=== PATIENT | male | born 1935 | race Caucasian/White ===

== ENCOUNTER 2021-10-27 19:31 | Outpatient (CLI) | payer OTHER, SELFPAY | END 2021-10-27 19:32 | disposition home or self-care (01) | PROVIDERS: Visit Provider Family Medicine | DX: S09.90XA Unspecified injury of head, initial encounter (principal); W18.30XA Fall on same level, unspecified, initial encounter; Y92.000 Kitchen of unspecified non-institutional (private) residence as the place of occurrence of the external cause | CPT/HCPCS: A0425; A0427 ==

== ENCOUNTER 2021-10-27 19:53 | Emergency (ER) | payer OTHER, SELFPAY ==
[2021-10-27] VITALS (26 sets, daily range): BP systolic 132–144; BP diastolic 78–85; PULSE 69–76; RESP 16–72; TEMP 36.9; O2SAT 93–98; BMI 20.9
--- NOTE | 2021-10-27 19:59 | CRLHL7_ITS ---
For Patients: As a result of the Century Cures Act, medical imaging exams and procedure reports are released immediately into your electronic medical record. You may view this report before your referring provider. If you have questions, please contact your health care provider. INDICATION: Fall with loss of consciousness. TECHNIQUE: CT head without contrast. COMPARISON: None. FINDINGS: CSF spaces: Within normal limits for age. Brain parenchyma and extra-axial spaces: Generalized atrophy. No sign of mass, hemorrhage, or midline shift. No extra-axial fluid collection. Skull base and calvarium: The visualized paranasal sinuses and mastoid air cells demonstrate no acute or significant findings. The visualized orbits are grossly unremarkable. No skull fractures. IMPRESSION: Unremarkable noncontrast head CT for age. No sign of acute injury. Please note that all CT scans at this facility use dose modulation, iterative reconstruction, and/or weight-based dosing when appropriate to reduce radiation dose to as low as reasonably achievable. Dictated by Chaitanya Mckeon MD @ 10/27/2021 8:17:58 PM (Electronically Signed)
--- NOTE | 2021-10-27 19:59 | CRLHL7_ITS ---
For Patients: As a result of the Cures Act, medical imaging exams and procedure reports are released immediately into your electronic medical record. You may view this report before your referring provider. If you have questions, please contact your health care provider. INDICATION: Fall. TECHNIQUE: CT cervical spine without contrast. COMPARISON: None. FINDINGS: Vertebrae: Alignment is normal. There are no fractures or suspicious bony lesions. Discs and facet joints: There are degenerative disc changes most severe at C6-7. There are multilevel degenerative changes in the facets. Extraspinal findings: Paraspinous soft tissues are unremarkable. IMPRESSION: 1. No sign of acute injury. 2. Multilevel degenerative spondylosis. Please note that all CT scans at this facility use dose modulation, iterative reconstruction, and/or weight-based dosing when appropriate to reduce radiation dose to as low as reasonably achievable. Dictated by Chaitanya Mckeon MD @ 10/27/2021 8:20:30 PM (Electronically Signed)
--- NOTE | 2021-10-27 20:14 | ED.GENADULT ---
HPI - General Adult General Date Seen: 10/27/21 Chief complaint: Fall/Minor Trauma Stated complaint: Head Injury Time Seen by Provider: 10/27/21 20:00 Source: patient, EMS and RN notes reviewed Mode of arrival: EMS History of Present Illness HPI narrative: Patient is an 86-year-old male that was brought in by EMS on a trauma team activation. Patient was reportedly clean out the Fridge when he fell backward hitting his head. He reportedly has a history of dizziness and loss of balance. His was reported to be a poor historian per EMS but did state that he lost consciousness. Was unknown how long. Patient was met in the hallway on arrival to the ER. He was taken directly to the CT scan. He had reported to have had abrasion on the back of his head from the fall, not an open cut. It has stopped bleeding by the time he had gotten here. He is unaware if he is on any blood thinners, unaware of medicines. He was alert on arrival there, normal blood sugar per EMS. He is denying any headache, no visual changes, no neck pain, no difficulty breathing. He has had a pacemaker and has had some left upper extremity issues since having the pacemaker. No abdominal pain no numbness tingling weakness reported anywhere. He is following commands moving arms and legs upon request. When asked him if he knew what was happening before the fall he starts talking about the hospital and then states they are trying to take her blood pressure. I do wonder if he actually has a period where he does not remember what happened in his room membrane when the ambulance arrived. EMS did report that he had loss of memory for the events around the fall. He lives in [facility]. Son his present later and states that his dad was helping his mom clean out the freezer which was not working. When he got to the bottom of it, he stood up and became dizzy and fell backwards hitting his head on the floor. His son notes that he has had some problems with dizziness. He is pacemaker defibrillator in, has known left bundle branch block per his son. He does have a cardiomyopathy per his son. He was having issues with ventricular dysrhythmia as an [facility] started amiodarone per his son. Related Data Home Medications Medication Instructions Recorded Confirmed amiodarone 200 mg tablet 200 mg PO Q24H 10/27/21 10/27/21 carvedilol 3.125 mg tablet 3.125 mg PO Q12H 10/27/21 10/27/21 eplerenone 25 mg tablet 12.5 mg PO DAILY 10/27/21 10/27/21 mometasone 50 mcg/actuation nasal 2 spray intranasal DAILY 10/27/21 10/27/21 spray multivitamin (Daily Multi-Vitamin 1 tab PO DAILY 10/27/21 10/27/21 tablet) pravastatin 80 mg tablet 80 mg PO DAILY 10/27/21 10/27/21 rivastigmine tartrate 1.5 mg 6 mg PO BID 10/27/21 10/27/21 capsule sertraline 50 mg tablet 50 mg PO Q24H 10/27/21 10/27/21 tamsulosin 0.4 mg capsule 0.4 mg PO Q24H 10/27/21 10/27/21 vitamin A-vitamin C-vit E-min 1 tab PO DAILY 10/27/21 10/27/21 tablet (Ocutabs tablet) Allergies Allergy/AdvReac Type Severity Reaction Status Date / Time bupropion [From Wellbutrin] Allergy Verified 10/27/21 20:23 Review of Systems Status of ROS: Reports: 10 or more systems reviewed and unremarkable except as noted in History and below [facility] Medical History (Updated 10/27/21 @ 21:34 by Milady Matthews MD) Cardiac abnormality Dementia Pacemaker Social History Smoking Status: Former smoker Do you use any of these nicotine containing products: None Second hand tobacco smoke exposure: No How often do you have a drink containing alcohol: never AUDIT-C Alcohol total score: 0 Non-prescribed substance use: denies use service: No Exam Const: Vital Signs, click to edit/add: Vital Signs - 24 hr 10/27/21 19:53 Temperature 98.4 F Pulse Rate [Left P ulse Oximeter] 72 Respiratory Rate 20 Blood Pressure [Ri ght Upper Arm] 140/82 H Pulse Oximetry 96 Oxygen Delivery Me thod Room Air Documenting provider has reviewed patient's vital signs: yes Common normals: no apparent distress, no limitations, healthy appearing and alert General appearance: cooperative and comfortable Nutritional appearance: thin Orientation/consciousness: Yes awake and Yes confused HENMT: Common normals: normocephalic, hearing grossly normal bilaterally, external ears normal, external nose normal, nasal mucous membranes and turbinates normal, moist oral mucous membranes and oropharynx normal Head and scalp: normocephalic Nose: external nose normal and nasal mucous membranes and turbinates normal External ear: external ears normal Other: Has dried blood on the back of his head. Will have to examine his scalp closer once cleaned up. Was reported to be an abrasion by EMS. No midline tenderness of his neck but he is in a C-collar per EMS. Eye: Common normals: PERRL, EOMs intact bilaterally, conjunctivae normal and no scleral icterus Conjunctiva: conjunctiva(e) normal Pupil: PERRL Neck & C-Spine: Cervical spine: collar present (No midline tenderness noted) Chest: Common normals: inspection of chest normal Resp: Common normals: normal respiratory effort, no retractions, no use of accessory muscles and clear to auscultation bilaterally Auscultation: clear to auscultation bilaterally Cardio: Common normals: regular rate, regular rhythm, S1 normal heart sound, S2 normal heart sound, no gallops, no clicks and no murmurs Rate: regular rate Rhythm: regular rhythm Heart sounds: S1 normal and S2 normal GI: Common normals: Normal to inspection, nondistended, normoactive bowel sounds present, soft to palpation, non-tender, no hepatosplenomegaly and no masses Palpation: soft and no hepatosplenomegaly Extremity: Common normals: normal to inspection, full ROM, no joint enlargement, no calf tenderness and no pedal edema Neuro: Allyn Coma Scale: document GCS findings Ingrid coma scale eye opening: Spontaneous (4) Allyn coma scale verbal response: Orientated (5) (Believe he likely has dementia but is wide awake) Allyn coma scale motor response: Obey commands (6) Ingrid coma scale total score: 15 Common normals: CN's II-XII intact bilaterally, moves all extremities, no focal motor deficits and no sensory deficits noted Sensorium/orientation: awake and alert Course Course Hospital Course: Patient will be going directly to CT scan for noncontrast head CT and cervical spine CT. When he returns to the ER we will do further evaluation workup. I will attempt to look up some prior history on him in the interim. Reevaluation(s) Reevaluation #1: Did remove patient's C-spine collar and he had good range of motion no complaints of pain nontender. On his left occipital area there is about a 2 cm vertically situated laceration, mildly oozing. This will need repair. He has no midline tenderness over his back, back inspected at this point and no visible traumatic changes either. Did look in our old [facility] and there is only a sleep study. Time: 20:45 Vital Signs Vital signs: Initial Vital Signs Temperature 98.4 F 10/27/21 19:53 Temperature Source Temporal Artery Scan 10/27/21 19:53 Pulse Rate 72 10/27/21 19:53 Respiratory Rate 20 10/27/21 19:53 Blood Pressure 140/82 H 10/27/21 19:53 Blood Pressure Mean 101 10/27/21 19:53 Blood Pressure Position Sitting 10/27/21 19:53 Pulse Oximetry 96 10/27/21 19:53 Oxygen Delivery Method 10/27/21 19:53 Vital Signs Temperature 98.4 F 10/27/21 19:53 Pulse Rate 72 10/27/21 19:53 Respiratory Rate 20 10/27/21 19:53 Blood Pressure 140/82 H 10/27/21 19:53 Pulse Oximetry 96 10/27/21 19:53 Oxygen Delivery Method 10/27/21 19:53 Temperature 98.4 F 10/27/21 19:53 Pulse Rate 72 10/27/21 19:53 Respiratory Rate 20 10/27/21 19:53 Blood Pressure 140/82 H 10/27/21 19:53 Pulse Oximetry 96 10/27/21 19:53 Oxygen Delivery Method 10/27/21 19:53 Medical Decision Making Lab Data Lab results reviewed: Yes I reviewed the patient's lab results Labs: Lab Results 10/27/21 10/27/21 Range/Units 08:52 20:53 WBC 6.03 (4.50-11.00) K/uL RBC 3.71 L (4.30-5.90) m/uL Hgb 11.6 L (13.5-17.5) gm/dL Hct 35.8 L (37.0-53.0) % MCV 97 (80-100) fL MCH 31 (26-34) pg MCHC 32 (32-36) gm/dL RDW Coeff of Claudia 14.0 (11.5-15.5) % Plt Count 144 (140-440) K/uL Neut % (Auto) 63.8 (42.0-72.0) % Lymph % (Auto) 19.7 L (20-44) % Green % (Auto) 13.4 H (0.0-11.0) % Eos % (Auto) 2.5 (0.0-7.0) % Baso % (Auto) 0.3 (0.0-3.0) % Neut # (Auto) 3.84 (1.7-7.0) K/uL Lymph # (Auto) 1.20 (0.90-2.90) K/uL Green # (Auto) 0.80 (0.00-0.90) K/UL Eos # (Auto) 0.15 (0.00-0.50) K/uL Baso # (Auto) 0.02 (0.00-0.30) K/uL Abs Immat Gran (auto) 0.02 (0.00-0.30) K/uL Sodium 139 (135-149) mmol/L Potassium 4.0 (3.6-5.1) mmol/L Chloride 105 (96-114) mmol/L Carbon Dioxide 27 (20-32) mmol/L BUN 23 (7-30) mg/dL Creatinine 1.2 (0.5-1.5) mg/dL Estimated Creat Clear 44.47 Estimated GFR 59 ml/min Glucose 92 (60-115) mg/dL Calcium 9.1 (8.4-10.6) mg/dL Total Bilirubin 0.4 (0.1-1.5) mg/dL AST 30 (12-35) U/L ALT 25 (4-50) U/L Alkaline Phosphatase 46 (40-150) U/L Troponin I < 0.01 L (0.01-0.04) ng/mL Total Protein 7.3 (6.0-8.3) g/dL Albumin 4.1 (3.3-5.0) g/dL Imaging Data CT scan - head: Attestation: I have reviewed the pertinent imaging results. Radiologist's impression: Patient: HAO NUÑEZ Facility:?[facility] Patient ID:?[id number] Site Patient ID:?[id number]. Site :?[id number] Study:?CT Head WITHOUT-10/27/2021 8:07:28 PM Ordering Physician:?Cassie Henning Final Report: INDICATION: Fall with loss of consciousness. TECHNIQUE: CT head without contrast. COMPARISON: None. FINDINGS: CSF spaces: Within normal limits for age. Brain parenchyma and extra-axial spaces: Generalized atrophy. No sign of mass, hemorrhage, or midline shift. No extra-axial fluid collection. Skull base and calvarium: The visualized paranasal sinuses and mastoid air cells demonstrate no acute or significant findings. The visualized orbits are grossly unremarkable. No skull fractures. IMPRESSION: Unremarkable noncontrast head CT for age. No sign of acute injury. Please note that all CT scans at this facility use dose modulation, iterative reconstruction, and/or weight-based dosing when appropriate to reduce radiation dose to as low as reasonably achievable. Dictated by Chaitanya Mckeon MD @ 10/27/2021 8:17:58 PM (Electronic Signature) CT- Other: Attestation: I have reviewed the pertinent imaging results. Radiologist's impression: Patient: HAO NUÑEZ Facility:?[facility] Patient ID:?[id number] Site Patient ID:?[id number]. Site :?[id number] Study:?CT Spine Cervical WITHOUT-10/27/2021 8:07:55 PM Ordering Physician:?Cassie Henning Final Report: INDICATION: Fall. TECHNIQUE: CT cervical spine without contrast. COMPARISON: None. FINDINGS: Vertebrae: Alignment is normal. There are no fractures or suspicious bony lesions. Discs and facet joints: There are degenerative disc changes most severe at C6-7. There are multilevel degenerative changes in the facets. Extraspinal findings: Paraspinous soft tissues are unremarkable. IMPRESSION: 1. No sign of acute injury. 2. Multilevel degenerative spondylosis. Please note that all CT scans at this facility use dose modulation, iterative reconstruction, and/or weight-based dosing when appropriate to reduce radiation dose to as low as reasonably achievable. Dictated by Chaitanya Mckeon MD @ 10/27/2021 8:20:30 PM (Electronic Signature) ECG Data Attestation: I personally reviewed and interpreted this ECG as follows: (AV dual paced rhythm, 72 beats per minute.) Prior ECG tracings: not available for review Critical Care Time Critical Care Time Critical Care Time: No Discharge Plan Discharge Clinical Impression: Fall, Laceration of scalp Condition: Stable Instructions: Fall Prevention for Older Adults (ED), Staple Care (ED) Additional Instructions: Need to schedule clinic followup in about 7-10 days to assess the wound for staple removal. Be careful combing hair or washing hair to not disrupt or pull the nicolas. If he has never done so, recommend physical therapy evaluation for gait safety and possibly strengthening to help with your gait stability. Your primary care provider can write for this. Prescriptions: No Action pravastatin 80 mg tablet 80 mg PO DAILY multivitamin [Daily Multi-Vitamin] Tablet 1 tab PO DAILY mometasone 50 mcg/actuation spray,non-aerosol 2 spray intranasal DAILY Rx Instructions: administer into each nostril rivastigmine tartrate 1.5 mg capsule 6 mg PO BID Ocutabs Tablet 1 tab PO DAILY tamsulosin 0.4 mg capsule 0.4 mg PO Q24H sertraline 50 mg tablet 50 mg PO Q24H eplerenone 25 mg tablet 12.5 mg PO DAILY amiodarone 200 mg tablet 200 mg PO Q24H carvedilol 3.125 mg tablet 3.125 mg PO Q12H Stand Alone Forms: [employer] Info Instructions Procedures Laceration Laceration 1: Pre procedure diagnosis: Left occipital scalp laceration Post procedure diagnosis: Same Site marking: not applicable Verification/time out: correct patient, correct site, correct procedure and time out performed Name of person performing procedure: Milady Matthews Site: scalp Size (cm): 2.0 Description: linear Depth: simple, single layer Local Anesthetic: lidocaine 1% and with epi Amount of anesthesia used (mL): 7 (10 mL were drawn up, 7 mL used) Pre-repair: wound explored, irrigated extensively (By plasma processing technician) and deep structures intact Skin layer closed with: other (Wound stapled)
[2021-10-27 20:52] LABS: Basophils Absolute Auto 0.02 K/uL (0.00-0.30); Basophils Percent Auto 0.3 % (0.0-3.0); Eosinophils Absolute Auto 0.15 K/uL (0.00-0.50); Eosinophils Percent Auto 2.5 % (0.0-7.0); Hematocrit 35.8 % (37.0-53.0); Hemoglobin* 11.6 gm/dL (13.5-17.5); Immature Granulocytes Abs Auto 0.02 K/uL (0.00-0.30); Lymphocytes Percent Auto 19.7 % (20-44); Mean Corpuscular HGB Conc 32 gm/dL (32-36); Mean Corpuscular Hemoglobin 31 pg (26-34); Mean Corpuscular Volume 97 fL (80-100); Monocytes Percent Auto 13.4 % (0.0-11.0); Neutrophils Absolute Auto 3.84 K/uL (1.7-7.0); Neutrophils Percent Auto 63.8 % (42.0-72.0); Platelet Count* 144 K/uL (140-440); Red Blood Count 3.71 m/uL (4.30-5.90); White Blood Count* 6.03 K/uL (4.50-11.00)
[2021-10-27 20:54] LABS: Slide Review Reflex No
[2021-10-27 21:06] LABS: Albumin* 4.1 g/dL (3.3-5.0); Chloride* 105 mmol/L (96-114)
[2021-10-27 21:07] LABS: Sodium* 139 mmol/L (135-149)
[2021-10-27 21:09] LABS: Alkaline Phosphatase* 46 U/L (40-150); Aspartate Amino Transferase* 30 U/L (12-35); Bilirubin Total* 0.4 mg/dL (0.1-1.5); Blood Urea Nitrogen* 23 mg/dL (7-30); Carbon Dioxide* 27 mmol/L (20-32); Creatinine* 1.2 mg/dL (0.5-1.5); Est. Creatinine Clearance* 44.47; Estimated Glomerular Filt Rate 59 ml/min; Total Protein* 7.3 g/dL (6.0-8.3)
--- NOTE | 2021-10-27 21:09 | ED.NURSE ---
wound irrigated by JEFFY hickey MD informed.
[2021-10-27 21:10] LABS: Alanine Aminotransferase* 25 U/L (4-50); Calcium* 9.1 mg/dL (8.4-10.6); Glucose* 92 mg/dL (60-115)
[2021-10-27 21:22] LABS: Troponin I* < 0.01 ng/mL (0.01-0.04)
== END 2021-10-27 22:30 | disposition home or self-care (01) ==
PROVIDERS: Emergency Provider Family Medicine
DX: S01.01XA Laceration without foreign body of scalp, initial encounter (principal); R42 Dizziness and giddiness; W19.XXXA Unspecified fall, initial encounter
CPT/HCPCS: 12001; 36415; 70450; 72125; 80053; 84484; 85025; 93005; 99284; 99291; G0390

== ENCOUNTER 2022-09-25 12:41 | Inpatient (IN) | payer OTHER, SELFPAY ==
[2022-09-25 12:59] VITALS: BP 108/72; PULSE 69; RESP 16; TEMP 36.7; O2SAT 99; BMI 22.5
--- NOTE | 2022-09-25 13:18 | CRLHL7_ITS ---
For Patients: As a result of the Cures Act, medical imaging exams and procedure reports are released immediately into your electronic medical record. You may view this report before your referring provider. If you have questions, please contact your health care provider. Indication: Trauma. Technique: Right elbow, 3 views. Comparison: None. Findings: Bones: Alignment is normal. No fractures or bone lesions. Joint spaces: Unremarkable. Soft tissues: Soft tissue swelling surrounding the elbow.. Impression: No acute fractures or dislocations identified. Soft tissue swelling surrounding the elbow. Dictated by Emma Encinas MD @ 09/25/2022 2:49:28 PM (Electronically Signed)
--- NOTE | 2022-09-25 13:18 | CRLHL7_ITS ---
For Patients: As a result of the Cures Act, medical imaging exams and procedure reports are released immediately into your electronic medical record. You may view this report before your referring provider. If you have questions, please contact your health care provider. Indication: Trauma. Technique: Right knee, 3 views. Comparison: None. Findings: Bones: Alignment is normal. No fractures or bone lesions. Joint spaces: Mild tricompartmental degenerative changes.. Soft tissues: Mild prepatellar soft tissue swelling.. Impression: No acute fracture or dislocation identified. Mild soft tissue swelling. Dictated by Emma Encinas MD @ 09/25/2022 2:55:47 PM (Electronically Signed)
--- NOTE | 2022-09-25 13:18 | CRLHL7_ITS ---
For Patients: As a result of the Cures Act, medical imaging exams and procedure reports are released immediately into your electronic medical record. You may view this report before your referring provider. If you have questions, please contact your health care provider. Indication: Hip pain Technique: Right hip 2 views Comparison: None Findings: Bones: Alignment is normal. No fractures or bone lesions. Diffuse mild demineralization of the visualized bones. Joint spaces: Mild bilateral hip degenerative changes. Soft tissues: Vascular calcifications are noted. Impression: No acute fracture or dislocation identified. Dictated by Emma Encinas MD @ 09/25/2022 2:52:35 PM (Electronically Signed)
--- NOTE | 2022-09-25 13:18 | CRLHL7_ITS ---
For Patients: As a result of the Cures Act, medical imaging exams and procedure reports are released immediately into your electronic medical record. You may view this report before your referring provider. If you have questions, please contact your health care provider. Indication: Trauma. Technique: Right hand, 3 views. Comparison: None. Findings: Bones: Alignment is normal. No fractures or bone lesions. Joint spaces: Severe degenerative changes of the 1st and 2nd CMC.. Mild to moderate degenerative changes elsewhere Soft tissues: Soft tissue swelling surrounding the wrist.. Impression: No acute fractures or dislocations identified. Soft tissue swelling surrounding the wrist. Dictated by Emma Encinas MD @ 09/25/2022 2:54:14 PM (Electronically Signed)
--- NOTE | 2022-09-25 13:27 | ED.GENADULT ---
HPI - General Adult General Time Seen by Provider: 13:28 Date Seen: 09/25/22 Chief complaint: Fall/Minor Trauma Stated complaint: fall, right hip pain Time Seen by Provider: 09/25/22 12:44 Source: patient Mode of arrival: ambulatory Limitations: no limitations History of Present Illness HPI narrative: Patient is an 87-year-old male presented emergency department for right the in hip pain. Patient states he was cranial vehicle walking with his walker with a smaller profile. When it fell it caused him to turn around to try and reach for it at this point he states a losses balance and fell. States that his right hip and cons of his right arm. States he never hit his head. Denies any loss of consciousness. Denies any lightheadedness or dizziness before or after the event occurred. States he tried to walk after the fall but states that was a lipoma pain. Does note the pain in his hip resolves if he flexes his hip and knee to relieve the pressure. States his last tetanus has been within the past 10 years. He has abrasion to his right hand and elbow. No tenderness noted to the elbow, wrist, hip, knee. No other injuries noted. Related Data Home Medications Medication Instructions Recorded Confirmed amiodarone 200 mg tablet 200 mg PO HS 10/27/21 09/25/22 carvedilol 3.125 mg tablet 3.125 mg PO Q12H 10/27/21 09/25/22 eplerenone 25 mg tablet 12.5 mg PO DAILY 10/27/21 09/25/22 mometasone 50 mcg/actuation nasal 2 spray intranasal DAILY 10/27/21 09/25/22 spray multivitamin (Daily Multi-Vitamin 1 tab PO DAILY 10/27/21 09/25/22 tablet) pravastatin 80 mg tablet 80 mg PO HS 10/27/21 09/25/22 rivastigmine tartrate 1.5 mg 6 mg PO BID 10/27/21 09/25/22 capsule sertraline 50 mg tablet 50 mg PO Q24H 10/27/21 09/25/22 tamsulosin 0.4 mg capsule 0.4 mg PO Q24H 10/27/21 09/25/22 vitamin A-vitamin C-vit E-min 1 tab PO DAILY 10/27/21 09/25/22 tablet (Ocutabs tablet) Lactobacillus acidophilus 10 10,000 mmu cells PO DAILY 09/25/22 09/25/22 billion cell capsule (Probacap) calcium carbonate 600 mg calcium 600 mg PO DAILY 09/25/22 09/25/22 (1,500 mg) tablet (Calcium) cholecalciferol (vitamin D3) 125 5,000 unit PO DAILY 09/25/22 09/25/22 mcg (5,000 unit) tablet (Vitamin D3) cholecalciferol (vitamin D3) 25 25 mcg PO DAILY 09/25/22 09/25/22 mcg (1,000 unit) capsule cyanocobalamin (vitamin B-12) 1,000 mcg PO DAILY 09/25/22 09/25/22 1,000 mcg capsule metoprolol succinate 25 mg 25 mg PO HS 09/25/22 09/25/22 tablet,extended release 24 hr polyethylene glycol 3350 17 17 g PO DAILY PRN 09/25/22 09/25/22 gram/dose oral powder (Miralax) psyllium husk 3.4 gram/5.4 gram 1 tbsp PO BID PRN 09/25/22 09/25/22 oral powder (Metamucil) rivastigmine tartrate 3 mg capsule 6 mg PO BID 09/25/22 09/25/22 sacubitril 24 mg-valsartan 26 mg 1 tab PO BID 09/25/22 09/25/22 tablet (Entresto) vit C 250 mg-vit E 90 mg-zinc 40 1 tab PO DAILY 09/25/22 09/25/22 mg-copper 1 [id number] capsule (PreserVision AREDS-2) Allergies Allergy/AdvReac Type Severity Reaction Status Date / Time bupropion [From Wellbutrin] Allergy Verified 09/25/22 12:55 Review of Systems Narrative: Review of systems otherwise negative unless stated in the [facility] [place] Medical History (Updated 09/25/22 @ 18:46 by Luisito Suarez MD) Recurrent falls ?R29.6 - Repeated falls (ICD-10) Major depressive disorder in partial remission ?F32.4 - Major depressive disorder, single episode, in partial remission (ICD-10) Heart failure with reduced ejection fraction ?I50.20 - Unspecified systolic (congestive) heart failure (ICD-10) Obstructive sleep apnea on CPAP ?G47.33 - Obstructive sleep apnea (adult) (pediatric) (ICD-10) ICD (implantable cardioverter-defibrillator) in place ?Z95.810 - Presence of automatic (implantable) cardiac defibrillator (ICD-10) Paroxysmal atrial fibrillation ?I48.0 - Paroxysmal atrial fibrillation (ICD-10) Prolonged QT interval ?R94.31 - Abnormal electrocardiogram [ECG] [EKG] (ICD-10) Thrombocytopenia ?D69.6 - Thrombocytopenia, unspecified (ICD-10) Thoracic aortic aneurysm, without rupture, unspecified ?I71.20 - Thoracic aortic aneurysm, without rupture, unspecified (ICD-10) Nonischemic dilated cardiomyopathy ?I42.0 - Dilated cardiomyopathy (ICD-10) Left bundle branch block (LBBB) ?I44.7 - Left bundle-branch block, unspecified (ICD-10) Orthostasis ?I95.1 - Orthostatic hypotension (ICD-10) Benign prostatic hyperplasia with lower urinary tract symptoms ?N40.1 - Benign prostatic hyperplasia with lower urinary tract symptoms (ICD-10) Mixed hyperlipidemia ?E78.2 - Mixed hyperlipidemia (ICD-10) Sensorineural hearing loss (SNHL), bilateral ?H90.3 - Sensorineural hearing loss, bilateral (ICD-10) Adjustment disorder with mixed anxiety and depressed mood ?F43.23 - Adjustment disorder with mixed anxiety and depressed mood (ICD-10) 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.0 - Latent syphilis, unspecified as early or late (ICD-10) Idiopathic peripheral neuropathy ?G60.9 - Hereditary and idiopathic neuropathy, unspecified (ICD-10) Essential hypertension ?I10 - Essential (primary) hypertension (ICD-10) Functional gait abnormality ?R26.89 - Other abnormalities of gait and mobility (ICD-10) Pacemaker ?Z95.0 - Presence of cardiac pacemaker (ICD-10) Cardiac abnormality ?Q24.9 - Congenital malformation of heart, unspecified (ICD-10) Dementia ?F03.90 - Unspecified dementia without behavioral disturbance (ICD-10) Surgical History (Updated 09/25/22 @ 17:25 by Luisito Suarez MD) Status post cataract surgery ?Z98.49 - Cataract extraction status, unspecified eye (ICD-10) Status post hemorrhoidectomy ?Z98.890 - Other specified postprocedural states (ICD-10) ?Z87.19 - Personal history of other diseases of the digestive system (ICD-10) History of esophagogastroduodenoscopy (EGD) ?Z98.890 - Other specified postprocedural states (ICD-10) S/P colonoscopy ?Z98.890 - Other specified postprocedural states (ICD-10) Status post appendectomy ?Z90.49 - Acquired absence of other specified parts of digestive tract (ICD-10) Status post biventricular cardiac pacemaker insertion ?Z95.0 - Presence of cardiac pacemaker (ICD-10) Social History (Updated 09/25/22 @ 17:27 by Luisito Suarez MD) Narrative: . Lives with in assisted living facility. Retired. Designates son, Roldan, as POA for health if needed, cell phone [phone]. Dr. Cárdenas is his PCP. Await decision about resuscitation status. What is your current living situation?: I presently have a place to live Problems where you live: no known problems Problems where you live details: n/a In the past 12 months, utilities in danger of being shut off: no In the past 12 mos, have been you worried that your food would run out before you had money to buy more?: never true In the past 12 mos, the food you bought just didn't last and you didn't have money to buy more?: never true Highest level of school completed/degree received: Master's degree Smoking Status: Former smoker Do you use any of these nicotine containing products: None Second hand tobacco smoke exposure: No How often do you have a drink containing alcohol: never AUDIT-C Alcohol total score: 0 Non-prescribed substance use: denies use Caffeine: Yes (4 cups of coffee/day) How often does anyone, including family, friends and others, physically hurt you: never How often does anyone, including family, friends and others, insult or talk down to you: never How often does anyone, including family, friends and others, threaten you with harm: never How often does anyone, including family, friends and others, scream or curse at you: never service: No Exam Const: Vital Signs, click to edit/add: Vital Signs - 24 hr 09/25/22 12:59 09/25/22 16:13 09/25/22 17:32 Temperature 98.1 F 98.1 F Pulse Rate [Pulse Oximeter] 69 73 Respiratory Rate 16 17 18 Blood Pressure [Ri ght Upper Arm] 108/72 121/82 Pulse Oximetry 99 90 91 Oxygen Delivery Me thod Room Air Room Air Room Air Course Vital Signs Vital signs: Initial Vital Signs Temperature 98.1 F 09/25/22 12:59 Temperature Source Temporal Artery Scan 09/25/22 12:59 Pulse Rate 69 09/25/22 12:59 Pulse Rhythm Regular 09/25/22 12:59 Pulse Strength 3+ Normal 09/25/22 12:59 Respiratory Rate 16 09/25/22 12:59 Blood Pressure 108/72 09/25/22 12:59 Blood Pressure Mean 84 09/25/22 12:59 Blood Pressure Position Sitting 09/25/22 12:59 Pulse Oximetry 99 09/25/22 12:59 Oxygen Delivery Method Room Air 09/25/22 12:59 Vital Signs Temperature 98.1 F 09/25/22 12:59 Pulse Rate 69 09/25/22 12:59 Respiratory Rate 16 09/25/22 12:59 Blood Pressure 108/72 09/25/22 12:59 Pulse Oximetry 99 09/25/22 12:59 Oxygen Delivery Method Room Air 09/25/22 12:59 Temperature 98.1 F 09/25/22 17:32 Pulse Rate 73 09/25/22 16:13 Respiratory Rate 18 09/25/22 17:32 Blood Pressure 121/82 09/25/22 16:13 Pulse Oximetry 91 09/25/22 17:32 Oxygen Delivery Method Room Air 09/25/22 17:32 Medical Decision Making [facility] Narrative Medical decision making narrative: Patient has an 87-year-old male presented emergency department after mechanical fall. States last right hip, knee, elbow, wrist. Did not hit his head according to the patient. No lightheadedness dizziness associated with the fall. He has no tenderness right now because of pain in his hip when he keeps his leg straight he states it is painful to walk on it. Do this we will x-ray his right hip and right knee. He also fell on the right arm so we will x-ray the elbow and wrist also. He is managed did not hit his head and I see no injuries to the head so I not believe he needs head CT at this time. X-rays of the right elbow, wrist, knee showed no concerning abnormalities. Or right upper pelvis and hip CT was read as showing no concerning abnormalities but that is. We some of disruption seen on the x-ray. Do this to get a better view do a CT scan of the right hip. The CT scan returned showing a subcapital right femoral fracture. This is consistent with the patient's symptoms and I spoke to the on-call ortho PAPablo, he states the patient likely go for surgery tomorrow. Patient be admitted to the hospitalist service. He was started have some pain in 1 dose of Toradol was given. Patient and his family agree with this plan. Lab Data Labs: Lab Results 09/25/22 Range/Units 17:07 WBC 8.90 (4.50-11.00) K/uL RBC 3.61 L (4.30-5.90) m/uL Hgb 11.4 L (13.5-17.5) gm/dL Hct 35.5 L (37.0-53.0) % MCV 98 (80-100) fL MCH 32 (26-34) pg MCHC 32 (32-36) gm/dL RDW Coeff of Claudia 13.7 (11.5-15.5) % Plt Count 120 L (140-440) K/uL Neut % (Auto) 81.1 H (42.0-72.0) % Lymph % (Auto) 9.4 L (20-44) % [place] % (Auto) 8.5 (0.0-11.0) % Eos % (Auto) 0.7 (0.0-7.0) % Baso % (Auto) 0.1 (0.0-3.0) % Neut # (Auto) 7.20 H (1.7-7.0) K/uL Lymph # (Auto) 0.80 L (0.90-2.90) K/uL [place] # (Auto) 0.80 (0.00-0.90) K/UL Eos # (Auto) 0.06 (0.00-0.50) K/uL Baso # (Auto) 0.01 (0.00-0.30) K/uL Abs Immat Gran (auto) 0.02 (0.00-0.30) K/uL Imm/Tot Granulo (auto) 0.2 % Sodium 136 (135-149) mmol/L Potassium 3.9 (3.6-5.1) mmol/L Chloride 103 (96-114) mmol/L Carbon Dioxide 28 (20-32) mmol/L BUN 22 (7-30) mg/dL Creatinine 1.0 (0.5-1.5) mg/dL Estimated Creat Clear 57.15 Estimated GFR 73 ml/min Glucose 93 (60-115) mg/dL Calcium 8.7 (8.4-10.6) mg/dL Discharge Plan Discharge Clinical Impression: Closed hip fracture Patient Disposition: Admitted As Observation Condition: Stable
--- NOTE | 2022-09-25 15:00 | CRLHL7_ITS ---
For Patients: As a result of the Century Cures Act, medical imaging exams and procedure reports are released immediately into your electronic medical record. You may view this report before your referring provider. If you have questions, please contact your health care provider. INDICATION: Fall. Right hip pain. COMPARISON: 09/25/2022 radiographs. TECHNIQUE: CT pelvis without contrast. FINDINGS: Acute mildly impacted subcapital right proximal femur fracture. [id number] bilateral hip degenerative arthrosis. Bones are demineralized. Diffuse mild bladder wall thickening can be seen with chronic outlet obstruction or cystitis. Fat containing left inguinal hernia. IMPRESSION: Acute subcapital right proximal femur fracture. Please note that all CT scans at this facility use dose modulation, iterative reconstruction, and/or weight-based dosing when appropriate to reduce radiation dose to as low as reasonably achievable. Dictated by Prosper Yang MD @ 09/25/2022 3:41:36 PM (Electronically Signed)
[2022-09-25 16:13] VITALS: BP 121/82; PULSE 73; RESP 17; O2SAT 90
[2022-09-25] MEDS: KETOROLAC 15 MG/ML inj IVP (16:29)
[2022-09-25 17:17] LABS: Basophils Absolute Auto 0.01 K/uL (0.00-0.30); Basophils Percent Auto 0.1 % (0.0-3.0); Eosinophils Absolute Auto 0.06 K/uL (0.00-0.50); Eosinophils Percent Auto 0.7 % (0.0-7.0); Hematocrit 35.5 % (37.0-53.0); Hemoglobin* 11.4 gm/dL (13.5-17.5); Immature Granulocytes Abs Auto 0.02 K/uL (0.00-0.30); Immature Granulocytes Pct Auto 0.2 %; Lymphocytes Percent Auto 9.4 % (20-44); Mean Corpuscular HGB Conc 32 gm/dL (32-36); Mean Corpuscular Hemoglobin 32 pg (26-34); Mean Corpuscular Volume 98 fL (80-100); Monocytes Percent Auto 8.5 % (0.0-11.0); Neutrophils Percent Auto 81.1 % (42.0-72.0); Platelet Count* 120 K/uL (140-440); RDW Coefficient of Variation % 13.7 % (11.5-15.5); Red Blood Count 3.61 m/uL (4.30-5.90)
[2022-09-25 17:23] LABS: Slide Review Reflex No
[2022-09-25 17:27] LABS: Chloride* 103 mmol/L (96-114); Potassium* 3.9 mmol/L (3.6-5.1); Sodium* 136 mmol/L (135-149)
[2022-09-25 17:30] LABS: Blood Urea Nitrogen* 22 mg/dL (7-30); Carbon Dioxide* 28 mmol/L (20-32); Est. Creatinine Clearance* 57.15; Estimated Glomerular Filt Rate 73 ml/min; Glucose* 93 mg/dL (60-115)
[2022-09-25 17:31] LABS: Calcium* 8.7 mg/dL (8.4-10.6)
[2022-09-25 17:32] VITALS: RESP 18; TEMP 36.7; O2SAT 91; BMI 21.9
--- NOTE | 2022-09-25 21:11 | P.IMHP_ITS ---
Hospitalist- H&P: HPI History of Present Illness Time Seen by Provider: 15:30 Date Seen: 09/25/22 Chief complaint: fall, right hip pain Narrative: Param Tomas is a 87 year old man was in his usual state of health until he sustained a fall this morning around 1100. He stepped out of a passenger door in a car in his driveway, had a water bottle resting on the seat of his 4 wheel walker and this water bottle fell to the ground of the driveway and started to roll. He tells me he ignored his usual cautions and attempted to move quickly to grab the rolling water bottle and then lost his balance and fell. There were others nearby. He did not strike his head. Did not have any loss of consciousness. Others quickly helped him to the seat of his 4 wheeled walker. They brought him in the house. Did sustain a superficial skin abrasion on his right hand and right elbow. Initially had no complaint of pain however. It was not until around 1400 in the afternoon that he started to have a fair amount of pain, 1st in his left leg and then in his right leg. For while it seemed like the pain in the hip decreased when he flexed his hip and knees. After while the pain did not seem to respond to this maneuver. Friends who were attending him contacted his son, Roldan, who came in assessed his father promptly. Fill determined that his father needed additional assessment and intervention. He helped his father back to his 4 wheeled walker seat and then brought him to the car and drove him to the emergency department for further assessment. Review of Systems Status of ROS: Reports: 10 or more systems reviewed and unremarkable except as noted in History and below Narrative: Denies chest heaviness, pressure, tightness, or pain. Denies syncope or near- syncope. Denies loss of consciousness. Denies cough, dyspnea at rest, paroxysmal nocturnal dyspnea, orthopnea. Denies fevers, rigors, diaphoresis. Denies dysuria, urgency, frequency, hematuria. His alpha stephy, tamsulosin, was stopped about 3 weeks ago by his primary care physician due to orthostasis and falls. Claims not to be having difficulty with voiding since d iscontinuation of the tamsulosin. Denies diarrhea. Has had a fair amount of constipation recently. Had a single, transient episode of bright red blood per rectum in association with a bowel evacuation about 4-5 days ago. Is now taking measures to address the constipation including trying to be more hydrated, adding Metamucil, using MiraLax as needed. No other recent trauma or injury. Longstanding history of unstable gait with repeated falls. Three weeks ago his primary care physician recommended that he stop taking his tamsulosin due to orthostasis. For while his systolic blood pressures were typically in the 90s. Since discontinuation of the tamsulosin systolic blood pressures have been in the 110-130 range. Patient immediately stopped having daily falls and has had no falls since then until today. Today's fall was not related to a sense of orthostasis at all. Today's fall was more directly related to his loss of balance when trying to move quickly to stop and grabbed a water bottle that fell. Lives in [facility] with his . Does need and receive support in his home. Additionally, his medications are in pre packs from [facility] [employer]. He tells me he has helped taking his medications. [facility] Medical History (Updated 09/25/22 @ 21:40 by Luisito Suarez MD) Recurrent falls ?R29.6 - Repeated falls (ICD-10) Major depressive disorder in partial remission ?F32.4 - Major depressive disorder, single episode, in partial remission (ICD-10) Heart failure with reduced ejection fraction ?I50.20 - Unspecified systolic (congestive) heart failure (ICD-10) Obstructive sleep apnea on CPAP ?G47.33 - Obstructive sleep apnea (adult) (pediatric) (ICD-10) ICD (implantable cardioverter-defibrillator) in place ?Z95.810 - Presence of automatic (implantable) cardiac defibrillator (ICD-10) Paroxysmal atrial fibrillation ?I48.0 - Paroxysmal atrial fibrillation (ICD-10) Prolonged QT interval ?R94.31 - Abnormal electrocardiogram [ECG] [EKG] (ICD-10) Thrombocytopenia ?D69.6 - Thrombocytopenia, unspecified (ICD-10) Thoracic aortic aneurysm, without rupture, unspecified ?I71.20 - Thoracic aortic aneurysm, without rupture, unspecified (ICD-10) Nonischemic dilated cardiomyopathy ?I42.0 - Dilated cardiomyopathy (ICD-10) Left bundle branch block (LBBB) ?I44.7 - Left bundle-branch block, unspecified (ICD-10) Orthostasis ?I95.1 - Orthostatic hypotension (ICD-10) Benign prostatic hyperplasia with lower urinary tract symptoms ?N40.1 - Benign prostatic hyperplasia with lower urinary tract symptoms (ICD- 10) Mixed hyperlipidemia ?E78.2 - Mixed hyperlipidemia (ICD-10) Sensorineural hearing loss (SNHL), bilateral ?H90.3 - Sensorineural hearing loss, bilateral (ICD-10) Adjustment disorder with mixed anxiety and depressed mood ?F43.23 - Adjustment disorder with mixed anxiety and depressed mood (ICD-10) 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.0 - Latent syphilis, unspecified as early or late (ICD-10) Idiopathic peripheral neuropathy ?G60.9 - Hereditary and idiopathic neuropathy, unspecified (ICD-10) Essential hypertension ?I10 - Essential (primary) hypertension (ICD-10) Functional gait abnormality ?R26.89 - Other abnormalities of gait and mobility (ICD-10) Pacemaker ?Z95.0 - Presence of cardiac pacemaker (ICD-10) Cardiac abnormality ?Q24.9 - Congenital malformation of heart, unspecified (ICD-10) Dementia ?F03.90 - Unspecified dementia without behavioral disturbance (ICD-10) Surgical History (Updated 09/25/22 @ 17:25 by Luisito Suarez MD) Status post cataract surgery ?Z98.49 - Cataract extraction status, unspecified eye (ICD-10) Status post hemorrhoidectomy ?Z98.890 - Other specified postprocedural states (ICD-10) ?Z87.19 - Personal history of other diseases of the digestive system (ICD-10) History of esophagogastroduodenoscopy (EGD) ?Z98.890 - Other specified postprocedural states (ICD-10) S/P colonoscopy ?Z98.890 - Other specified postprocedural states (ICD-10) Status post appendectomy ?Z90.49 - Acquired absence of other specified parts of digestive tract (ICD- 10) Status post biventricular cardiac pacemaker insertion ?Z95.0 - Presence of cardiac pacemaker (ICD-10) Social History (Updated 09/25/22 @ 17:27 by Luisito Suarez MD) Narrative: . Lives with in assisted living facility. Retired. Designates sonRoldan, as POA for health if needed, cell phone [phone]. Dr. Cárdenas is his PCP. Await decision about resuscitation status. What is your current living situation?: I presently have a place to live Problems where you live: no known problems Problems where you live details: n/a In the past 12 months, utilities in danger of being shut off: no In the past 12 mos, have been you worried that your food would run out before you had money to buy more?: never true In the past 12 mos, the food you bought just didn't last and you didn't have money to buy more?: never true Highest level of school completed/degree received: Master's degree Smoking Status: Former smoker Do you use any of these nicotine containing products: None Second hand tobacco smoke exposure: No How often do you have a drink containing alcohol: never AUDIT-C Alcohol total score: 0 Non-prescribed substance use: denies use Caffeine: Yes (4 cups of coffee/day) How often does anyone, including family, friends and others, physically hurt you : never How often does anyone, including family, friends and others, insult or talk down to you: never How often does anyone, including family, friends and others, threaten you with harm: never How often does anyone, including family, friends and others, scream or curse at you: never service: No Meds Home Medications and Allergies Home Medications Medication Instructions Recorded Confirmed Type amiodarone 200 mg tablet 200 mg PO HS 10/27/21 09/25/22 History carvedilol 3.125 mg tablet 3.125 mg PO Q12H 10/27/21 09/25/22 History eplerenone 25 mg tablet 12.5 mg PO DAILY 10/27/21 09/25/22 History mometasone 50 mcg/actuation nasal 2 spray intranasal DAILY 10/27/21 09/25/22 History spray multivitamin (Daily Multi-Vitamin 1 tab PO DAILY 10/27/21 09/25/22 History tablet) pravastatin 80 mg tablet 80 mg PO HS 10/27/21 09/25/22 History rivastigmine tartrate 1.5 mg 6 mg PO BID 10/27/21 09/25/22 History capsule sertraline 50 mg tablet 50 mg PO Q24H 10/27/21 09/25/22 History tamsulosin 0.4 mg capsule 0.4 mg PO Q24H 10/27/21 09/25/22 History vitamin A-vitamin C-vit E-min 1 tab PO DAILY 10/27/21 09/25/22 History tablet (Ocutabs tablet) Lactobacillus acidophilus 10 10,000 mmu cells PO DAILY 09/25/22 09/25/22 History billion cell capsule (Probacap) calcium carbonate 600 mg calcium 600 mg PO DAILY 09/25/22 09/25/22 History (1,500 mg) tablet (Calcium) cholecalciferol (vitamin D3) 125 5,000 unit PO DAILY 09/25/22 09/25/22 History mcg (5,000 unit) tablet (Vitamin D3) cholecalciferol (vitamin D3) 25 25 mcg PO DAILY 09/25/22 09/25/22 History mcg (1,000 unit) capsule cyanocobalamin (vitamin B-12) 1,000 mcg PO DAILY 09/25/22 09/25/22 History 1,000 mcg capsule metoprolol succinate 25 mg 25 mg PO HS 09/25/22 09/25/22 History tablet,extended release 24 hr polyethylene glycol 3350 17 17 g PO DAILY PRN 09/25/22 09/25/22 History gram/dose oral powder (Miralax) psyllium husk 3.4 gram/5.4 gram 1 tbsp PO BID PRN 09/25/22 09/25/22 History oral powder (Metamucil) rivastigmine tartrate 3 mg capsule 6 mg PO BID 09/25/22 09/25/22 History sacubitril 24 mg-valsartan 26 mg 1 tab PO BID 09/25/22 09/25/22 History tablet (Entresto) vit C 250 mg-vit E 90 mg-zinc 40 1 tab PO DAILY 09/25/22 09/25/22 History mg-copper 1 [id number] capsule (PreserVision AREDS-2) Allergies Allergy/AdvReac Type Severity Reaction Status Date / Time bupropion [From Wellbutrin] Allergy Verified 09/25/22 12:55 Exam Narrative: Exam Narrative: First meet him and examine him in the emergency department. He is laying in a semi recumbent position in the emergency department exam table. Wearing a face mask when I 1st meet him. In the process of the exam he does remove the mask. When still he appears comfortable and in no acute distress. With movement of the right lower extremity he continues to wince. Vision and hearing are grossly adequate. Does have hearing aids bilaterally. Alert and oriented to self, place, situation, and in part to time. Slow to respond to questions. Provides long winded, verbose answers. For the most part he is able to answer the question directly, and small measure he brings up other unrelated matters. Friendly, articulate, cooperative. Mood and affect are congruent. He is able to remove his hearing aids and replace them independently. Tympanic membranes are sclerotic bilaterally. Midline nasal septum. Mallampati class 1 airway. Neck is supple. Midline trachea. No JVD or hepatojugular reflux. No carotid bruits. No head and neck lymphadenopathy. Lungs are clear to auscultation without wheezing, rhonchi, or rales. Chest wall excursions are full. Heart tones with regular rhythm, normal S1-S2. Abdomen with active bowel sounds, soft, nontender. No rebound or guarding. Fairly significant discomfort with attempted movement of right hip. Able to move the left hip and knees and ankle without difficulties. Superficial abrasion on right elbow and hand, covered by dressing. Appears thin and gaunt. Diffuse muscle atrophy of upper and lower extremities. Const: Vital Signs, click to edit/add: Vital Signs - 24 hr 09/25/22 12:59 09/25/22 16:13 09/25/22 17:32 Temperature 98.1 F 98.1 F Pulse Rate [Pulse Oximeter] 69 73 Respiratory Rate 16 17 18 Blood Pressure [Ri ght Upper Arm] 108/72 121/82 Pulse Oximetry 99 90 91 Oxygen Delivery Me thod Room Air Room Air Room Air Hospitalist - H&P: Result Labs Labs: Short CBC 09/25/22 Range/Units 17:07 WBC 8.90 (4.50-11.00) K/uL Hgb 11.4 L (13.5-17.5) gm/dL Hct 35.5 L (37.0-53.0) % Plt Count 120 L (140-440) K/uL BMP 09/25/22 17:07 Sodium 136 Potassium 3.9 Chloride 103 Carbon Dioxide 28 BUN 22 Creatinine 1.0 Glucose 93 Calcium 8.7 ECG Attestation: I personally reviewed and interpreted this ECG as follows: ECG interpretation date: 09/25/22 ECG interpretation time: 15:30 Prior ECG tracings: not available for review Interpretation: AV dual paced rhythm. Imaging X-ray right wrist, elbow, knee: Attestation: I have reviewed the pertinent imaging results. Radiologist's impression: No acute fractures. CT head and cervical spine: Attestation: I have reviewed the pertinent imaging results. Radiologist's impression: No acute abnormalities noted. X-ray right hip: Attestation: I have reviewed the pertinent imaging results. Radiologist's impression: No obvious fractures. CT scan - pelvis: Attestation: I have reviewed the pertinent imaging results. Radiologist's impression: FINDINGS: Acute mildly impacted subcapital right proximal femur fracture. [id number] bilateral hip degenerative arthrosis. Bones are demineralized. Diffuse mild bladder wall thickening can be seen with chronic outlet obstruction or cystitis. Fat containing left inguinal hernia. IMPRESSION: Acute subcapital right proximal femur fracture. Assessment and Plan Assessment and plan (1) Closed subcapital fracture of right femur: Status: Acute (2) Fall: Status: Acute (3) Functional gait abnormality: Problem comment: Uses 4 WW with seat. History of multiple falls. Status: Acute (4) Dementia: Problem comment: Presumably Lewy Body type, with behavioral disturbance. Follows with [facility], [place], [place]. Status: Acute (5) Benign prostatic hyperplasia with lower urinary tract symptoms: Problem comment: Previously on tamsulosin, which was discontinued about in mid-August 2022 due to symptomatic orthostatic hypotension with resolution of orthostasis and falls associated with the same. CT scan of pelvis on 09/25/2022: FINDINGS: Acute mildly impacted subcapital right proximal femur fracture. [id number] bilateral hip degenerative arthrosis. Bones are demineralized. Diffuse mild bladder wall thickening can be seen with chronic outlet obstruction or cystitis. Fat containing left inguinal hernia. Status: Acute (6) Sensorineural hearing loss (SNHL), bilateral: Problem comment: Utilizes bilateral hearing aids. Status: Acute Plan 1. Reviewed impression with patient and his son, Roldan, who is with him. 2. The emergency department physician spoke with the orthopedic surgery staff, Flavia, who indicates the patient will be seen by the orthopedic surgeon tomorrow morning and possibly proceed with OR repair of the fracture if warranted and agreeable by patient and family. Patient and son are agreeable to this. 3. NPO after midnight. IV fluids after midnight. Will initiate Zaragoza catheter at this time as well. 4. Continue with other supportive efforts. 5. Patient's son, Roldan, will find a copy of the patient's POLST so that we can no with the patient's desire is full resuscitation status. At this time were not certain, including the patient. 6. Physical therapy, occupational therapy, and manager social services consultation. 7. Patient and his son would like, if possible and safe, to return home after it is deemed that he can be discharged from the hospital. They are willing to go to a halfway facility transitional care unit if needed. 8. Analgesics, antiemetics as needed. 9. Patient and son, Roldan, are agreeable to above stated plans and recommendations.
[2022-09-25] MEDS: PRAVASTATIN SODIUM 20 MG TABLET 80 MG PO (21:35)
[2022-09-25] MEDS: METOPROLOL SUCCINATE (XL) 25 MG TAB PO (21:35)
[2022-09-25] MEDS: ACETAMINOPHEN 325 MG TABLET 650 MG PO (21:35)
[2022-09-25] MEDS: AMIODARONE 200 MG TABLET PO (21:35)
[2022-09-25] MEDS: MELATONIN 3 MG TABLET PO (21:35)
[2022-09-25] MEDS: SENNOSIDES/DOCUSATE TABLET 1 TAB PO (21:35)
[2022-09-25] MEDS: SODIUM CHLORIDE 0.9 % (FLUSH) 10 ML SYRINGE 5 ML IVF ×2 (21:36→23:37)
[2022-09-25 23:20] VITALS: BP 89/60; PULSE 70; RESP 18; TEMP 36.7; O2SAT 91
[2022-09-25] MEDS: 0.9 % SODIUM CHLORIDE 1000 ml 1,000 ML 75 ML IV (23:36)
[2022-09-26] VITALS (24 sets, daily range): BP systolic 87–115; BP diastolic 59–102; PULSE 69–76; RESP 12–18; TEMP 35.7–36.9; O2SAT 90–97
--- NOTE | 2022-09-26 06:06 | PC.NURSE ---
Shift note: Pt denies pain throughout the night, BP low 91/61, no urine output during this shift, bladder scan showed 25ml. William was contacted and notified of findings, no new orders, for RN to monitor if pt is symptomatic with low BP.
[2022-09-26 06:47] LABS: HCO3 VBG 25 mmol/L (21-28); PCO2 VBG 39 mmHG (40-50); pH VBG 7.421 (7.32-7.43)
[2022-09-26 06:59] LABS: Hematocrit 32.9 % (37.0-53.0); Hemoglobin* 10.8 gm/dL (13.5-17.5); Mean Corpuscular HGB Conc 33 gm/dL (32-36); Mean Corpuscular Hemoglobin 32 pg (26-34); Mean Corpuscular Volume 97 fL (80-100); Platelet Count* 119 K/uL (140-440); Red Blood Count 3.38 m/uL (4.30-5.90); White Blood Count* 8.12 K/uL (4.50-11.00)
[2022-09-26 07:18] LABS: Slide Review Reflex No
[2022-09-26 07:24] LABS: Chloride* 105 mmol/L (96-114); Potassium* 4.1 mmol/L (3.6-5.1); Sodium* 133 mmol/L (135-149)
[2022-09-26 07:27] LABS: Blood Urea Nitrogen* 26 mg/dL (7-30); Carbon Dioxide* 25 mmol/L (20-32); Creatinine* 1.2 mg/dL (0.5-1.5); Est. Creatinine Clearance* 45.73; Estimated Glomerular Filt Rate 59 ml/min
[2022-09-26 07:28] LABS: Calcium* 8.1 mg/dL (8.4-10.6); Glucose* 96 mg/dL (60-115); Magnesium* 2.1 mg/dL (1.5-2.6); Phosphorus* 3.6 mg/dL (2.5-4.5)
[2022-09-26 07:30] LABS: C Reactive Protein* 2.9 mg/dL (0.5-1.0)
[2022-09-26] MEDS: LACTATED RINGERS 1000 ML 1,000 ML 125 ML IV (08:54)
[2022-09-26] MEDS: LACTOBACILLUS ACIDOPHILUS 1 TABLET 1 TAB PO (09:27)
[2022-09-26] MEDS: ACETAMINOPHEN 325 MG TABLET 650 MG PO ×3 (09:27→20:44)
[2022-09-26] MEDS: SENNOSIDES/DOCUSATE TABLET 1 TAB PO ×2 (09:27→20:40)
[2022-09-26] MEDS: RIVASTIGMINE TARTRATE 1.5 MG CAPSULE 6 MG PO ×2 (09:28→20:43)
--- NOTE | 2022-09-26 09:30 | CRLHL7_ITS ---
For Patients: As a result of the Cures Act, medical imaging exams and procedure reports are released immediately into your electronic medical record. You may view this report before your referring provider. If you have questions, please contact your health care provider. Indication: RIGHT FEMORAL NECK FX Technique: Two fluoroscopic images of the right hip. Fluoroscopic time 30.3 seconds. IMPRESSION: Fluoroscopic guidance for open reduction internal fixation right femoral neck fracture. Dictated by Prosper Martinez MD @ 09/26/2022 1:06:11 PM (Electronically Signed)
--- NOTE | 2022-09-26 09:52 | P.ORCN_ITS ---
History of Present Illness HPI Date Seen: 09/26/22 Consult date: 09/26/22 Requesting physician: Luisito Suarez Chief complaint: fall, right hip pain Narrative: Param is an 87-year-old male with past medical history significant for cardiomy opathy and dementia. He presented to the emergency room yesterday afternoon after losing his balance, falling in his driveway and landing on his right side yesterday morning. Following the injury he was able to bear weight but continued to have hip pain for which she went to the emergency room for further evaluation. He was subsequent diagnosed with a nondisplaced, subcapital right femoral neck fracture. This morning, patient continues to experience pain if he tries to move his hip has no pain at rest. He denies any other injuries. Prior to the injury, patient lived at home with his . He used a walker for assistance with ambulation outside his home. [facility] Medical History (Updated 09/26/22 @ 09:59 by Darryl Rico MD) Recurrent falls ?R29.6 - Repeated falls (ICD-10) Major depressive disorder in partial remission ?F32.4 - Major depressive disorder, single episode, in partial remission (ICD-10) Heart failure with reduced ejection fraction ?I50.20 - Unspecified systolic (congestive) heart failure (ICD-10) Obstructive sleep apnea on CPAP ?G47.33 - Obstructive sleep apnea (adult) (pediatric) (ICD-10) ICD (implantable cardioverter-defibrillator) in place ?Z95.810 - Presence of automatic (implantable) cardiac defibrillator (ICD-10) Paroxysmal atrial fibrillation ?I48.0 - Paroxysmal atrial fibrillation (ICD-10) Prolonged QT interval ?R94.31 - Abnormal electrocardiogram [ECG] [EKG] (ICD-10) Thrombocytopenia ?D69.6 - Thrombocytopenia, unspecified (ICD-10) Thoracic aortic aneurysm, without rupture, unspecified ?I71.20 - Thoracic aortic aneurysm, without rupture, unspecified (ICD-10) Nonischemic dilated cardiomyopathy ?I42.0 - Dilated cardiomyopathy (ICD-10) Left bundle branch block (LBBB) ?I44.7 - Left bundle-branch block, unspecified (ICD-10) Orthostasis ?I95.1 - Orthostatic hypotension (ICD-10) Benign prostatic hyperplasia with lower urinary tract symptoms ?N40.1 - Benign prostatic hyperplasia with lower urinary tract symptoms (ICD- 10) Mixed hyperlipidemia ?E78.2 - Mixed hyperlipidemia (ICD-10) Sensorineural hearing loss (SNHL), bilateral ?H90.3 - Sensorineural hearing loss, bilateral (ICD-10) Adjustment disorder with mixed anxiety and depressed mood ?F43.23 - Adjustment disorder with mixed anxiety and depressed mood (ICD-10) 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.0 - Latent syphilis, unspecified as early or late (ICD-10) Idiopathic peripheral neuropathy ?G60.9 - Hereditary and idiopathic neuropathy, unspecified (ICD-10) Essential hypertension ?I10 - Essential (primary) hypertension (ICD-10) Functional gait abnormality ?R26.89 - Other abnormalities of gait and mobility (ICD-10) Pacemaker ?Z95.0 - Presence of cardiac pacemaker (ICD-10) Cardiac abnormality ?Q24.9 - Congenital malformation of heart, unspecified (ICD-10) Dementia ?F03.90 - Unspecified dementia without behavioral disturbance (ICD-10) Surgical History (Updated 09/25/22 @ 17:25 by Luisito Suarez MD) Status post cataract surgery ?Z98.49 - Cataract extraction status, unspecified eye (ICD-10) Status post hemorrhoidectomy ?Z98.890 - Other specified postprocedural states (ICD-10) ?Z87.19 - Personal history of other diseases of the digestive system (ICD-10) History of esophagogastroduodenoscopy (EGD) ?Z98.890 - Other specified postprocedural states (ICD-10) S/P colonoscopy ?Z98.890 - Other specified postprocedural states (ICD-10) Status post appendectomy ?Z90.49 - Acquired absence of other specified parts of digestive tract (ICD- 10) Status post biventricular cardiac pacemaker insertion ?Z95.0 - Presence of cardiac pacemaker (ICD-10) Social History (Updated 09/25/22 @ 17:27 by Luisito Suarez MD) Narrative: . Lives with in assisted living facility. Retired. Designates sonRoldan, as POA for health if needed, cell phone [phone]. Dr. Cárdenas is his PCP. Await decision about resuscitation status. What is your current living situation?: I presently have a place to live Problems where you live: no known problems Problems where you live details: n/a In the past 12 months, utilities in danger of being shut off: no In the past 12 mos, have been you worried that your food would run out before you had money to buy more?: never true In the past 12 mos, the food you bought just didn't last and you didn't have money to buy more?: never true Highest level of school completed/degree received: Master's degree Smoking Status: Former smoker Do you use any of these nicotine containing products: None Second hand tobacco smoke exposure: No How often do you have a drink containing alcohol: never AUDIT-C Alcohol total score: 0 Non-prescribed substance use: denies use Caffeine: Yes (4 cups of coffee/day) How often does anyone, including family, friends and others, physically hurt you : never How often does anyone, including family, friends and others, insult or talk down to you: never How often does anyone, including family, friends and others, threaten you with harm: never How often does anyone, including family, friends and others, scream or curse at you: never service: No Meds Home Medications and Allergies Home Medications Medication Instructions Recorded Confirmed Type amiodarone 200 mg tablet 200 mg PO HS 10/27/21 09/25/22 History carvedilol 3.125 mg tablet 3.125 mg PO Q12H 10/27/21 09/25/22 History eplerenone 25 mg tablet 12.5 mg PO DAILY 10/27/21 09/25/22 History mometasone 50 mcg/actuation nasal 2 spray intranasal DAILY 10/27/21 09/25/22 History spray multivitamin (Daily Multi-Vitamin 1 tab PO DAILY 10/27/21 09/25/22 History tablet) pravastatin 80 mg tablet 80 mg PO HS 10/27/21 09/25/22 History rivastigmine tartrate 1.5 mg 6 mg PO BID 10/27/21 09/25/22 History capsule sertraline 50 mg tablet 50 mg PO Q24H 10/27/21 09/25/22 History tamsulosin 0.4 mg capsule 0.4 mg PO Q24H 10/27/21 09/25/22 History vitamin A-vitamin C-vit E-min 1 tab PO DAILY 10/27/21 09/25/22 History tablet (Ocutabs tablet) Lactobacillus acidophilus 10 10,000 mmu cells PO DAILY 09/25/22 09/25/22 History billion cell capsule (Probacap) calcium carbonate 600 mg calcium 600 mg PO DAILY 09/25/22 09/25/22 History (1,500 mg) tablet (Calcium) cholecalciferol (vitamin D3) 125 5,000 unit PO DAILY 09/25/22 09/25/22 History mcg (5,000 unit) tablet (Vitamin D3) cholecalciferol (vitamin D3) 25 25 mcg PO DAILY 09/25/22 09/25/22 History mcg (1,000 unit) capsule cyanocobalamin (vitamin B-12) 1,000 mcg PO DAILY 09/25/22 09/25/22 History 1,000 mcg capsule metoprolol succinate 25 mg 25 mg PO HS 09/25/22 09/25/22 History tablet,extended release 24 hr polyethylene glycol 3350 17 17 g PO DAILY PRN 09/25/22 09/25/22 History gram/dose oral powder (Miralax) psyllium husk 3.4 gram/5.4 gram 1 tbsp PO BID PRN 09/25/22 09/25/22 History oral powder (Metamucil) rivastigmine tartrate 3 mg capsule 6 mg PO BID 09/25/22 09/25/22 History sacubitril 24 mg-valsartan 26 mg 1 tab PO BID 09/25/22 09/25/22 History tablet (Entresto) vit C 250 mg-vit E 90 mg-zinc 40 1 tab PO DAILY 09/25/22 09/25/22 History mg-copper 1 [id number]-vjndty capsule (PreserVision AREDS-2) Allergies Allergy/AdvReac Type Severity Reaction Status Date / Time bupropion [From Wellbutrin] Allergy Verified 09/25/22 12:55 Ortho Exam Narrative Exam Narrative: Right hip and lower extremity were examined. Sensation was intact to light touch all dermatomes distally. EHL, tibialis anterior, gastrocnemius soleus are intact. Foot was warm and well perfused with intact DP and PT pulses. Right hip and groin pain is reproduced with attempted passive hip flexion. Const Vital Signs, click to edit/add: Vital Signs - 24 hr 09/25/22 12:59 09/25/22 16:13 09/25/22 17:32 Temperature 98.1 F 98.1 F Pulse Rate [Pulse Oximeter] 69 73 Respiratory Rate 16 17 18 Blood Pressure [Left Radial Artery] Blood Pressure [Right Upper Arm] 108/72 121/82 Pulse Oximetry 99 90 91 Oxygen Delivery Method Room Air Room Air Room Air 09/25/22 17:32 09/25/22 23:20 09/25/22 23:20 Temperature Pulse Rate [Pulse Oximeter] Respiratory Rate 18 18 18 Blood Pressure [Left Radial Artery] Blood Pressure [Right Upper Arm] Pulse Oximetry 91 91 Oxygen Delivery Method Room Air Room Air 09/25/22 23:20 09/26/22 03:00 09/26/22 07:30 Temperature 98.1 F 98.5 F 98.3 F Pulse Rate [Pulse Oximeter] 70 72 70 Respiratory Rate 18 18 16 Blood Pressure [Left Radial Artery] 89/60 L 91/61 108/68 Blood Pressure [Right Upper Arm] Pulse Oximetry 91 92 93 Oxygen Delivery Method Room Air Room Air Room Air 09/26/22 07:30 09/26/22 07:30 Temperature Pulse Rate [Pulse Oximeter] 70 Respiratory Rate 16 16 Blood Pressure [Left Radial Artery] Blood Pressure [Right Upper Arm] Pulse Oximetry 93 Oxygen Delivery Method Room Air Common normals: no apparent distress and alert; negative for oriented x3 (Oriented to name but not to date or place.) Neuro Common normals: not oriented x3 (Oriented to name but not to date or place.) Sensorium/orientation: alert Results Labs Labs: Laboratory Results - last 48 hr 09/25/22 09/26/22 17:07 06:18 WBC 8.90 8.12 RBC 3.61 L 3.38 L Hgb 11.4 L 10.8 L Hct 35.5 L 32.9 L MCV 98 97 MCH 32 32 MCHC 32 33 RDW Coeff of Claudia 13.7 Plt Count 120 L 119 L Neut % (Auto) 81.1 H Lymph % (Auto) 9.4 L [place] % (Auto) 8.5 Eos % (Auto) 0.7 Baso % (Auto) 0.1 Neut # (Auto) 7.20 H Lymph # (Auto) 0.80 L [place] # (Auto) 0.80 Eos # (Auto) 0.06 Baso # (Auto) 0.01 Abs Immat Gran (auto) 0.02 Imm/Tot Granulo (auto) 0.2 VBG pH 7.421 VBG pCO2 39 L VBG pO2 133.0 H VBG HCO3 25 Sodium 136 133 L Potassium 3.9 4.1 Chloride 103 105 Carbon Dioxide 28 25 BUN 22 26 Creatinine 1.0 1.2 Estimated Creat Clear 57.15 45.73 Estimated GFR 73 59 Glucose 93 96 Lactate 1.0 Calcium 8.7 8.1 L Phosphorus 3.6 Magnesium 2.1 C-Reactive Protein 2.9 H TSH 18.300 H Diagnostic results Additional Comments: X-rays of the pelvis and right hip and CT scan of the pelvis were reviewed. These demonstrated a nondisplaced subcapital femoral neck fracture with slight valgus impaction. X-rays of right elbow, wrist, knee revealed no fractures or dislocations. Assessment and Plan Assessment and plan (1) Closed subcapital fracture of right femur: Problem comment: Closed, nondisplaced, mildly impacted subcapital femoral neck fracture Status: Acute Assessment and Plan: Patient has a displaced femoral neck fracture. Operative and non operative treatment options were discussed with the patient, his daughter, and his son. Recommendation was made for surgical intervention consisting of right hip surgical stabilization to allow for anatomic fracture healing and early weight- bearing. Risks of surgery to include infection, neurovascular injury, malunion, nonunion, failure of hardware, need for further surgery, heart attack, stroke, and even were discussed and all questions were answered. After discussion informed consent was obtained to proceed with surgery, which will take place later today. Patient has been seen by hospital staff and has been medically optimized for surgery. He is to remain NPO until after surgery. Ortho VTE Risk Stratification Major Personal history of VTE: no Active malignancy: no Known hypercoagulable state (Factor V leiden, protein C): no Minor Family history (immediate family member) of VTE: no Obesity (BMI>30): no Age >60: Yes Lung disease ? Active Smoker: No Cardiovascular disease: NO ? Atrial fibrillation ? Hx of myocardial infarction ? Hx of CABG or stent ? Severe peripheral vascular disease (s/p previous vascular surgery) ? History of stroke Diabetes Mellitus (poorly controlled, A1C > 8): no control/hormone replacement therapy: no Prolonged immobilization: no One or more major risk factor ? high risk 3 or more minor risk factors ? high risk 0-2 minor risk factors ? low risk Low risk procedure (hand/upper extremity/lower extremity without weightbearing restriction) TKA/JORDAN/Hip Fracture or other high-risk procedure (Lower extremity with weight bearing restriction/polytrauma/etc) Low risk patient ? 0 MAJOR risk factors ? 0-2 MINOR risk factors ? low risk patient ? No pharmacological prophylaxis required ? ASA 81 mg/325mg PO BID x 35 days (with gastric protection) ? Or ?High risk patient? options High risk patient ? One or more MAJOR risk factors ? 3 or more MINOR risk factors ? ASA 81 mg/325mg PO BID x 35 days (with gastric protection) ? Or below choices: ? Lovenox 40 mg SQ/day x 35 d ? Consider UFH for renal failure ? Consider alternative dosing for morbid obesity ? Coumadin, goal 1.8-2.2 x 35 d ? Eliquis (apixaban) 2.5 mg PO BID x 35 d ? Xarelto (rivaroxaban) 10 mg PO qday x 35 d ? Lovenox 40 mg SQ/day x 35 d ? Consider UFH for renal failure ? Consider alternative dosing for morbid obesity ? Coumadin, goal 1.8-2.2 x 35 d ? Eliquis (apixaban) 2.5 mg PO BID x 35 d ? Xarelto (rivaroxaban) 10 mg PO qday x 35 d The patient has 0 major and 1 minor risk factor, therefore will plan for aspirin 81 mg b.i.d. for 35 days postoperatively for DVT prophylaxis. Total time spent: Total time spent is greater than 50% in coordination of care (as documented) at patient's floor/unit and/or counseling patient: (2) Fall: Status: Acute Total time spent: Total time spent is greater than 50% in coordination of care (as documented) at patient's floor/unit and/or counseling patient: (3) Functional gait abnormality: Problem comment: Uses 4 WW with seat. History of multiple falls. Status: Acute Total time spent: Total time spent is greater than 50% in coordination of care (as documented) at patient's floor/unit and/or counseling patient: (4) Dementia: Problem comment: Presumably Lewy Body type, with behavioral disturbance. Follows with [facility] [place], [place]. Status: Acute Total time spent: Total time spent is greater than 50% in coordination of care (as documented) at patient's floor/unit and/or counseling patient: (5) Benign prostatic hyperplasia with lower urinary tract symptoms: Problem comment: Previously on tamsulosin, which was discontinued about in mid-August 2022 due to symptomatic orthostatic hypotension with resolution of orthostasis and falls associated with the same. CT scan of pelvis on 09/25/2022: FINDINGS: Acute mildly impacted subcapital right proximal femur fracture. [id number]-[id number] bilateral hip degenerative arthrosis. Bones are demineralized. Diffuse mild bladder wall thickening can be seen with chronic outlet obstruction or cystitis. Fat containing left inguinal hernia. Status: Acute Total time spent: Total time spent is greater than 50% in coordination of care (as documented) at patient's floor/unit and/or counseling patient: (6) Sensorineural hearing loss (SNHL), bilateral: Problem comment: Utilizes bilateral hearing aids. Status: Acute Total time spent: Total time spent is greater than 50% in coordination of care (as documented) at patient's floor/unit and/or counseling patient:
--- NOTE | 2022-09-26 10:12 | PM.ORPRC ---
Procedure Note Date of procedure: 09/26/22 Procedure: PREOPERATIVE DIAGNOSES: 1. Right subcapital femoral neck fracture, closed, nondisplaced POSTOPERATIVE DIAGNOSES: 1. Right subcapital femoral neck fracture, closed, nondisplaced PROCEDURE: 1. Right femoral neck fracture fixation with internal fixation 2. 71730 - Intraoperative fluoroscopy up to 1 hour SURGEON: Samuel Rico MD OFFSET LITHOGRAPHIC PRESS SETTER: Mckenna Walter P.A.-C. Assistance was medically necessary in order to safely perform the procedure without increased blood loss or morbidity. Assistance was provided through positioning, instrumentation, and retraction of incisions for better visualization of underlying structures and cauterization for hemostasis. Assistance was also provided through wound closure, instillation of anesthetic, application of sterile dressing, and safe transport from the operative suite. ANESTHESIA: Spinal IMPLANTS: Synthes femoral neck system plate 1 hole with 90 mm femoral neck system bolt, 90 mm antirotation screw, and 5 mm x 42 mm locking screw EBL: 50 ml COMPLICATIONS: None evident INDICATIONS: Param is a 87-year-old male who sustained a ground level fall yesterday. He subsequently developed right hip pain and had difficulty bearing weight. After presenting to the [facility], he was diagnosed with a nondisplaced femoral neck fracture. Surgical stabilization of this fracture is recommended to allow for early mobilization and advancement of weight-bearing, decreased pain, and healing of the fracture. Prior to procedure, risks and benefits of the operative and non operative treatment were discussed with the patient, his son, and his daughter. After discussion of risks, benefits, and alternatives of surgery informed consent was obtained and the right hip was marked. FINDINGS: Nondisplaced subcapital femoral neck fracture PROCEDURE: Patient was brought to the operating room, where spinal anesthesia was administered by the anesthesia staff. 1 g IV Ancef was administered within 1 hr incision preoperatively. The patient was positioned on the [place] table. A padded perineal post was placed and all bone prominences were well padded. Right hip and lower extremity were prepped and draped in usual sterile fashion. A surgical time-out was performed confirming patient identity, surgical site, and surgical procedure. C-arm fluoroscopic imaging was utilized to obtain AP and lateral views of the right hip, confirming that the fracture remained nondisplaced. A skin incision was then made over the lateral aspect of the hip in line with the femoral neck axis, which measured approximately 6 cm in length. Deep fascial layer was incised in line with the skin incision and blunt dissection was used to dissect down to bone. Using the 130 degree angle guide, a guidewire was placed into the center center position in the subchondral bone of the femoral head on both AP and lateral images. Once the guidewire was confirmed to be in correct position, depth was measured and decision was made to proceed with a 90 mm implant. The opening drill bit and Reamer was then used ream over the guidewire to the correct depth. The femoral neck system implant was then inserted over the guidewire and tapped down until the plate was flush with the lateral aspect of the femur. Guidewire was then removed. The hole for the locking screw was then drilled through the plate and the correct length 5.0 mm locking screw was inserted and secured into position. Next the hole for the anti rotation screw was drilled, and antirotation screw secured into position. Guides were removed and final fluoroscopic images were obtained which confirmed the fracture reduction and correct placement of the femoral neck implant system. Wound was then irrigated with normal saline. The deep fascial layer was closed with 0 Vicryl and subcutaneous layer was closed with 2-0 Vicryl and 4-0 Stratafix. Sterile dressing was applied. Patient was awoken from anesthesia and transferred to the PACU in stable condition. PLAN: 1. Patient will be readmitted to the hospitalist service for perioperative medical management. 2. Mobilize with physical therapy and occupational therapy. - Weight bear as tolerated right lower extremity. 3. Pain control: - Acetaminophen and Oxycodone for pain as needed. -IV pain medications for breakthrough pain - encourage ice 4. Postoperative prophylactic antibiotics x2 doses 5. DVT prophylaxis: - aspirin 81 mg b.i.d. for 35 days - Wilson Rodriguez 6. Follow-up in Orthopedic Clinic in 1-2 weeks. Surgeon: Darryl Rico Calender Machine Operator Helper: Mckenna Walter
--- NOTE | 2022-09-26 10:49 | W.ANESCHARGE ---
Anesthesia Charges Start Date/Time Anesthesia Start Date: 09/26/22 Anesthesia Start Time: 10:22 Stop Date/Time Anesthesia Stop Date: 09/26/22 Anesthesia Stop Time: 12:23 Summary Extremes of Age - Over 70 or under 1: MDA
[2022-09-26] MEDS: CEFAZOLIN 1 GM inj IVP (10:50)
--- NOTE | 2022-09-26 10:50 | W.PM.NB ---
Nerve Block Nerve Block Time Seen by Provider: 10:36 Date Seen: 09/26/22 Type of block requested by surgeon for post-operative analgesia: NIDIA/LFCN Side: right Time out performed: Yes Verification of patient name: Yes Verification of date of : Yes Site marking: site marked Name of person performing procedure: Dominik Continuous monitoring Was continuous monitoring of O2 sat, B/P, product support specialist, recorded every 15 minutes?: Yes Procedure Checklist: sterile prep, needles and gloves Ultrasound guided. Images saved: Yes Medications given in 5ml increments after negative aspiration: Ropivicaine %: 0.5 mL: 30 Needle gauge: 20 Decadron (mg): 10 Precedex (mcg): 25 Patient tolerated procedure well: Yes Additional comments: Needle noted below psoas tendon needle noted adjacent to LFCN Block Charges Block Charge (with Pro Fee): Other Periph Nerve Block Use of Ultrasound Machine for Block: Yes- US Guidance/pain block
[2022-09-26] MEDS: BUPIVACAINE 0.5% 30 ML INJECTION (11:45)
--- NOTE | 2022-09-26 12:27 | W.ANESCHARGE ---
Anesthesia Charges Start Date/Time Anesthesia Start Date: 09/26/22 Anesthesia Start Time: 10:22 Stop Date/Time Anesthesia Stop Date: 09/26/22 Anesthesia Stop Time: 12:23
--- NOTE | 2022-09-26 12:53 | SUR.OPER ---
Attempts were made on med surg to place alonso and they were unsuccessful. Alonso placed under anesthesia per Dr. Dalal's request. Difficult insertion, one attempt, 16 fr coude tip used. Balloon filled but no return urine present. Decided to leave catheter to see if urine made throughout short case. No urine present at the end. Bladder scan done with alonso catheter in. Approximately 250cc present on scan. Alonso removed and one more attempt made to insert catheter. Alonso replaced and bright red blood present as urine return. Balloon filled and alonso left in place. Little to no urine present in tubing. Dr. Dalal (hospitalist) contacted and situation relayed. He stated they will follow up with catheter when patient arrived back to the floor.
--- NOTE | 2022-09-26 12:56 | PM.IMPN1 ---
Progress Note: A&P Assessment and plan (1) Closed subcapital fracture of right femur: Problem details: Closed, nondisplaced, mildly impacted subcapital femoral neck fracture status post ORIF with Dr. Rico 09/26/2022. Status: Acute (2) Functional gait abnormality: Problem details: Uses 4 WW with seat. History of multiple falls. PT to evaluate and treat Status: Acute (3) Dementia: Problem details: Presumably Lewy Body type, with behavioral disturbance. Follows with [facility], [place], [place]. Status: Acute (4) Benign prostatic hyperplasia with lower urinary tract symptoms: Problem details: Previously on tamsulosin, which was discontinued about in mid-August 2022 due to symptomatic orthostatic hypotension with resolution of orthostasis and falls associated with the same. CT scan of pelvis on 09/25/2022: FINDINGS: Acute mildly impacted subcapital right proximal femur fracture. [id number] bilateral hip degenerative arthrosis. Bones are demineralized. Diffuse mild bladder wall thickening can be seen with chronic outlet obstruction or cystitis. Fat containing left inguinal hernia. Status: Acute (5) Sensorineural hearing loss (SNHL), bilateral: Problem details: Utilizes bilateral hearing aids. Status: Acute (6) Obstructive sleep apnea on CPAP: Status: Acute (7) Pacemaker: Status: Acute (8) Heart failure with reduced ejection fraction: Problem details: Echocardiogram 08/22/2022 shows normal LV size with globally reduced ejection fraction of 30-35% Status: Acute (9) Urinary retention: Problem details: History of urinary retention secondary to BPH. Was on tamsulosin which was discontinued 2 weeks ago due to low blood pressure and frequent falls. Status: Acute (10) Urinary catheter complication: Problem details: Zaragoza catheter placed short of getting into the bladder. Caused hematuria. Status: Acute Plan Patient is hospitalized for hip fracture surgery, recovery and rehabilitation and management of complications. Anticipate routine pain management and therapy. Monitor urine output and bladder scan b.i.d. and as needed for concerns of bladder outlet obstruction. Monitor hematuria from traumatic Zaragoza placement. Anticipate discharge to [facility]. Time Spent With Patient Total time spent: Total time spent today is 60 minutes, 40 minutes in coordination of care discussing with patient and family and other providers management of postoperative care, Zaragoza catheter trauma and bladder outlet obstruction Subjective Date Seen: 09/26/22 Interval history: 87-year-old male seen in followup of hospital admission after a fall at home with a right subcapital femoral neck fracture. This occurred with an accidental fall at home which apparently did not have any other injuries. He denies any loss of consciousness. Patient has dementia and is unable to give much detailed history. This morning he reports only hip pain and no other significant concerns. Overnight the nursing staff were unable to place a Zaragoza catheter. They were able to place a catheter in the OR but did not have any urine return. Exam Narrative: Exam Narrative: He is alert and appears in no distress. He is oriented to being in the hospital and recalls having a fall yesterday. Head is without obvious trauma. Eyes normal. Oropharynx normal. Neck is supple without mass or adenopathy. Respirations are clear to auscultation. Cardiovascular: S1, S2, relatively regular rhythm. Abdomen is soft without tenderness or mass. No obvious deformity or trauma to the hips or pelvis. He has intact pulses and good flexion extension in his ankle bilaterally. Const: Vital Signs, click to edit/add: Vital Signs - 24 hr 09/25/22 12:59 09/25/22 16:13 09/25/22 17:32 Temperature 98.1 F 98.1 F Pulse Rate Pulse Rate [Pulse Oximeter] 69 73 Respiratory Rate 16 17 18 Blood Pressure Blood Pressure [Le ft Radial Artery] Blood Pressure [Ri ght Upper Arm] 108/72 121/82 Pulse Oximetry 99 90 91 Oxygen Delivery Me thod Room Air Room Air Room Air Oxygen Flow Rate 09/25/22 17:32 09/25/22 23:20 09/25/22 23:20 Temperature Pulse Rate Pulse Rate [Pulse Oximeter] Respiratory Rate 18 18 18 Blood Pressure Blood Pressure [Le ft Radial Artery] Blood Pressure [Ri ght Upper Arm] Pulse Oximetry 91 91 Oxygen Delivery Me thod Room Air Room Air Oxygen Flow Rate 09/25/22 23:20 09/26/22 03:00 09/26/22 07:30 Temperature 98.1 F 98.5 F 98.3 F Pulse Rate Pulse Rate [Pulse Oximeter] 70 72 70 Respiratory Rate 18 18 16 Blood Pressure Blood Pressure [Le ft Radial Artery] 89/60 L 91/61 108/68 Blood Pressure [Ri ght Upper Arm] Pulse Oximetry 91 92 93 Oxygen Delivery Me thod Room Air Room Air Room Air Oxygen Flow Rate 09/26/22 07:30 09/26/22 07:30 09/26/22 12:18 Temperature 98.3 F Pulse Rate 70 Pulse Rate [Pulse Oximeter] 70 Respiratory Rate 16 16 14 Blood Pressure 100/63 Blood Pressure [Le ft Radial Artery] Blood Pressure [Ri ght Upper Arm] Pulse Oximetry 93 97 Oxygen Delivery Me thod Room Air Room Air Oxygen Flow Rate 09/26/22 12:25 09/26/22 12:30 09/26/22 12:35 Temperature Pulse Rate 71 71 70 Pulse Rate [Pulse Oximeter] Respiratory Rate 17 16 15 Blood Pressure 87/59 L 91/59 L 92/62 Blood Pressure [Le ft Radial Artery] Blood Pressure [Ri ght Upper Arm] Pulse Oximetry 95 93 95 Oxygen Delivery Me thod Nasal Cannula Oxygen Flow Rate 2 09/26/22 12:40 09/26/22 12:45 09/26/22 12:48 Temperature 97.1 F L Pulse Rate 70 70 71 Pulse Rate [Pulse Oximeter] Respiratory Rate 12 16 17 Blood Pressure 95/63 94/62 94/63 Blood Pressure [Le ft Radial Artery] Blood Pressure [Ri ght Upper Arm] Pulse Oximetry 97 97 97 Oxygen Delivery Me thod Nasal Cannula Oxygen Flow Rate 2 Documenting provider has reviewed patient's vital signs: yes Labs Labs: Laboratory Results - last 24 hr 09/25/22 09/26/22 17:07 06:18 WBC 8.90 8.12 RBC 3.61 L 3.38 L Hgb 11.4 L 10.8 L Hct 35.5 L 32.9 L MCV 98 97 MCH 32 32 MCHC 32 33 RDW Coeff of Claudia 13.7 Plt Count 120 L 119 L Neut % (Auto) 81.1 H Lymph % (Auto) 9.4 L [place] % (Auto) 8.5 Eos % (Auto) 0.7 Baso % (Auto) 0.1 Neut # (Auto) 7.20 H Lymph # (Auto) 0.80 L [place] # (Auto) 0.80 Eos # (Auto) 0.06 Baso # (Auto) 0.01 Abs Immat Gran (auto) 0.02 Imm/Tot Granulo (auto) 0.2 VBG pH 7.421 VBG pCO2 39 L VBG pO2 133.0 H VBG HCO3 25 Sodium 136 133 L Potassium 3.9 4.1 Chloride 103 105 Carbon Dioxide 28 25 BUN 22 26 Creatinine 1.0 1.2 Estimated Creat Clear 57.15 45.73 Estimated GFR 73 59 Glucose 93 96 Lactate 1.0 Calcium 8.7 8.1 L Phosphorus 3.6 Magnesium 2.1 C-Reactive Protein 2.9 H TSH 18.300 H
[2022-09-26] MEDS: OXYCODONE 5 MG TABLET PO (15:04)
--- NOTE | 2022-09-26 17:00 | CRLHL7_ITS ---
For Patients: As a result of the Century Cures Act, medical imaging exams and procedure reports are released immediately into your electronic medical record. You may view this report before your referring provider. If you have questions, please contact your health care provider. Indication: MISPLACED CONSTANTINO CATHETER Technique: Grayscale ultrasound of the bladder performed. Comparison: CT 09/25/2022 Findings: Constantino catheter is not located within the bladder. The bladder volume is 325 cc. A catheter like device appears to be located cephalad to the bladder. Impression: Constantino catheter appears separate from the bladder. CT recommended for clarification. Dictated by Prosper Martinez MD @ 09/26/2022 3:35:34 PM (Electronically Signed)
[2022-09-26] MEDS: CEFAZOLIN 1 GM in 0.9 % SODIUM CHLORIDE Mini-bag 100 ML IVPB (17:23)
--- NOTE | 2022-09-26 18:32 | PC.NURSE ---
End of Shift: Patient pleasant and cooperative. Patient with soft BP's but vitally stable, lungs clear, BS WNL, IV running LR at 75ml. Patient rates pain with activity at most a 2/10, tylenol and 5 mg of oxy given once. Patient 1 assist, walker, gb. Zaragoza was removed with a good amount of blood come out of patient urethra. Patient is up to chair eating dinner and tolerating regular diet. Bladder scan was performed once patient returned from surgery at most 297 was found. Patient used the toilet once and and did not urinate, only drops of blood and one cloth was pulled out of urethra.
[2022-09-26] MEDS: PRAVASTATIN SODIUM 20 MG TABLET 80 MG PO (20:40)
[2022-09-26] MEDS: ASPIRIN 81 MG TABLET EC PO (20:40)
[2022-09-26] MEDS: METOPROLOL SUCCINATE (XL) 25 MG TAB PO (20:40)
[2022-09-26] MEDS: AMIODARONE 200 MG TABLET PO (20:42)
[2022-09-26] MEDS: carvediloL 6.25 MG TABLET 3.125 MG PO (20:42)
[2022-09-26] MEDS: SACUBITRIL 24 mg/VALSARTAN 26 mg TABLET 1 TAB PO (20:43)
--- NOTE | 2022-09-26 20:43 | P.EN_ITS ---
Chart Event Note Time Seen by Provider: 20:30 Date Seen: 09/26/22 Chart Event Note: He continues to have bleeding per penis. He is not passing urine through his penis. Multiple attempts have already been made today to place a Zaragoza catheter, without success. Bladder volume is currently 900 mL. He started to feel uncomfortable. Full suprapubic area on exam. Tinge of blood per meatus. Postop urinary retention. Blunt trauma to urethra from several attempts to place Zaragoza catheter earlier today with residual blood per penis. Underlying benign prostatic hyperplasia with urinary outlet obstruction. His alpha-stephy therapy, tamsulosin, was stopped a few weeks ago due to severe orthostatic hypotension with multiple falls. Orthostatic hypotension vastly improved status post discontinuation of the tamsulosin. Reviewed intervention options with the patient. We do not have a urologist on our staff. We have exhausted our efforts to try to place Zaragoza catheter. Tertiary medical centers across the state with Urological Services are currently not accepting transfer patients unless the patient is requiring ICU level of services. Hence the option that we have at this juncture is to attempt to place a suprapubic catheter. Reviewed the indication with the patient and his daughter for placing a suprapubic catheter. Discussed potential adverse consequences of the same including bleeding, infection, and not being successful in achieving this. They understand and are agreeable to proceed. I spoke with Dr. Samuel Moore, emergency department physician, who is proficient at placing suprapubic catheters. Dr. Quan will assess the situation and discussed with patient and daughter again and if they are still agreeable he will proceed with placing a suprapubic catheter this evening. Will likely need to keep the suprapubic catheter in place for some time. Will trenton coburn follow up with his primary care physician to discuss the possibility of reinstituting his alpha-stephy. Will likely need follow-up with Urology as well.
--- NOTE | 2022-09-26 21:03 | PC.NURSE ---
Assist with Dr Marquez to place suprapubic catheter. Area cleansed with betadine, -informed consent with pt and daughter at BS with explanation of why it was placed. numbed area first. Placed without diff. Large amounts flowing brown inged urine returned. catheter instilled with 10cc NS.
[2022-09-26 21:51] LABS: Appearance Urine Cloudy (Clear); Bilirubin Urine 1+ (Negative); Blood Urine 3+ (Negative); Color Urine Red (Yellow); Glucose Urine 1+ (Negative); Ketones Urine Trace (Negative); Leukocyte Esterase Urine Negative (Negative); Nitrite Urine Negative (Negative); Protein Urine 3+ (Negative); Urobilinogen Urine 0.2 (0.2-1.0); pH Urine 6.5 (5.0-8.5)
[2022-09-26 22:12] LABS: Bacteria Urine Few; RBC Urine >100 (0-2); Squamous Epithelial Cell Urine Few (None-Few)
[2022-09-27] MEDS: CEFAZOLIN 1 GM in 0.9 % SODIUM CHLORIDE Mini-bag 100 ML IVPB ×2 (00:43→09:00)
[2022-09-27 02:55] VITALS: BP 131/79; PULSE 71; RESP 16; TEMP 36; O2SAT 93
[2022-09-27] MEDS: HYDROmorphone 0.5 mg/0.5 ml inj IVP (04:16)
[2022-09-27] MEDS: SODIUM CHLORIDE 0.9 % (FLUSH) 10 ML SYRINGE 5 ML IVF ×3 (04:17→20:40)
[2022-09-27] MEDS: ACETAMINOPHEN 325 MG TABLET 650 MG PO ×4 (04:19→20:36)
--- NOTE | 2022-09-27 06:16 | PC.NURSE ---
Checking on pt multiple times tonight-he remains awake and pulling at things with 1:1 at BS. This am sitting on side of bed and no longer redirectable. Pt up to w/c with 1 assist. Offered cup of coffee or perhaps to call his daughter but declines. Suprapubic catheter still in place draining pink tinged urine.
--- NOTE | 2022-09-27 06:28 | PC.NURSE ---
Shift note:Pt was doing well at the start of the shift. Bladder scan done at 1930 was 900ml. Previous attempts to insert urinary catheter failed. informed and asked suprapubic catheter to be inserted. Suprapubic catheter inserted by Surgeon at 2100. Whittaker red colored urine was drained. 1:1 ISAURO observation was set ordered r/t confusion. Pt was confused and insisted several times to go home. Pt re-oriented and made comfortable. Doing well ambulating with A1, walker and GB. Ice pack applied to incision site. Dressing appears clean and dry. Attempt to give PRN oxycodone and melatonin was denied by pt. Vitally stable.
[2022-09-27 07:17] LABS: Hematocrit 31.5 % (37.0-53.0); Hemoglobin* 10.2 gm/dL (13.5-17.5); Mean Corpuscular HGB Conc 32 gm/dL (32-36); Mean Corpuscular Hemoglobin 32 pg (26-34); Mean Corpuscular Volume 97 fL (80-100); Platelet Count* 117 K/uL (140-440); Red Blood Count 3.24 m/uL (4.30-5.90); White Blood Count* 16.26 K/uL (4.50-11.00)
[2022-09-27 07:21] LABS: Slide Review Reflex No
[2022-09-27 07:37] LABS: Sodium* 137 mmol/L (135-149)
[2022-09-27 07:40] VITALS: BP 117/70; PULSE 72; RESP 16; TEMP 36.7; O2SAT 94
[2022-09-27 07:40] LABS: Creatinine* 0.9 mg/dL (0.5-1.5); Est. Creatinine Clearance* 54.87; Estimated Glomerular Filt Rate 83 ml/min
[2022-09-27 07:41] LABS: Blood Urea Nitrogen* 18 mg/dL (7-30)
[2022-09-27 07:46] LABS: INR 1.32 (0.91-1.10); Prothrombin Time 17.2 Seconds
[2022-09-27] MEDS: ASPIRIN 81 MG TABLET EC PO ×2 (09:02→20:37)
[2022-09-27] MEDS: SENNOSIDES/DOCUSATE TABLET 1 TAB PO (09:02)
[2022-09-27] MEDS: OXYCODONE 5 MG TABLET PO (09:02)
[2022-09-27] MEDS: SACUBITRIL 24 mg/VALSARTAN 26 mg TABLET 1 TAB PO ×2 (09:03→20:38)
[2022-09-27] MEDS: LACTOBACILLUS ACIDOPHILUS 1 TABLET 1 TAB PO (09:03)
[2022-09-27] MEDS: RIVASTIGMINE TARTRATE 1.5 MG CAPSULE 6 MG PO ×2 (09:08→20:38)
[2022-09-27] MEDS: polyethylene glycoL 3350 17 GM PACK PO (09:09)
--- NOTE | 2022-09-27 11:06 | PM.ORPN ---
Subjective Subjective Time Seen by Provider: 11:06 Date Seen: 09/27/22 Principal diagnosis: Status post right femoral neck fracture, ORIF 09/26/2022 Interval history: Param is comfortable and conversive an the recliner this morning. He describes no pain while sitting. Ortho Exam Narrative Exam Narrative: Alert . Patient is in no acute distress. Converses without labored breathing. Hearing is grossly intact. Examination of the right lower extremity shows no erythema, very minimal edema about the hip. Dressing is intact. Able to dorsiflex and plantar flex the right ankle. Able to straight leg raise in a seated position. CMS intact right lower extremity. No pain with gentle palpation about the hip or thigh. No edema about the thigh or lower leg or foot. Const Vital Signs, click to edit/add: Vital Signs - 24 hr 09/26/22 12:18 09/26/22 12:25 09/26/22 12:30 Temperature 98.3 F Pulse Rate 70 71 71 Pulse Rate [Pulse Oximeter] Respiratory Rate 14 17 16 Blood Pressure 100/63 87/59 L 91/59 L Blood Pressure [Left Radial Artery] Blood Pressure [Right Arm] Pulse Oximetry 97 95 93 Oxygen Delivery Method Room Air Nasal Cannula Oxygen Flow Rate 2 09/26/22 12:35 09/26/22 12:40 09/26/22 12:45 Temperature 97.1 F L Pulse Rate 70 70 70 Pulse Rate [Pulse Oximeter] Respiratory Rate 15 12 16 Blood Pressure 92/62 95/63 94/62 Blood Pressure [Left Radial Artery] Blood Pressure [Right Arm] Pulse Oximetry 95 97 97 Oxygen Delivery Method Nasal Cannula Oxygen Flow Rate 2 09/26/22 12:48 09/26/22 12:53 09/26/22 13:00 Temperature 97.8 F 97.5 F L Pulse Rate 71 72 Pulse Rate [Pulse Oximeter] 70 Respiratory Rate 17 14 14 Blood Pressure 94/63 Blood Pressure [Left Radial Artery] 93/65 97/63 Blood Pressure [Right Arm] Pulse Oximetry 97 91 Oxygen Delivery Method Room Air Room Air Oxygen Flow Rate 09/26/22 13:15 09/26/22 13:31 09/26/22 13:45 Temperature 97.4 F L 97.3 F L 97.7 F Pulse Rate Pulse Rate [Pulse Oximeter] 71 70 70 Respiratory Rate 14 16 16 Blood Pressure Blood Pressure [Left Radial Artery] 99/67 96/63 98/70 Blood Pressure [Right Arm] Pulse Oximetry 94 92 96 Oxygen Delivery Method Room Air Nasal Cannula Nasal Cannula Nasal Cannula Oxygen Flow Rate 0.5 0.5 0.5 09/26/22 14:15 09/26/22 14:45 09/26/22 15:00 Temperature 97.7 F 97.6 F Pulse Rate Pulse Rate [Pulse Oximeter] 70 69 69 Respiratory Rate 16 16 16 Blood Pressure Blood Pressure [Left Radial Artery] 102/66 96/67 Blood Pressure [Right Arm] Pulse Oximetry 96 96 Oxygen Delivery Method Nasal Cannula Room Air Oxygen Flow Rate 0.5 09/26/22 15:00 09/26/22 15:45 09/26/22 15:57 Temperature 97.6 F Pulse Rate Pulse Rate [Pulse Oximeter] 70 73 Respiratory Rate 16 16 Blood Pressure Blood Pressure [Left Radial Artery] 89/67 L 98/64 Blood Pressure [Right Arm] Pulse Oximetry 96 93 Oxygen Delivery Method Room Air Room Air Oxygen Flow Rate 09/26/22 16:45 09/26/22 17:45 09/26/22 18:45 Temperature 97.1 F L 96.2 F L 97.4 F L Pulse Rate Pulse Rate [Pulse Oximeter] 71 74 73 Respiratory Rate 16 16 16 Blood Pressure Blood Pressure [Left Radial Artery] 112/102 H 110/64 109/89 Blood Pressure [Right Arm] Pulse Oximetry 92 92 91 Oxygen Delivery Method Room Air Room Air Room Air Oxygen Flow Rate 0.5 09/26/22 19:00 09/26/22 23:00 09/26/22 23:00 Temperature 97 F L Pulse Rate Pulse Rate [Pulse Oximeter] 72 76 Respiratory Rate 16 16 16 Blood Pressure Blood Pressure [Left Radial Artery] 115/75 Blood Pressure [Right Arm] Pulse Oximetry 90 94 Oxygen Delivery Method Room Air Room Air Oxygen Flow Rate 09/26/22 23:00 09/27/22 02:55 09/27/22 07:40 Temperature 97.1 F L 96.8 F L 98.1 F Pulse Rate Pulse Rate [Pulse Oximeter] 76 71 72 Respiratory Rate 16 16 16 Blood Pressure Blood Pressure [Left Radial Artery] 111/63 131/79 Blood Pressure [Right Arm] 117/70 Pulse Oximetry 94 93 94 Oxygen Delivery Method Room Air Room Air Room Air Oxygen Flow Rate 09/27/22 07:40 09/27/22 07:40 Temperature Pulse Rate Pulse Rate [Pulse Oximeter] 72 Respiratory Rate 16 16 Blood Pressure Blood Pressure [Left Radial Artery] Blood Pressure [Right Arm] Pulse Oximetry 94 Oxygen Delivery Method Room Air Oxygen Flow Rate Assessment and Plan Assessment and plan (1) Closed subcapital fracture of right femur: Problem details: Closed, nondisplaced, mildly impacted subcapital femoral neck fracture status post ORIF with Dr. Rico 09/26/2022. Status: Acute (2) Functional gait abnormality: Problem details: Uses 4 WW with seat. History of multiple falls. PT to evaluate and treat Status: Acute (3) Dementia: Problem details: Presumably Lewy Body type, with behavioral disturbance. Follows with [facility], [place], [place]. Status: Acute (4) Benign prostatic hyperplasia with lower urinary tract symptoms: Problem details: Previously on tamsulosin, which was discontinued about in mid-August 2022 due to symptomatic orthostatic hypotension with resolution of orthostasis and falls associated with the same. CT scan of pelvis on 09/25/2022: FINDINGS: Acute mildly impacted subcapital right proximal femur fracture. [id number] bilateral hip degenerative arthrosis. Bones are demineralized. Diffuse mild bladder wall thickening can be seen with chronic outlet obstruction or cystitis. Fat containing left inguinal hernia. Status: Acute (5) Sensorineural hearing loss (SNHL), bilateral: Problem details: Utilizes bilateral hearing aids. Status: Acute (6) Obstructive sleep apnea on CPAP: Status: Acute (7) Pacemaker: Status: Acute (8) Heart failure with reduced ejection fraction: Problem details: Echocardiogram 08/22/2022 shows normal LV size with globally reduced ejection fraction of 30-35% Status: Acute (9) Urinary retention: Problem details: History of urinary retention secondary to BPH. Was on tamsulosin which was discontinued 2 weeks ago due to low blood pressure and frequent falls. Status: Acute (10) Urinary catheter complication: Problem details: Zaragoza catheter placed short of getting into the bladder. Caused hematuria. Status: Acute (11) Status post-operative repair of hip fracture: Problem details: 09/26/2022 Status: Acute Assessment and Plan: Plan for discharge [facility] to [facility] when he meets discharge criteria. DVT prophylaxis includes aspirin 81 mg b.i.d. for 35 days, Wilson stockings x1 month may remove for 1 hr per day, frequent ambulation, weight bear as tolerated right lower extremity Remove dressing 1 week. Observe wound and phone Orthopedics with any questions or concerns Use Ice on operative hip unrestricted. Follow-up with orthopedics in 1-2 weeks post surgery Minimize narcotic use. Wean off and discontinue soon as possible. OT and PT while at [facility].
[2022-09-27 11:15] VITALS: BP 102/60; PULSE 71; RESP 14; TEMP 36.6; O2SAT 93
--- NOTE | 2022-09-27 11:34 | PM.IMPN1 ---
Progress Note: A&P Assessment and plan (1) Closed subcapital fracture of right femur: Problem details: Closed, nondisplaced, mildly impacted subcapital femoral neck fracture status post ORIF with Dr. Rico 09/26/2022. Status: Acute (2) Functional gait abnormality: Problem details: Uses 4 WW with seat. History of multiple falls. PT to evaluate and treat Status: Acute (3) Dementia: Problem details: Presumably Lewy Body type, with behavioral disturbance. Follows with [facility], [place], [place]. Status: Acute (4) Benign prostatic hyperplasia with lower urinary tract symptoms: Problem details: Previously on tamsulosin, which was discontinued about in mid-August 2022 due to symptomatic orthostatic hypotension with resolution of orthostasis and falls associated with the same. CT scan of pelvis on 09/25/2022: FINDINGS: Acute mildly impacted subcapital right proximal femur fracture. [id number] bilateral hip degenerative arthrosis. Bones are demineralized. Diffuse mild bladder wall thickening can be seen with chronic outlet obstruction or cystitis. Fat containing left inguinal hernia. Status: Acute (5) Sensorineural hearing loss (SNHL), bilateral: Problem details: Utilizes bilateral hearing aids. Status: Acute (6) Obstructive sleep apnea on CPAP: Status: Acute (7) Pacemaker: Status: Acute (8) Heart failure with reduced ejection fraction: Problem details: Echocardiogram 08/22/2022 shows normal LV size with globally reduced ejection fraction of 30-35% Status: Acute (9) Urinary retention: Problem details: History of urinary retention secondary to BPH. Was on tamsulosin which was discontinued 2 weeks ago due to low blood pressure and frequent falls. Status: Acute (10) Urinary catheter complication: Problem details: Zaragoza catheter placed short of getting into the bladder. Caused hematuria. Now with suprapubic catheter placed emergently. Status: Acute (11) Status post-operative repair of hip fracture: Problem details: 09/26/2022 Status: Acute Plan Continue in hospital for management of postoperative care for him hip fracture surgery. Will consult Urology for plan regarding management of traumatic Zaragoza catheter placement and bladder outlet obstruction. Time Spent With Patient Total time spent: Total time spent today is 40 minutes, 30 minutes in coordination care and discussing with patient other providers ongoing evaluation management of postoperative care and bladder outlet obstruction Subjective Date Seen: 09/27/22 Interval history: 87-year-old male seen in followup of ORIF of right subcapital femur fracture. Yesterday had difficulty in the OR placing a Zaragoza catheter. Likely was placed in his urethra. Presented with hematuria postop. Subsequently found not to be in the bladder and removed. He was unable to void last night. Emergent suprapubic catheter was placed as patient could not be transferred. Patient is doing well today. This morning urine in the catheter was benitez colored, now clear yellow. Exam Narrative: Exam Narrative: He is alert and in no distress. He is quite talkative but confused. Respirations are clear to auscultation. Breathing is unlabored. Cardiovascular: S1, S2, regular rate and rhythm. Abdomen: Bowel sounds active. Abdomen is soft without tenderness. He has a suprapubic catheter coming from the midline below his umbilicus draining a relatively clear yellow urine. Insertion site is without erythema or drainage. Penis appears normal no bloody discharge from the urethra. Hip incision appears without drainage. He has intact pulses and sensation distally. Const: Vital Signs, click to edit/add: Vital Signs - 24 hr 09/26/22 12:18 09/26/22 12:25 09/26/22 12:30 Temperature 98.3 F Pulse Rate 70 71 71 Pulse Rate [Pulse Oximeter] Respiratory Rate 14 17 16 Blood Pressure 100/63 87/59 L 91/59 L Blood Pressure [Le ft Radial Artery] Blood Pressure [Ri ght Arm] Pulse Oximetry 97 95 93 Oxygen Delivery Me thod Room Air Nasal Cannula Oxygen Flow Rate 2 09/26/22 12:35 09/26/22 12:40 09/26/22 12:45 Temperature 97.1 F L Pulse Rate 70 70 70 Pulse Rate [Pulse Oximeter] Respiratory Rate 15 12 16 Blood Pressure 92/62 95/63 94/62 Blood Pressure [Le ft Radial Artery] Blood Pressure [Ri ght Arm] Pulse Oximetry 95 97 97 Oxygen Delivery Me thod Nasal Cannula Oxygen Flow Rate 2 09/26/22 12:48 09/26/22 12:53 09/26/22 13:00 Temperature 97.8 F 97.5 F L Pulse Rate 71 72 Pulse Rate [Pulse Oximeter] 70 Respiratory Rate 17 14 14 Blood Pressure 94/63 Blood Pressure [Le ft Radial Artery] 93/65 97/63 Blood Pressure [Ri ght Arm] Pulse Oximetry 97 91 Oxygen Delivery Me thod Room Air Room Air Oxygen Flow Rate 09/26/22 13:15 09/26/22 13:31 09/26/22 13:45 Temperature 97.4 F L 97.3 F L 97.7 F Pulse Rate Pulse Rate [Pulse Oximeter] 71 70 70 Respiratory Rate 14 16 16 Blood Pressure Blood Pressure [Le ft Radial Artery] 99/67 96/63 98/70 Blood Pressure [Ri ght Arm] Pulse Oximetry 94 92 96 Oxygen Delivery Me thod Room Air Nasal Can nula Nasal Cannula Nasal Cannula Oxygen Flow Rate 0.5 0.5 0.5 09/26/22 14:15 09/26/22 14:45 09/26/22 15:00 Temperature 97.7 F 97.6 F Pulse Rate Pulse Rate [Pulse Oximeter] 70 69 69 Respiratory Rate 16 16 16 Blood Pressure Blood Pressure [Le ft Radial Artery] 102/66 96/67 Blood Pressure [Ri ght Arm] Pulse Oximetry 96 96 Oxygen Delivery Me thod Nasal Cannula Room Air Oxygen Flow Rate 0.5 09/26/22 15:00 09/26/22 15:45 09/26/22 15:57 Temperature 97.6 F Pulse Rate Pulse Rate [Pulse Oximeter] 70 73 Respiratory Rate 16 16 Blood Pressure Blood Pressure [Le ft Radial Artery] 89/67 L 98/64 Blood Pressure [Ri ght Arm] Pulse Oximetry 96 93 Oxygen Delivery Me thod Room Air Room Air Oxygen Flow Rate 09/26/22 16:45 09/26/22 17:45 09/26/22 18:45 Temperature 97.1 F L 96.2 F L 97.4 F L Pulse Rate Pulse Rate [Pulse Oximeter] 71 74 73 Respiratory Rate 16 16 16 Blood Pressure Blood Pressure [Le ft Radial Artery] 112/102 H 110/64 109/89 Blood Pressure [Ri ght Arm] Pulse Oximetry 92 92 91 Oxygen Delivery Me thod Room Air Room Air Room Air Oxygen Flow Rate 0.5 09/26/22 19:00 09/26/22 23:00 09/26/22 23:00 Temperature 97 F L Pulse Rate Pulse Rate [Pulse Oximeter] 72 76 Respiratory Rate 16 16 16 Blood Pressure Blood Pressure [Le ft Radial Artery] 115/75 Blood Pressure [Ri ght Arm] Pulse Oximetry 90 94 Oxygen Delivery Me thod Room Air Room Air Oxygen Flow Rate 09/26/22 23:00 09/27/22 02:55 09/27/22 07:40 Temperature 97.1 F L 96.8 F L 98.1 F Pulse Rate Pulse Rate [Pulse Oximeter] 76 71 72 Respiratory Rate 16 16 16 Blood Pressure Blood Pressure [Le ft Radial Artery] 111/63 131/79 Blood Pressure [Ri ght Arm] 117/70 Pulse Oximetry 94 93 94 Oxygen Delivery Me thod Room Air Room Air Room Air Oxygen Flow Rate 09/27/22 07:40 09/27/22 07:40 09/27/22 11:15 Temperature 98 F Pulse Rate Pulse Rate [Pulse Oximeter] 72 71 Respiratory Rate 16 16 14 Blood Pressure Blood Pressure [Le ft Radial Artery] Blood Pressure [Ri ght Arm] 102/60 Pulse Oximetry 94 93 Oxygen Delivery Me thod Room Air Room Air Oxygen Flow Rate Labs Labs: Laboratory Results - last 24 hr 09/26/22 09/27/22 21:00 07:10 WBC 16.26 H RBC 3.24 L Hgb 10.2 L Hct 31.5 L MCV 97 MCH 32 MCHC 32 Plt Count 117 L INR 1.32 H Sodium 137 Potassium 4.0 BUN 18 Creatinine 0.9 Estimated Creat Clear 54.87 Estimated GFR 83 Urine Color Red A Urine Appearance Cloudy A Urine pH 6.5 Ur Specific [place] 1.010 Urine Protein 3+ A Urine Glucose (UA) 1+ A Urine Ketones Trace A Urine Blood 3+ A Urine Nitrite Negative Urine Bilirubin 1+ A Urine Urobilinogen 0.2 Ur Leukocyte Esterase Negative Urine RBC >100 A Urine WBC 2-5 Ur Squamous Epith Cells Few Urine Bacteria Few A
[2022-09-27] MEDS: TAMSULOSIN HCL 0.4 MG CAPSULE PO (12:02)
--- NOTE | 2022-09-27 14:03 | PC.SOCIAL ---
Discharge planning- Met with pt's son (Néstor) and pt's daughter (Lexie) to discuss discharge plans. Discussed recommendation of SNF. Family only wants pt at [facility]. Discussed pt's insurance and informed the [facility] does not accept [employer] coverage. Also informed that [facility] does not typically take pt's that are 1:1 ratio for care due to low staffing. Family states they know the [facility] and states that pt's has been to [facility] in the past. Family is adamant to have pt go to [facility] and states they will call and discuss with [facility]. Family will update social work. Provided SNF list and asked if there were any facilities that they would like this worker to check with for openings and family stated they do not want pt to go outside of [place]. Family preference is [facility] or to go home with home care and home theater experience expert care in place. Family has lists for home care and home theater experience expert care and will follow up with social work.
[2022-09-27 15:00] VITALS: BP 107/64; PULSE 71; RESP 14; RESP 16; TEMP 36.6; O2SAT 92
--- NOTE | 2022-09-27 15:27 | PC.NURSE ---
End of Shift: Patient pleasant and cooperative, oriented to self. Patient vitally stable, lungs clear, BS WNL, IV intact. Patient rated pain at most 2/10, tylenol and 5 of oxy given once. Patient 1 assist, walker, gb. Patient suprapubic cath draining and intact, yellow. Patient has 1 large BM. Patient tolerating regular diet. Right hip dressing C/D/I. Patient has been up in chair majority of shift, no trying to take a nap. Patient is busy and fidgety, but delightful.
--- NOTE | 2022-09-27 15:59 | ED.GENADULT ---
HPI - General Adult General Chief complaint: Fall/Minor Trauma Stated complaint: fall, right hip pain Time Seen by Provider: 09/25/22 12:44 Source: patient Mode of arrival: ambulatory Limitations: no limitations Related Data Home Medications Medication Instructions Recorded Confirmed amiodarone 200 mg tablet 200 mg PO HS 10/27/21 09/25/22 carvedilol 3.125 mg tablet 3.125 mg PO Q12H 10/27/21 09/25/22 eplerenone 25 mg tablet 12.5 mg PO DAILY 10/27/21 09/25/22 mometasone 50 mcg/actuation nasal 2 spray intranasal DAILY 10/27/21 09/25/22 spray multivitamin (Daily Multi-Vitamin 1 tab PO DAILY 10/27/21 09/25/22 tablet) pravastatin 80 mg tablet 80 mg PO HS 10/27/21 09/25/22 rivastigmine tartrate 1.5 mg 6 mg PO BID 10/27/21 09/25/22 capsule sertraline 50 mg tablet 50 mg PO Q24H 10/27/21 09/25/22 tamsulosin 0.4 mg capsule 0.4 mg PO Q24H 10/27/21 09/25/22 vitamin A-vitamin C-vit E-min 1 tab PO DAILY 10/27/21 09/25/22 tablet (Ocutabs tablet) Lactobacillus acidophilus 10 10,000 mmu cells PO DAILY 09/25/22 09/25/22 billion cell capsule (Probacap) calcium carbonate 600 mg calcium 600 mg PO DAILY 09/25/22 09/25/22 (1,500 mg) tablet (Calcium) cholecalciferol (vitamin D3) 125 5,000 unit PO DAILY 09/25/22 09/25/22 mcg (5,000 unit) tablet (Vitamin D3) cholecalciferol (vitamin D3) 25 25 mcg PO DAILY 09/25/22 09/25/22 mcg (1,000 unit) capsule cyanocobalamin (vitamin B-12) 1,000 mcg PO DAILY 09/25/22 09/25/22 1,000 mcg capsule metoprolol succinate 25 mg 25 mg PO HS 09/25/22 09/25/22 tablet,extended release 24 hr polyethylene glycol 3350 17 17 g PO DAILY PRN 09/25/22 09/25/22 gram/dose oral powder (Miralax) psyllium husk 3.4 gram/5.4 gram 1 tbsp PO BID PRN 09/25/22 09/25/22 oral powder (Metamucil) rivastigmine tartrate 3 mg capsule 6 mg PO BID 09/25/22 09/25/22 sacubitril 24 mg-valsartan 26 mg 1 tab PO BID 09/25/22 09/25/22 tablet (Entresto) vit C 250 mg-vit E 90 mg-zinc 40 1 tab PO DAILY 09/25/22 09/25/22 mg-copper 1 [id number]-hiyknc capsule (PreserVision AREDS-2) Allergies Allergy/AdvReac Type Severity Reaction Status Date / Time bupropion [From Wellbutrin] Allergy Verified 09/25/22 12:55 [facility] Medical History (Updated 09/27/22 @ 11:45 by Adebayo Dalal MD) Urinary retention ?R33.9 - Retention of urine, unspecified (ICD-10) Recurrent falls ?R29.6 - Repeated falls (ICD-10) Major depressive disorder in partial remission ?F32.4 - Major depressive disorder, single episode, in partial remission (ICD-10) Heart failure with reduced ejection fraction ?I50.20 - Unspecified systolic (congestive) heart failure (ICD-10) Obstructive sleep apnea on CPAP ?G47.33 - Obstructive sleep apnea (adult) (pediatric) (ICD-10) ICD (implantable cardioverter-defibrillator) in place ?Z95.810 - Presence of automatic (implantable) cardiac defibrillator (ICD-10) Paroxysmal atrial fibrillation ?I48.0 - Paroxysmal atrial fibrillation (ICD-10) Prolonged QT interval ?R94.31 - Abnormal electrocardiogram [ECG] [EKG] (ICD-10) Thrombocytopenia ?D69.6 - Thrombocytopenia, unspecified (ICD-10) Thoracic aortic aneurysm, without rupture, unspecified ?I71.20 - Thoracic aortic aneurysm, without rupture, unspecified (ICD-10) Nonischemic dilated cardiomyopathy ?I42.0 - Dilated cardiomyopathy (ICD-10) Left bundle branch block (LBBB) ?I44.7 - Left bundle-branch block, unspecified (ICD-10) Orthostasis ?I95.1 - Orthostatic hypotension (ICD-10) Benign prostatic hyperplasia with lower urinary tract symptoms ?N40.1 - Benign prostatic hyperplasia with lower urinary tract symptoms (ICD-10) Mixed hyperlipidemia ?E78.2 - Mixed hyperlipidemia (ICD-10) Sensorineural hearing loss (SNHL), bilateral ?H90.3 - Sensorineural hearing loss, bilateral (ICD-10) Adjustment disorder with mixed anxiety and depressed mood ?F43.23 - Adjustment disorder with mixed anxiety and depressed mood (ICD-10) 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.0 - Latent syphilis, unspecified as early or late (ICD-10) Idiopathic peripheral neuropathy ?G60.9 - Hereditary and idiopathic neuropathy, unspecified (ICD-10) Essential hypertension ?I10 - Essential (primary) hypertension (ICD-10) Functional gait abnormality ?R26.89 - Other abnormalities of gait and mobility (ICD-10) Pacemaker ?Z95.0 - Presence of cardiac pacemaker (ICD-10) Cardiac abnormality ?Q24.9 - Congenital malformation of heart, unspecified (ICD-10) Dementia ?F03.90 - Unspecified dementia without behavioral disturbance (ICD-10) Surgical History (Updated 09/27/22 @ 11:09 by Flavia Reed PA-C) Status post cataract surgery ?Z98.49 - Cataract extraction status, unspecified eye (ICD-10) Status post hemorrhoidectomy ?Z98.890 - Other specified postprocedural states (ICD-10) ?Z87.19 - Personal history of other diseases of the digestive system (ICD-10) History of esophagogastroduodenoscopy (EGD) ?Z98.890 - Other specified postprocedural states (ICD-10) S/P colonoscopy ?Z98.890 - Other specified postprocedural states (ICD-10) Status post appendectomy ?Z90.49 - Acquired absence of other specified parts of digestive tract (ICD-10) Status post biventricular cardiac pacemaker insertion ?Z95.0 - Presence of cardiac pacemaker (ICD-10) Social History (Updated 09/25/22 @ 17:27 by Luisito Suarez MD) Narrative: . Lives with in assisted living facility. Retired. Designates sonRoldan, as POA for health if needed, cell phone [phone]. Dr. Cárdenas is his PCP. Await decision about resuscitation status. What is your current living situation?: I presently have a place to live Problems where you live: no known problems Problems where you live details: n/a In the past 12 months, utilities in danger of being shut off: no In the past 12 mos, have been you worried that your food would run out before you had money to buy more?: never true In the past 12 mos, the food you bought just didn't last and you didn't have money to buy more?: never true Highest level of school completed/degree received: Master's degree Smoking Status: Former smoker Do you use any of these nicotine containing products: None Second hand tobacco smoke exposure: No How often do you have a drink containing alcohol: never AUDIT-C Alcohol total score: 0 Non-prescribed substance use: denies use Caffeine: Yes (4 cups of coffee/day) How often does anyone, including family, friends and others, physically hurt you: never How often does anyone, including family, friends and others, insult or talk down to you: never How often does anyone, including family, friends and others, threaten you with harm: never How often does anyone, including family, friends and others, scream or curse at you: never service: No Course Vital Signs Vital signs: Initial Vital Signs Temperature 98.1 F 09/25/22 12:59 Temperature Source Temporal Artery Scan 09/25/22 12:59 Pulse Rate 69 09/25/22 12:59 Pulse Rhythm Regular 09/25/22 12:59 Pulse Strength 3+ Normal 09/25/22 12:59 Respiratory Rate 16 09/25/22 12:59 Blood Pressure 108/72 09/25/22 12:59 Blood Pressure Mean 84 09/25/22 12:59 Blood Pressure Position Sitting 09/25/22 12:59 Pulse Oximetry 99 09/25/22 12:59 Oxygen Delivery Method Room Air 09/25/22 12:59 Vital Signs Temperature 98.1 F 09/25/22 12:59 Pulse Rate 69 09/25/22 12:59 Respiratory Rate 16 09/25/22 12:59 Blood Pressure 108/72 09/25/22 12:59 Pulse Oximetry 99 09/25/22 12:59 Oxygen Delivery Method Room Air 09/25/22 12:59 Temperature 98 F 09/27/22 11:15 Pulse Rate 71 09/27/22 11:15 Respiratory Rate 14 09/27/22 11:15 Blood Pressure 102/60 09/27/22 11:15 Pulse Oximetry 93 09/27/22 11:15 Oxygen Delivery Method Room Air 09/27/22 11:15 Oxygen Flow Rate 0.5 09/26/22 16:45 Medical Decision Making MDM Narrative Medical decision making narrative: This patient a is post hip surgery in the hospital and has urinary retention and blood per urethra. Dr. Suarez contacted me stating that several attempts have been made unsuccessfully to place a catheter into the bladder through the urethra. The patient now has 1000 mL in his urinary bladder. After discussion with the patient and his daughter they are interested in having a suprapubic catheter placed. After Betadine prep and After anesthesia with 1% lidocaine with epinephrine to the localized area, I used a 11. Blade to make a small incision eventually into the bladder with urine present at the surgical site. I was able to advance the catheter into the bladder with immediate flow of urine from the bladder. The bulb was filled and a dressing was placed around the catheter site. Patient tolerated this procedure well. Lab Data Labs: Lab Results 09/25/22 Range/Units 17:07 WBC 8.90 (4.50-11.00) K/uL RBC 3.61 L (4.30-5.90) m/uL Hgb 11.4 L (13.5-17.5) gm/dL Hct 35.5 L (37.0-53.0) % MCV 98 (80-100) fL MCH 32 (26-34) pg MCHC 32 (32-36) gm/dL RDW Coeff of Claudia 13.7 (11.5-15.5) % Plt Count 120 L (140-440) K/uL Neut % (Auto) 81.1 H (42.0-72.0) % Lymph % (Auto) 9.4 L (20-44) % [place] % (Auto) 8.5 (0.0-11.0) % Eos % (Auto) 0.7 (0.0-7.0) % Baso % (Auto) 0.1 (0.0-3.0) % Neut # (Auto) 7.20 H (1.7-7.0) K/uL Lymph # (Auto) 0.80 L (0.90-2.90) K/uL [place] # (Auto) 0.80 (0.00-0.90) K/UL Eos # (Auto) 0.06 (0.00-0.50) K/uL Baso # (Auto) 0.01 (0.00-0.30) K/uL Abs Immat Gran (auto) 0.02 (0.00-0.30) K/uL Imm/Tot Granulo (auto) 0.2 % Sodium 136 (135-149) mmol/L Potassium 3.9 (3.6-5.1) mmol/L Chloride 103 (96-114) mmol/L Carbon Dioxide 28 (20-32) mmol/L BUN 22 (7-30) mg/dL Creatinine 1.0 (0.5-1.5) mg/dL Estimated Creat Clear 57.15 Estimated GFR 73 ml/min Glucose 93 (60-115) mg/dL Calcium 8.7 (8.4-10.6) mg/dL Discharge Plan Discharge Clinical Impression: Closed hip fracture Patient Disposition: Admitted As Observation Condition: Stable Activity Level: Activity as Tolerated, Weight Bearing as Tolerated and Use Walker Activity Detail: - Mobilize with physical therapy and occupational therapy. Patient will require outpatient PT and OT. - Weight bear as tolerated right lower extremity. - For pain management, frequent icing, acetaminophen and Oxycodone PRN. for pain as needed. - Postoperative prophylactic antibiotics x2 doses - For DVT prophylaxis: aspirin 81 mg b.i.d. for 35 days and Wilson hose and SCDs. - Patient will follow-up in one-two weeks for wound check with [facility]. - Patient will follow-up with Dr. Rico at 6 weeks postop. Discharge Diet: Regular Procedures Catheter Insertion (Urinary) Date of insertion: 09/26/22 Time of insertion: 20:30 Reason for placing: Yes Reason for placing indwelling catheter: Acute urinary retention Bladder scan/ultrasound used before catheterization: Yes Estimated amount of urine (mLs): 1,000 Antiseptic solution prep: Povidone-Iodine Topical anesthesia used: Yes Catheter type/location: Suprapubic Catheter balloon size (mL): 10 Results: successfully catheterized-immediate flow
[2022-09-27 19:00] VITALS: BP 99/69; PULSE 71; RESP 16; TEMP 36.6; O2SAT 92
[2022-09-27] MEDS: MELATONIN 3 MG TABLET PO (20:36)
[2022-09-27] MEDS: METOPROLOL SUCCINATE (XL) 25 MG TAB PO (20:36)
[2022-09-27] MEDS: SENNOSIDES/DOCUSATE TABLET 2 TAB PO (20:37)
[2022-09-27] MEDS: PRAVASTATIN SODIUM 20 MG TABLET 80 MG PO (20:37)
[2022-09-27] MEDS: AMIODARONE 200 MG TABLET PO (20:38)
[2022-09-27 23:00] VITALS: RESP 16; O2SAT 93
[2022-09-28] VITALS (9 sets, daily range): BP systolic 95–110; BP diastolic 59–82; PULSE 56–77; RESP 16–18; TEMP 35.6–36.8; O2SAT 91–98
[2022-09-28] MEDS: HYDROmorphone 0.5 mg/0.5 ml inj IVP (05:48)
[2022-09-28] MEDS: SODIUM CHLORIDE 0.9 % (FLUSH) 10 ML SYRINGE 5 ML IVF ×3 (05:48→21:32)
--- NOTE | 2022-09-28 06:14 | PC.NURSE ---
Shift note: Pt has been in bed throughout the night. Pt allowed to sleep and therefore no Bp checked. Has been on 1:1 ISAURO observation. No behaviors noted except this morning at 0540 where pt disconnected the urine bag from the Zaragoza. Beddings changes and suprapubic dressing changed. Pt complained of pain of 5 to the incision site, Deluded given and was effective.
[2022-09-28] MEDS: ASPIRIN 81 MG TABLET EC PO ×2 (09:44→21:25)
[2022-09-28] MEDS: SENNOSIDES/DOCUSATE TABLET 2 TAB PO ×2 (09:44→21:32)
[2022-09-28] MEDS: TAMSULOSIN HCL 0.4 MG CAPSULE PO (09:44)
[2022-09-28] MEDS: ACETAMINOPHEN 325 MG TABLET 650 MG PO ×3 (09:44→21:25)
[2022-09-28] MEDS: RIVASTIGMINE TARTRATE 1.5 MG CAPSULE 6 MG PO ×2 (09:59→21:26)
[2022-09-28] MEDS: LACTOBACILLUS ACIDOPHILUS 1 TABLET 1 TAB PO (10:00)
[2022-09-28] MEDS: SACUBITRIL 24 mg/VALSARTAN 26 mg TABLET 1 TAB PO ×2 (10:00→21:26)
[2022-09-28 11:34] LABS: Basophils Absolute Auto 0.01 K/uL (0.00-0.30); Basophils Percent Auto 0.1 % (0.0-3.0); Eosinophils Absolute Auto 0.01 K/uL (0.00-0.50); Eosinophils Percent Auto 0.1 % (0.0-7.0); Hematocrit 29.8 % (37.0-53.0); Hemoglobin* 9.4 gm/dL (13.5-17.5); Immature Granulocytes Abs Auto 0.04 K/uL (0.00-0.30); Immature Granulocytes Pct Auto 0.4 %; Lymphocytes Percent Auto 10.9 % (20-44); Mean Corpuscular HGB Conc 32 gm/dL (32-36); Mean Corpuscular Hemoglobin 31 pg (26-34); Mean Corpuscular Volume 100 fL (80-100); Monocytes Percent Auto 8.6 % (0.0-11.0); Neutrophils Percent Auto 79.9 % (42.0-72.0); Platelet Count* 108 K/uL (140-440); RDW Coefficient of Variation % 14.5 % (11.5-15.5); Red Blood Count 2.99 m/uL (4.30-5.90)
[2022-09-28 11:55] LABS: Slide Review Reflex No
--- NOTE | 2022-09-28 13:20 | P.IMPN_ITS ---
Progress Note: A&P Assessment and plan (1) Closed subcapital fracture of right femur: Problem details: Closed, nondisplaced, mildly impacted subcapital femoral neck fracture status post ORIF with Dr. Rico 09/26/2022. Status: Acute (2) Functional gait abnormality: Problem details: Uses 4 WW with seat. History of multiple falls. PT to evaluate and treat Status: Acute (3) Dementia: Problem details: Presumably Lewy Body type, with behavioral disturbance. Follows with [facility], [place], [place]. Status: Acute (4) Benign prostatic hyperplasia with lower urinary tract symptoms: Problem details: Previously on tamsulosin, which was discontinued about in mid-August 2022 due to symptomatic orthostatic hypotension with resolution of orthostasis and falls associated with the same. Remote history of TURP. Dr Puente, [place] u[facility]. CT scan of pelvis on 09/25/2022: FINDINGS: Acute mildly impacted subcapital right proximal femur fracture. [id number] bilateral hip degenerative arthrosis. Bones are demineralized. Diffuse mild bladder wall thickening can be seen with chronic outlet obstruction or cystitis. Fat containing left inguinal hernia. Status: Acute (5) Sensorineural hearing loss (SNHL), bilateral: Problem details: Utilizes bilateral hearing aids. Status: Acute (6) Obstructive sleep apnea on CPAP: Status: Acute (7) Pacemaker: Status: Acute (8) Heart failure with reduced ejection fraction: Problem details: Echocardiogram 08/22/2022 shows normal LV size with globally reduced ejection fra ction of 30-35%. No obvious symptoms or decompensation Status: Acute (9) Urinary retention: Problem details: History of urinary retention secondary to BPH. Was on tamsulosin which was discontinued 2 weeks ago due to low blood pressure and frequent falls. Now restarted Status: Acute (10) Urinary catheter complication: Problem details: Zaragoza catheter placed short of getting into the bladder. Caused hematuria. Now with suprapubic catheter placed emergently. Urologist recommends outpatient follow-up in the next month. Time to allow the urethra to heal. Continue suprapubic catheter tell then. Status: Acute (11) Status post-operative repair of hip fracture: Problem details: 09/26/2022 Status: Acute (12) Delirium: Problem details: Appears to have had postoperative delirium/hospital-acquired delirium which now appears to be resolved. Underlying dementia persists Status: Acute (13) Orthostasis: Problem details: Previously on tamsulosin, which was discontinued about in mid-August 2022 due to symptomatic orthostatic hypotension with resolution of orthostasis and falls associated with the same. After discussing risks and benefits I recommend restarting tamsulosin. Monitor for hypotension Status: Acute (14) Discharge planning issues: Problem details: Patient's family would prefer him to be at [facility]. Apparently his insurance will not cover a rehab stay there. Discussing whether they can manage him at home with / care or we should pursue alternative senior living placement. Status: Acute Plan Continue in hospital for management of postoperative cares, pain control, management of urinary obstruction and suprapubic catheter, delirium. Awaiting decision on disposition plan as well. Time Spent With Patient Total time spent: Total time spent today is 60 minutes, 40 minutes in coordination of care discussing with patient's son and other providers management of urinary obstruction and disposition. 30 minutes in counseling regarding urinary obstruction and disposition planning with patient and his son this morning Subjective Date Seen: 09/28/22 Interval history: 87-year-old male seen in followup of ORIF of right subcapital femur fracture. Preoperatively had difficulty in the OR placing a Zaragoza catheter. Likely was placed in his urethra. Presented with hematuria postop. Subsequently found not to be in the bladder and removed. He was unable to void postoperatively. Emergent suprapubic catheter was placed as patient could not be transferred. Patient is doing well today. This morning urine in the catheter was benitez colored, now clear yellow. Postop day 1, patient was more confused and disoriented. Now postop day 2 he has clear and able to carry on a conversation but does not remember significant details of the past 3 days. He reports some pain when he is ambulating in his hip but otherwise having no pain. He has been eating well. Suprapubic catheter continues to drain clear yellow urine. He did disconnect the catheter from the bag and apparently spilled some urine during the night. It is not clear he is voiding through his urethra yet. Exam Narrative: Exam Narrative: He is alert pleasant in no distress. He is oriented to being in the hospital. Respirations are clear to auscultation. Cardiovascular: S1, S2, irregularly irregular. Abdomen is soft without tenderness or mass. A catheter puncture site is clean and dry. Small amount of bloody discharge from his urethra (hypospadias). Const: Vital Signs, click to edit/add: Vital Signs - 24 hr 09/27/22 15:00 09/27/22 15:00 09/27/22 15:00 Temperature 97.8 F Pulse Rate [Pulse Oximeter] 71 71 Respiratory Rate 14 16 16 Blood Pressure [Ri ght Arm] 107/64 Pulse Oximetry 92 92 Oxygen Delivery Me thod Room Air Room Air Oxygen Flow Rate 09/27/22 19:00 09/27/22 23:00 09/27/22 23:00 Temperature 98 F Pulse Rate [Pulse Oximeter] 71 Respiratory Rate 16 16 16 Blood Pressure [Ri ght Arm] 99/69 Pulse Oximetry 92 93 Oxygen Delivery Me thod Room Air Room Air CPAP Oxygen Flow Rate 09/27/22 23:00 09/28/22 03:00 09/28/22 07:30 Temperature 98.3 F Pulse Rate [Pulse Oximeter] 71 Respiratory Rate 16 16 18 Blood Pressure [Ri ght Arm] Pulse Oximetry 93 93 98 Oxygen Delivery Me thod Room Air CPAP Room Air CPAP Room Air Oxygen Flow Rate 0.5 09/28/22 07:56 09/28/22 11:00 Temperature 96.1 F L 97.8 F Pulse Rate [Pulse Oximeter] 70 56 L Respiratory Rate 18 18 Blood Pressure [Ri ght Arm] 103/65 110/82 Pulse Oximetry 96 96 Oxygen Delivery Me thod Room Air Room Air Oxygen Flow Rate Documenting provider has reviewed patient's vital signs: yes Labs Labs: Laboratory Results - last 24 hr 09/28/22 11:17 WBC 11.00 RBC 2.99 L Hgb 9.4 L Hct 29.8 L MCV 100 MCH 31 MCHC 32 RDW Coeff of Claudia 14.5 Plt Count 108 L Neut % (Auto) 79.9 H Lymph % (Auto) 10.9 L [place] % (Auto) 8.6 Eos % (Auto) 0.1 Baso % (Auto) 0.1 Neut # (Auto) 8.80 H Lymph # (Auto) 1.20 [place] # (Auto) 0.90 Eos # (Auto) 0.01 Baso # (Auto) 0.01 Abs Immat Gran (auto) 0.04 Imm/Tot Granulo (auto) 0.4
--- NOTE | 2022-09-28 14:45 | PC.SOCIAL ---
Discharge planning- Phone call to pt's son (Néstor) to discuss discharge plans. Pt's son states that he has been working with [facility] and [facility] to facilitate an admission. Pt's son knows the GOLF PLAYER ASSISTANT to [facility]. Pt's son still states he does not want to send pt out of town and is considering taking pt home with home care and personal care home administrator care if pt is not able to go to [facility]. Informed pt that this worker would need to know what works best for their family as this worker would need to complete the discharge plans. Pt's son has had a conversation with the MD at [facility] and is aware if pt goes home that pt would potentially discharge tomorrow. Informed pt that this worker would need to put home care in place today. Pt's son will call this worker back after making phone calls to personal care home administrator care and [facility]. Phone call to Janey at [facility] to follow up and see if she was aware that family was attempting to get pt admitted. No answer, left voicemail. Received a phone call from pt's son (Néstor) stating that he is at [facility] in the office of the GOLF PLAYER ASSISTANT. GOLF PLAYER ASSISTANT is requesting to send referral to [phone]. GOLF PLAYER ASSISTANT is reaching out to DON (Tricia Sung) and will follow up if they are able to accept pt. GOLF PLAYER ASSISTANT suggests to pt's son that he have a back up plan for another SNF. Pt's son informs that he would like this worker to call [facility]. Phone call to [facility] left voicemail with admissions. Faxed referral to [phone]. Social work will continue to follow up as needed.
[2022-09-28 16:20] LABS: Free T4 Free Thyroxine* 1.53 ng/dL (0.70-1.85)
--- NOTE | 2022-09-28 19:42 | PC.NURSE ---
shift note: pt vss stable. pt afeb. pt up 1/walker. Pt rating rt hip pain 3-4/10. Pt states pain in incision. drsg to rt hip c/d/i. supra pubic drsg changed due to moderate saturation of serosang drainage. insertion site of supra pubic c/d w/o redness. Pt had 600cc UO. Dr. Benoit updated; no further orders. IV patent. LS clr.
[2022-09-28] MEDS: PRAVASTATIN SODIUM 20 MG TABLET 80 MG PO (21:25)
[2022-09-28] MEDS: AMIODARONE 200 MG TABLET PO (21:26)
[2022-09-28] MEDS: MELATONIN 3 MG TABLET PO (21:26)
[2022-09-29] VITALS (10 sets, daily range): BP systolic 96–124; BP diastolic 61–83; PULSE 70–80; RESP 16–20; TEMP 36.4–36.9; O2SAT 91–97
[2022-09-29] MEDS: ACETAMINOPHEN 325 MG TABLET 650 MG PO ×4 (03:48→21:02)
--- NOTE | 2022-09-29 06:37 | PC.NURSE ---
End of shift: Pt alert to self and situation. Pt does have bouts of confusion but able to be reorientated. At 1900 pt?s BP 104/64, Metoprolol held per MD. At 2300 BP was 95/59, MD updated, no change. O2 sats >90% on RA. Rating pain 0-3/10. Declined PRN pain medication, scheduled Tylenol given. Ice to right hip. Dressing to hip c/d/i. Pt complained of ?pressure? at suprapubic site. Bladder scanned for 0cc. Catheter was advanced and pt stated relief. Dressing to suprapubic site dry w/out redness. Catheter intact and draining. A1 w/ walker and gait belt. Bed alarm in place.
--- NOTE | 2022-09-29 09:34 | PM.IMPN1 ---
Progress Note: A&P Assessment and plan (1) Status post-operative repair of hip fracture: Problem details: - ORIF with Dr. Rico of Orthopedic Surgery 09/26/2022 Status: Acute (2) Orthostasis: Problem details: - previously on tamsulosin, d/c'd in August 202203/29 symptomatic orthostatic hypotension with resolution of orthostasis and increased falls - Tamsulosin was restarted here after suprapubic catheter placement; patient had symptomatic hypotension 09/28, so Tamsulosin d/c'd again 09/29 - still on home CHF medications with holding parameters Status: Acute (3) Urinary catheter complication: Problem details: - during surgery, alonso catheter placed short of bladder, + hematuria; suprapubic catheter placed emergently - Dr. Dalal reviewed with Urology by phone, recommends outpatient follow-up in the next month, give urethra time to heal - continue suprapubic catheter in the meantime Status: Acute (4) Discharge planning issues: Problem details: - working on SNF placement Status: Acute (5) ICD (implantable cardioverter-defibrillator) in place: Status: Acute (6) Heart failure with reduced ejection fraction: Problem details: - TTE 08/22/2022 shows normal LV size with globally reduced ejection fraction of 30-35% - follows with Cardiology as an outpatient Status: Acute (7) Pacemaker: Status: Acute (8) Dementia: Problem details: - presumably Lewy Body type, with behavioral disturbance (no agitation during stay). Follows with [facility], [place], [place]. Status: Acute (9) Benign prostatic hyperplasia with lower urinary tract symptoms: Problem details: - Previously on tamsulosin (see above) - Remote history of TURP with Dr Puente of [place] u[facility]. - CT scan of pelvis on 09/25/2022: FINDINGS: Acute mildly impacted subcapital right proximal femur fracture. [id number] bilateral hip degenerative arthrosis. Bones are demineralized. Diffuse mild bladder wall thickening can be seen with chronic outlet obstruction or cystitis. Fat containing left inguinal hernia. Status: Acute Plan - continue therapies, home medications - to SNF next week - ASA, Teds, SCDs for ppx - son updated at bedside, questions answered Subjective Date Seen: 09/29/22 Interval history: Param was admitted after a fall at home (+ hip fracture) on 09/25, POD #3 from ORIF. He has no concerns for hospitalist this morning; did have a short episode of dizziness last night, and Metoprolol was held. He continues to work with therapies postoperatively. Son at bedside today. We discussed Code status (previous POLST states DNR/DNI), but both son and Param request Full Code status at this time. Exam Narrative: Exam Narrative: GEN: Alert and pleasant, sitting in bedside chair HEENT: EOMIs bilaterally, no scleral icterus CV: RRR, No concerning murmurs, heart sounds distant R: LCTA bilaterally without concerning wheezing, air movement adequate Ab: soft, no ttp, ABD pad covering suprapubic catheter Ext: wearing cathi hose Skin: No concerning skin lesions or rashes on exposed skin Neuro: Nonfocal Psych: mild memory impairment evident, pleasant without agitation Const: Vital Signs, click to edit/add: Vital Signs - 24 hr 09/28/22 11:00 09/28/22 15:00 09/28/22 16:36 Temperature 97.8 F 97.8 F Pulse Rate [Pulse Oximeter] 56 L 68 Respiratory Rate 18 18 18 Blood Pressure [Ri ght Arm] 110/82 107/66 Pulse Oximetry 96 94 92 Oxygen Delivery Me thod Room Air Room Air Room Air 09/28/22 19:25 09/28/22 23:22 09/28/22 23:24 Temperature 97.8 F 98.0 F Pulse Rate [Pulse Oximeter] 77 74 Respiratory Rate 18 18 18 Blood Pressure [Ri ght Arm] 104/64 95/59 L Pulse Oximetry 92 91 91 Oxygen Delivery Me thod Room Air Room Air Room Air 09/29/22 03:18 09/29/22 07:30 09/29/22 07:44 Temperature 98.5 F 98.1 F Pulse Rate [Pulse Oximeter] 73 80 Respiratory Rate 18 18 18 Blood Pressure [Ri ght Arm] 100/66 117/68 Pulse Oximetry 91 91 94 Oxygen Delivery Me thod Room Air Room Air Room Air Labs Labs: Laboratory Results - last 24 hr 09/28/22 09/28/22 09/28/22 11:17 14:14 14:38 WBC 11.00 RBC 2.99 L Hgb 9.4 L Hct 29.8 L MCV 100 MCH 31 MCHC 32 RDW Coeff of Claudia 14.5 Plt Count 108 L Neut % (Auto) 79.9 H Lymph % (Auto) 10.9 L [place] % (Auto) 8.6 Eos % (Auto) 0.1 Baso % (Auto) 0.1 Neut # (Auto) 8.80 H Lymph # (Auto) 1.20 [place] # (Auto) 0.90 Eos # (Auto) 0.01 Baso # (Auto) 0.01 Abs Immat Gran (auto) 0.04 Imm/Tot Granulo (auto) 0.4 Free T4 1.53 Lab Acknowledgement Test Added
[2022-09-29] MEDS: LACTOBACILLUS ACIDOPHILUS 1 TABLET 1 TAB PO (09:41)
[2022-09-29] MEDS: RIVASTIGMINE TARTRATE 1.5 MG CAPSULE 6 MG PO (09:42)
[2022-09-29] MEDS: ASPIRIN 81 MG TABLET EC PO ×2 (09:42→21:03)
[2022-09-29] MEDS: SENNOSIDES/DOCUSATE TABLET 2 TAB PO (09:42)
[2022-09-29] MEDS: SODIUM CHLORIDE 0.9 % (FLUSH) 10 ML SYRINGE 5 ML IVF ×2 (09:43→21:03)
[2022-09-29 17:21] LABS: C.Difficile Negative (Negative); CDIFFEPI 027 PRESUMPTIVE NEGATIVE (Negative)
--- NOTE | 2022-09-29 18:50 | PC.NURSE ---
shift note: supra pubic intact. wtih drsg dry. LS clr. IS to 1999 with poor performance. Vss stable. pt afeb. pt had xlg BM; incont/cont. pt tolerating meals. 1/walker for transfers. IVpatent. drsg to rt hip c/d/i/. rt l/e with intact cms
[2022-09-29] MEDS: PRAVASTATIN SODIUM 20 MG TABLET 80 MG PO (21:02)
[2022-09-29] MEDS: AMIODARONE 200 MG TABLET PO (21:02)
[2022-09-29] MEDS: SACUBITRIL 24 mg/VALSARTAN 26 mg TABLET 1 TAB PO (21:03)
[2022-09-29] MEDS: METOPROLOL SUCCINATE (XL) 25 MG TAB PO (21:03)
[2022-09-29] MEDS: MELATONIN 3 MG TABLET PO (21:03)
[2022-09-30] VITALS (7 sets, daily range): BP systolic 102–127; BP diastolic 67–80; PULSE 69–94; RESP 18–20; TEMP 36.3–36.9; O2SAT 94–96
[2022-09-30] MEDS: ACETAMINOPHEN 325 MG TABLET 650 MG PO ×4 (03:27→20:51)
--- NOTE | 2022-09-30 06:37 | PC.NURSE ---
Pt A&O w/ some forgetfulness but pleasant and cooperative. VSS w/ sats >90% on RA. Pt rating pain in hip 04/06. Pt denied PRN pain medication. Hip dressing c/d/i. Ice to site. Suprapubic cath intact and draining. IV dressing changed. A1 w/ walker and gait belt. Bed alarm in place. ? ?
[2022-09-30 06:54] LABS: Basophils Absolute Auto 0.03 K/uL (0.00-0.30); Basophils Percent Auto 0.4 % (0.0-3.0); Eosinophils Absolute Auto 0.27 K/uL (0.00-0.50); Eosinophils Percent Auto 3.5 % (0.0-7.0); Hematocrit 30.9 % (37.0-53.0); Hemoglobin* 9.8 gm/dL (13.5-17.5); Immature Granulocytes Abs Auto 0.05 K/uL (0.00-0.30); Immature Granulocytes Pct Auto 0.6 %; Lymphocytes Percent Auto 17.1 % (20-44); Mean Corpuscular HGB Conc 32 gm/dL (32-36); Mean Corpuscular Hemoglobin 32 pg (26-34); Mean Corpuscular Volume 100 fL (80-100); Monocytes Percent Auto 9.4 % (0.0-11.0); Neutrophils Absolute Auto 5.36 K/uL (1.7-7.0); Platelet Count* 139 K/uL (140-440); RDW Coefficient of Variation % 14.7 % (11.5-15.5); Red Blood Count 3.09 m/uL (4.30-5.90); White Blood Count* 7.77 K/uL (4.50-11.00)
[2022-09-30 07:03] LABS: Slide Review Reflex No
[2022-09-30 07:05] LABS: Chloride* 108 mmol/L (96-114)
[2022-09-30 07:06] LABS: Sodium* 138 mmol/L (135-149)
[2022-09-30 07:08] LABS: Carbon Dioxide* 26 mmol/L (20-32); Creatinine* 1.1 mg/dL (0.5-1.5); Est. Creatinine Clearance* 49.88; Estimated Glomerular Filt Rate 65 ml/min
[2022-09-30 07:09] LABS: Blood Urea Nitrogen* 23 mg/dL (7-30); Calcium* 8.4 mg/dL (8.4-10.6); Glucose* 88 mg/dL (60-115)
[2022-09-30] MEDS: LACTOBACILLUS ACIDOPHILUS 1 TABLET 1 TAB PO (09:16)
[2022-09-30] MEDS: SACUBITRIL 24 mg/VALSARTAN 26 mg TABLET 1 TAB PO ×2 (09:16→20:50)
[2022-09-30] MEDS: ASPIRIN 81 MG TABLET EC PO ×2 (09:16→20:51)
[2022-09-30] MEDS: SENNOSIDES/DOCUSATE TABLET 2 TAB PO ×2 (09:16→20:51)
[2022-09-30] MEDS: SODIUM CHLORIDE 0.9 % (FLUSH) 10 ML SYRINGE 5 ML IVF ×2 (09:20→20:56)
--- NOTE | 2022-09-30 10:42 | P.IMPN_ITS ---
Progress Note: A&P Assessment and plan (1) Status post-operative repair of hip fracture: Problem details: - ORIF with Dr. Rico of Orthopedic Surgery 09/26/2022 Status: Acute (2) Orthostasis: Problem details: - previously on tamsulosin, d/c'd in August 202203/29 symptomatic orthostatic hypotension with resolution of orthostasis and increased falls - Tamsulosin was restarted here after suprapubic catheter placement; patient had symptomatic hypotension 09/28, so Tamsulosin d/c'd again 09/29 - still on home CHF medications with holding parameters Status: Acute (3) Urinary catheter complication: Problem details: - during surgery, alonso catheter placed short of bladder, + hematuria; suprapubic catheter placed emergently - Dr. Dalal reviewed with Urology by phone, recommends outpatient follow-up in the next month, give urethra time to heal - continue suprapubic catheter in the meantime Status: Acute (4) Discharge planning issues: Problem details: - working on SNF placement Status: Acute (5) ICD (implantable cardioverter-defibrillator) in place: Status: Acute (6) Heart failure with reduced ejection fraction: Problem details: - TTE 08/22/2022 shows normal LV size with globally reduced ejection fraction of 30-35% - follows with Cardiology as an outpatient, medically managed Status: Acute (7) Pacemaker: Status: Acute (8) Dementia: Problem details: - presumably Lewy Body type, with behavioral disturbance (no agitation during stay). Follows with [facility], [place], [place]. Status: Acute (9) Benign prostatic hyperplasia with lower urinary tract symptoms: Problem details: - Previously on tamsulosin (see above) - Remote history of TURP with Dr Puente of [place] urology. - CT scan of pelvis on 09/25/2022: FINDINGS: Acute mildly impacted subcapital right proximal femur fracture. Vcjv-[id number] bilateral hip degenerative arthrosis. Bones are demineralized. Diffuse mild bladder wall thickening can be seen with chronic outlet obstruction or cystitis. Fat containing left inguinal hernia. Status: Acute Plan - per above - anticipate SNF placement early next week - son updated at bedside, questions answered Subjective Date Seen: 09/30/22 Interval history: Param was admitted to the hospital after a fall at home (+ hip fracture) on 09/25, POD #4 from ORIF. We are awaiting placement for SNF/rehab. BP stable, asymptomatic from lower BP (chronically low 2/2 CHF medications). Tolerating suprapubic catheter (placed emergently postoperatively 2/2 urinary retention) - will need close outpatient Urology followup upon d/c. Exam Narrative: Exam Narrative: GEN: Alert and pleasant, sitting comfortably in bedside chair HEENT: EOMIs bilaterally, no scleral icterus CV: RRR, No concerning murmurs R: LCTA bilaterally without concerning wheezing, air movement adequate Skin: No concerning skin lesions or rashes on exposed skin Neuro: Nonfocal Psych: Appropriate for chronic conditions Const: Vital Signs, click to edit/add: Vital Signs - 24 hr 09/29/22 12:00 09/29/22 13:02 09/29/22 15:07 Temperature 98.2 F Pulse Rate [Pulse Oximeter] 70 70 Respiratory Rate 18 18 Blood Pressure [Le ft Radial Artery] 107/74 96/61 Blood Pressure [Ri ght Arm] Pulse Oximetry 93 96 Oxygen Delivery Me thod Room Air Room Air 09/29/22 15:07 09/29/22 17:05 09/29/22 20:07 Temperature 98.4 F 97.6 F Pulse Rate [Pulse Oximeter] 70 71 Respiratory Rate 16 18 20 Blood Pressure [Le ft Radial Artery] 119/72 Blood Pressure [Ri ght Arm] 123/72 Pulse Oximetry 92 97 95 Oxygen Delivery Me thod Room Air Room Air Room Air 09/29/22 23:18 09/29/22 23:19 09/30/22 03:25 Temperature 97.4 F L Pulse Rate [Pulse Oximeter] 73 70 Respiratory Rate 18 18 20 Blood Pressure [Le ft Radial Artery] Blood Pressure [Ri ght Arm] 124/83 107/74 Pulse Oximetry 94 94 94 Oxygen Delivery Me thod Room Air Room Air Room Air 09/30/22 07:00 Temperature Pulse Rate [Pulse Oximeter] Respiratory Rate 18 Blood Pressure [Le ft Radial Artery] Blood Pressure [Ri ght Arm] Pulse Oximetry 96 Oxygen Delivery Me thod Room Air Labs Labs: Laboratory Results - last 24 hr 09/29/22 09/30/22 16:21 05:52 WBC 7.77 RBC 3.09 L Hgb 9.8 L Hct 30.9 L MCV 100 MCH 32 MCHC 32 RDW Coeff of Claudia 14.7 Plt Count 139 L Neut % (Auto) 69.0 Lymph % (Auto) 17.1 L [place] % (Auto) 9.4 Eos % (Auto) 3.5 Baso % (Auto) 0.4 Neut # (Auto) 5.36 Lymph # (Auto) 1.30 [place] # (Auto) 0.70 Eos # (Auto) 0.27 Baso # (Auto) 0.03 Abs Immat Gran (auto) 0.05 Imm/Tot Granulo (auto) 0.6 Sodium 138 Potassium 4.0 Chloride 108 Carbon Dioxide 26 BUN 23 Creatinine 1.1 Estimated Creat Clear 49.88 Estimated GFR 65 Glucose 88 Calcium 8.4 Stl C. diff Tox B Gene Negative Stl C. diff [id number] PRESUMPTIVE NEGATIVE
--- NOTE | 2022-09-30 18:58 | PC.NURSE ---
shift note: drsg to rt hip c/d/i. changed supra pubic drsg to rt lower abd due to moderate amount of serous drainage. insertion site and skin around supra pubic c/d/i. IV patent. LS clr. HR reg. BP wnl. Pt denies dizziness with activity. 1/walker for transfers.
[2022-09-30] MEDS: METOPROLOL SUCCINATE (XL) 25 MG TAB PO (20:51)
[2022-09-30] MEDS: PRAVASTATIN SODIUM 20 MG TABLET 80 MG PO (20:51)
[2022-09-30] MEDS: MELATONIN 3 MG TABLET PO (20:51)
[2022-09-30] MEDS: AMIODARONE 200 MG TABLET PO (20:52)
[2022-10-01] VITALS (7 sets, daily range): BP systolic 106–139; BP diastolic 62–86; PULSE 68–72; RESP 18; TEMP 36.4–36.7; O2SAT 94–98
[2022-10-01] MEDS: ACETAMINOPHEN 325 MG TABLET 650 MG PO ×4 (04:21→21:12)
--- NOTE | 2022-10-01 04:40 | PC.NURSE ---
A&O w/ periodic confusion but pleasant and cooperative. VSS w/ sats >90% on RA. Dressing to hip c/d/i w/ ice to site. Suprapubic catheter in place and draining. A1 w/ walker and gait belt. Bed alarm in place
--- NOTE | 2022-10-01 05:44 | PC.NURSE ---
Took on care of this patient at 0200. Rested well during noc. Rates pain 04/06. Ice to op site. A1/walker/GB. CPAP mask found on floor at 0230. Patient declined to put back on.
[2022-10-01] MEDS: LACTOBACILLUS ACIDOPHILUS 1 TABLET 1 TAB PO (09:08)
[2022-10-01] MEDS: ASPIRIN 81 MG TABLET EC PO ×2 (09:08→21:13)
[2022-10-01] MEDS: SENNOSIDES/DOCUSATE TABLET 2 TAB PO ×2 (09:08→21:12)
[2022-10-01] MEDS: SODIUM CHLORIDE 0.9 % (FLUSH) 10 ML SYRINGE 5 ML IVF ×2 (09:09→21:25)
[2022-10-01] MEDS: SACUBITRIL 24 mg/VALSARTAN 26 mg TABLET 1 TAB PO ×2 (09:09→21:12)
--- NOTE | 2022-10-01 11:34 | P.IMPN_ITS ---
Progress Note: A&P Assessment and plan (1) Status post-operative repair of hip fracture: Problem details: - ORIF with Dr. Rico of Orthopedic Surgery 09/26/2022 Status: Acute (2) Orthostasis: Problem details: - previously on tamsulosin, d/c'd in August 202203/29 symptomatic orthostatic hypotension with resolution of orthostasis and increased falls - Tamsulosin was restarted 09/26 after suprapubic catheter placement; patient had symptomatic hypotension 09/28, so Tamsulosin d/c'd again 09/29 - still on home CHF medications with holding parameters Status: Acute (3) Urinary catheter complication: Problem details: - during surgery, alonso catheter placed short of bladder, + hematuria; suprapubic catheter placed emergently - Dr. Dalal reviewed with Urology by phone, recommends outpatient follow-up upon discharge, give urethra time to heal - continue suprapubic catheter in the meantime Status: Acute (4) Discharge planning issues: Problem details: - working on SNF placement Status: Acute (5) ICD (implantable cardioverter-defibrillator) in place: Status: Acute (6) Heart failure with reduced ejection fraction: Problem details: - TTE 08/22/2022 shows normal LV size with globally reduced ejection fraction of 30-35% - follows with Cardiology as an outpatient, medically managed Status: Acute (7) Pacemaker: Status: Acute (8) Dementia: Problem details: - presumably Lewy Body type, with behavioral disturbance (no agitation during stay). Follows with [facility], [place], [place]. Status: Acute (9) Benign prostatic hyperplasia with lower urinary tract symptoms: Problem details: - Previously on tamsulosin (see above) - Remote history of TURP with Dr Puente of [place] urology. - CT scan of pelvis on 09/25/2022: FINDINGS: Acute mildly impacted subcapital right proximal femur fracture. Laip-gr-sdnmiagu bilateral hip degenerative arthrosis. Bones are demineralized. Diffuse mild bladder wall thickening can be seen with chronic outlet obstruction or cystitis. Fat containing left inguinal hernia. Status: Acute Plan - per above - medically stable, appropriate for SNF placement when bed available - son updated at bedside, questions answered Subjective Date Seen: 10/01/22 Interval history: Param was admitted to the hospital after a fall at home (+ hip fracture) on 09/25, POD #[address] Rico of Orthopedic Surgery. No acute events overnight. Comorbidities remain stable. Continues to tolerate suprapubic catheter (placed emergently postoperatively 2/2 urinary retention with bleeding after Alonso placement) - will need close outpatient Urology followup upon d/c. Exam Narrative: Exam Narrative: GEN: Alert and smiling, sitting comfortably in bedside chair HEENT: Normal external ears, EOMIs bilaterally, no scleral icterus CV: RRR, No concerning murmurs, rubs, or gallops R: LCTA bilaterally without concerning wheezing, rales, or rhonchi Ab: ABD pad covering suprapubic catheter, no concerning skin findings in this area Ext: wwp, no concerning edema Skin: No concerning skin lesions or rashes on exposed skin Neuro: Nonfocal Psych: Pleasant, MCI apparent Const: Vital Signs, click to edit/add: Vital Signs - 24 hr 09/30/22 13:12 09/30/22 16:00 09/30/22 16:13 Temperature 98.1 F 98.4 F Pulse Rate [Pulse Oximeter] 69 70 Respiratory Rate 18 18 18 Blood Pressure [Le ft Radial Artery] 119/68 Blood Pressure [Ri ght Arm] 127/80 Pulse Oximetry 94 96 96 Oxygen Delivery Me thod Room Air Room Air Room Air Oxygen Flow Rate 09/30/22 19:41 09/30/22 23:00 09/30/22 23:00 Temperature 97.5 F L Pulse Rate [Pulse Oximeter] 94 70 Respiratory Rate 18 18 18 Blood Pressure [Le ft Radial Artery] Blood Pressure [Ri ght Arm] 105/67 102/68 Pulse Oximetry 94 95 95 Oxygen Delivery Me thod Room Air Room Air Room Air Oxygen Flow Rate 10/01/22 04:19 10/01/22 07:00 10/01/22 07:00 Temperature 98.1 F Pulse Rate [Pulse Oximeter] 71 68 Respiratory Rate 18 18 18 Blood Pressure [Le ft Radial Artery] 139/79 Blood Pressure [Ri ght Arm] Pulse Oximetry 95 96 Oxygen Delivery Me thod Room Air Room Air Oxygen Flow Rate 0.5 10/01/22 07:00 Temperature 98.1 F Pulse Rate [Pulse Oximeter] 71 Respiratory Rate 18 Blood Pressure [Le ft Radial Artery] Blood Pressure [Ri ght Arm] 128/62 Pulse Oximetry 95 Oxygen Delivery Me thod Room Air Oxygen Flow Rate
--- NOTE | 2022-10-01 16:39 | PC.SOCIAL ---
Discharge planning- Received a phone call from [facility] and they do not have beds at this time. Received a phone call from Sara in admissions at [facility] in [place]. Sara states [facility] [place] [facility] will accept pt for admission and will begin the prior authorization with insurance. Phone call to pt's son (Néstor) to provide update. Néstor is ok with proceeding with [facility]. Phone call to [facility]. Provided requested information. [facility] will seek prior authorization. Received a phone call from Sara at [facility]. Pt's insurance prior authorized pt for rehab stay. [facility] can accept pt for tomorrow. Phone call to pt's son (Néstor) provided son with update. Son will transport pt tomorrow at 11:00 am. Provided update to [facility] and to charge nurse. Social work will follow up as needed.
--- NOTE | 2022-10-01 18:39 | PC.NURSE ---
End of Shift: Pt pleasant and cooperative throughout shift with periodic confusion. Reports pain at 2/10 in hip. Well-controlled with tylenol. Pt ambulates with walker, gait belt and SBA. Subrapubic urinary catheter remains patent, in tact and in place, draining well. Tolerating regular diet well.
[2022-10-01] MEDS: PRAVASTATIN SODIUM 20 MG TABLET 80 MG PO (21:12)
[2022-10-01] MEDS: METOPROLOL SUCCINATE (XL) 25 MG TAB PO (21:13)
[2022-10-01] MEDS: AMIODARONE 200 MG TABLET PO (21:13)
[2022-10-01] MEDS: MELATONIN 3 MG TABLET PO (21:13)
[2022-10-02 03:24] VITALS: BP 107/69; PULSE 71; RESP 18; TEMP 36.3; O2SAT 95
[2022-10-02] MEDS: ACETAMINOPHEN 325 MG TABLET 650 MG PO ×2 (03:27→10:33)
--- NOTE | 2022-10-02 06:35 | PC.NURSE ---
A&O w/ bouts of confusion. Pleasant and cooperative. VSS w/ sats >90% on RA. SBA w/ walker and gait belt. Suprapubic catheter in place and draining. Dressing to hip c/d/i. Pain well controlled but scheduled Tylenol. Bed alarm in place.
[2022-10-02 08:25] VITALS: RESP 18; O2SAT 94
[2022-10-02 08:26] VITALS: BP 108/71; RESP 18; TEMP 36.7; O2SAT 94
[2022-10-02 08:28] VITALS: PULSE 71; RESP 18
[2022-10-02 08:30] VITALS: BP 108/71; PULSE 69; RESP 18; TEMP 36.7
[2022-10-02] MEDS: SENNOSIDES/DOCUSATE TABLET 2 TAB PO (08:42)
[2022-10-02] MEDS: ASPIRIN 81 MG TABLET EC PO (08:43)
[2022-10-02] MEDS: LACTOBACILLUS ACIDOPHILUS 1 TABLET 1 TAB PO (08:43)
[2022-10-02] MEDS: SACUBITRIL 24 mg/VALSARTAN 26 mg TABLET 1 TAB PO (08:44)
--- NOTE | 2022-10-02 09:31 | PM.DS1 ---
DS: Providers Provider Date Seen: 10/02/22 Date of admission: 09/25/22 19:15 Primary care physician: Abebe Cárdenas MD Admitting Clinician: Luisito Suarez MD Consults: Orthopedic Surgery, OT, PT, SW Attending Physician on discharge: Gwen Meza MD Date of Discharge: 10/02/22 DS: Diagnosis Discharge Diagnosis (1) Status post-operative repair of hip fracture: Status: Acute Problem details: - post mechanical fall - ORIF with Dr. Rico of Orthopedic Surgery 09/26/2022 (2) Orthostasis: Status: Acute Problem details: - previously on tamsulosin, d/c'd in August 202203/29 symptomatic orthostatic hypotension with resolution of orthostasis and increased falls - Tamsulosin was restarted 09/26 after suprapubic catheter placement; patient had symptomatic hypotension 09/28, so Tamsulosin d/c'd again 09/29 - still on home CHF medications with holding parameters (3) Urinary catheter complication: Status: Acute Problem details: - during surgery, alonso catheter placed short of bladder, + hematuria; suprapubic catheter placed emergently - Dr. Dalal reviewed with Urology by phone, recommends outpatient follow-up upon discharge - continue suprapubic catheter in the meantime (4) ICD (implantable cardioverter-defibrillator) in place: Status: Acute (5) Heart failure with reduced ejection fraction: Status: Acute Problem details: - TTE 08/22/2022 shows normal LV size with globally reduced ejection fraction of 30-35% - follows with Cardiology as an outpatient, medically managed (6) Pacemaker: Status: Acute (7) Dementia: Status: Acute Problem details: - presumably Lewy Body type, with behavioral disturbance (no agitation during stay). Follows with [facility], [place], [place]. (8) Benign prostatic hyperplasia with lower urinary tract symptoms: Status: Acute Problem details: - Previously on tamsulosin (see above), discontinued - Remote history of TURP with Dr Puente of [place] urology. - CT scan of pelvis on 09/25/2022: FINDINGS: Acute mildly impacted subcapital right proximal femur fracture. [id number] bilateral hip degenerative arthrosis. Bones are demineralized. Diffuse mild bladder wall thickening can be seen with chronic outlet obstruction or cystitis. Fat containing left inguinal hernia. DS: Summary Hospital Course Hospital Course: Param was admitted to the hospital after a fall at home on 09/25, sustaining a hip fracture. He had an ORIF with Dr. Rico of Orthopedic Surgery on 09/26. Notable findings during hospital stay: - difficulty placing Alonso catheter perioperatively. Postoperatively, patient was noted to have hematuria with urinary retention; Alonso ineffective. A suprapubic catheter was placed emergently at the bedside and left in during stay. Patient is still not having any urine output from his urethra at this time; close urology follow-up has been scheduled upon discharge to discuss long-term plan regarding catheter. Of note, patient had a TURP remotely - Symptomatic hypotension: Param has CHF with a baseline EF 30-35%. He is medically managed by Cardiology on Entresto, metoprolol, Eplerenone in occasionally has hypotension. This was found to be worsened during stay and upon med review; likely related to restarting his tamsulosin (he had been on this previously but it had been discontinued secondary to orthostasis; we restarted during hospitalization given suprapubic catheter placement). Tamsulosin was again discontinued and patient's symptoms did not recur - cognitive impairment with history of Lewy body dementia: quiescent, continued home medications. Did better when sleeping well, melatonin was helpful at night. Patient medically appropriate for SNF placement on 10/02: Son will be transporting him to [facility] in [place]. He will continue 30 days of aspirin b.i.d. for prophylaxis and have routine orthopedic surgery follow-up. Status at Discharge Functional status at discharge: uses cane/walker Overall status at discharge: patient is progressing back to baseline Time Spent with Patient Time attestation: Total time spent providing and/or coordinating discharge services: Time spent: Greater than 30 minutes Specific discharge activities: Care coordination, discharge planning appointments, medication reconciliation Exam Narrative: Exam Narrative: GEN: Alert and sitting comfortably in bedside chair, very pleasant and answering questions appropriately HEENT: EOMIs bilaterally, no scleral icterus CV: RRR, No concerning murmurs R: LCTA bilaterally without concerning wheezing, air movement adequate Ext: wearing Wilson Hose bilaterally Skin: No concerning skin lesions or rashes on exposed skin Psych: Appropriate for chronic conditions Const: Vital Signs, click to edit/add: Vital Signs - 24 hr 10/01/22 11:00 10/01/22 15:00 10/01/22 15:00 Temperature 97.5 F L Pulse Rate Pulse Rate [Pulse Oximeter] 70 72 Respiratory Rate 18 18 18 Blood Pressure Blood Pressure [Ri ght Arm] 109/75 Pulse Oximetry 95 98 Oxygen Delivery Me thod Room Air Room Air Oxygen Flow Rate 10/01/22 15:00 10/01/22 19:46 10/01/22 23:12 Temperature 98.1 F 98.0 F Pulse Rate Pulse Rate [Pulse Oximeter] 72 70 72 Respiratory Rate 18 18 18 Blood Pressure Blood Pressure [Ri ght Arm] 118/86 106/68 114/75 Pulse Oximetry 98 94 95 Oxygen Delivery Me thod Room Air Room Air Oxygen Flow Rate 10/01/22 23:13 10/02/22 03:24 10/02/22 08:25 Temperature 97.4 F L Pulse Rate Pulse Rate [Pulse Oximeter] 71 Respiratory Rate 18 18 18 Blood Pressure Blood Pressure [Ri ght Arm] 107/69 Pulse Oximetry 95 95 94 Oxygen Delivery Me thod Room Air Room Air Oxygen Flow Rate 10/02/22 08:26 10/02/22 08:28 10/02/22 08:30 Temperature 98.1 F 98.1 F Pulse Rate 69 Pulse Rate [Pulse Oximeter] 71 Respiratory Rate 18 18 18 Blood Pressure 108/71 Blood Pressure [Ri ght Arm] 108/71 Pulse Oximetry 94 Oxygen Delivery Me thod Room Air Oxygen Flow Rate 0.5 Discharge Plan Discharge Disposition: [facility] Date of Admission: 09/25/22 19:15 Attending Provider on Discharge: Gwen Meza Primary Care Provider: Abebe Cárdenas Condition: Stable Discharge Medications: New acetaminophen 325 mg Tablet 650 mg PO Q6H Qty: 60 0RF sennosides-docusate sodium [Stool Softener-Laxative] 8.6-50 mg Tablet 2 tab PO BID Qty: 60 0RF aspirin 81 mg Tablet,Delayed Release (Dr/Ec) 81 mg PO BID Qty: 30 0RF oxycodone 5 mg Tablet 2.5 - 5 mg PO Q4H PRN (Reason: Pain) Qty: 20 0RF melatonin 3 mg Tablet 3 mg PO HS Qty: 30 0RF Continued pravastatin 80 mg tablet 80 mg PO HS multivitamin [Daily Multi-Vitamin] Tablet 1 tab PO DAILY eplerenone 25 mg tablet 12.5 mg PO DAILY amiodarone 200 mg tablet 200 mg PO HS Entresto 24-26 mg tablet 1 tab PO BID metoprolol succinate 25 mg tablet extended release 24 hr 25 mg PO HS cyanocobalamin (vitamin B-12) 1,000 mcg capsule 1,000 mcg PO DAILY cholecalciferol (vitamin D3) [Vitamin D3] 125 mcg (5,000 unit) tablet 5,000 unit PO DAILY rivastigmine tartrate 3 mg capsule 6 mg PO BID PreserVision AREDS-2 250-90-40-1 mg capsule 1 tab PO DAILY calcium carbonate [Calcium 600] 600 mg calcium (1,500 mg) tablet 600 mg PO DAILY polyethylene glycol 3350 [Miralax] 17 gram/dose powder 17 g PO DAILY PRN Metamucil 3.4 gram/5.4 gram powder 1 tbsp PO BID PRN Rx Instructions: mix into at least 8 oz of water or juice before administering Probacap 10 billion cell capsule 10,000 mmu cells PO DAILY Changed mometasone 50 mcg/actuation spray,non-aerosol 2 spray intranasal DAILY PRN (Reason: nasal congestion) Qty: 17 0RF Rx Instructions: administer into each nostril Discontinued rivastigmine tartrate 1.5 mg capsule 6 mg PO BID Ocutabs Tablet 1 tab PO DAILY tamsulosin 0.4 mg capsule 0.4 mg PO Q24H sertraline 50 mg tablet 50 mg PO Q24H carvedilol 3.125 mg tablet 3.125 mg PO Q12H cholecalciferol (vitamin D3) 25 mcg (1,000 unit) capsule 25 mcg PO DAILY Discharge Orders: Discharge Order (Routine); Ordered 10/02/22 Ordered By: Gwen Meza Additional Instructions: 1. See Urology upon discharge to discuss long-term plan for suprapubic catheter (appt scheduled 10/11) 2. After SNF stay, consider home health referral for therapies and home safety evaluation, in addition to homecare attendants already in place. Activity Level: Activity as Tolerated, Weight Bearing as Tolerated and Use Walker Discharge Diet: Regular Follow Up Appointments: [facility] [Outside] (Patient being discharged to [facility].) Mckenna Walter PA-C [Physician Regional Project Manager] - Provider,Not a Local [Referring] - 10/11/22 2:00 pm ([facility] [address] Souza (establish care, recent emergent suprapubic catheter placement). Phone number for appt [phone]) Rodolfo Monahan MD [Referring] - 10/11/22 2:00 pm (Please arrive 20 minutes early, have insurance card and co-pay for appointment.) Wound Care: please evaluate site of suprapubic catheter insertion BID (it has worked well to cover with ABD) Admit to: SNF Discharge Potential: Fair Length of Stay: 30-90 days Can use facility standing orders?: Yes Code Status: Full Code TEDs: Bilateral Knee Rehab Potential: Fair Therapy: Physical Therapy and Occupational Therapy Therapy Orders: Evaluate and Treat, Gait Training and Total Hip Protocol Oxygen: No Urinary Catheter: Yes Glucose Checks: n/a Next INR: n/a Orders are good >30 days: Yes Signature: Gwen Meza MD
--- NOTE | 2022-10-02 10:11 | PC.NURSE ---
discharge. Pt has been very pleasant and cooperative he is alert with some confusion. Reports no pain in hip. he is getting po Tylenol. Pt ambulates with walker, gait belt and 1 assist. SL was d/c intact. he is a fall risk was alarms are on. . Suprapubic urinary catheter remains patent, changed to a leg bag. Tolerating regular diet well. he is eating and drinking. dressing is C/D/I to supra pubic. Waiting for nurse to nurse, called and waiting for call back.
--- NOTE | 2022-10-02 11:10 | PC.NURSE ---
nurse to nurse was gone pt and son checked personal belonging list. all belongings and paperwork sent with pt. he got a w/c ride to car and was helped in to car
--- NOTE | 2022-10-02 11:50 | PC.SOCIAL ---
Discharge planning- Phone call to Sara in admissions at [facility]. Sara asks about the 1:1 ISAURO time pt had during hospital stay. Provided information. Pt will discharge at 11:00 am and son will transport. Completed Preadmission screening. Confirmation #[id number]. Social work will follow up as needed.
== END 2022-10-02 11:00 | DRG 481 ==
LOC: ED 16:18 → SS 17:23 → MEDSURG 17:24 → SS 19:18 → MEDSURG 09-26 07:28
PROVIDERS: Family Medicine; Orthopaedic Surgery; Admitting Provider Internal Medicine; Emergency Provider Student in an Organized Health Care Education/Training Program; PCP Family Medicine; Visit Provider Internal Medicine
PROC: 0QS604Z Reposition Right Upper Femur with Internal Fixation Device, Open Approach (ICD-10-PCS; CPT 27245; principal; 2022-09-26 09:30)
DX: S72.011A Unspecified intracapsular fracture of right femur, initial encounter for closed fracture (principal); F02.818 Dementia in other diseases classified elsewhere, unspecified severity, with other behavioral disturbance; T83.83XA Hemorrhage due to genitourinary prosthetic devices, implants and grafts, initial encounter; F05 Delirium due to known physiological condition; I42.0 Dilated cardiomyopathy; I50.20 Unspecified systolic (congestive) heart failure; N13.8 Other obstructive and reflux uropathy; R33.8 Other retention of urine; R31.9 Hematuria, unspecified; T83.028A Displacement of other urinary catheter, initial encounter; I95.1 Orthostatic hypotension; M16.0 Bilateral primary osteoarthritis of hip; G31.83 Neurocognitive disorder with Lewy bodies; S50.311A Abrasion of right elbow, initial encounter; V48.4XXA Person boarding or alighting a car injured in noncollision transport accident, initial encounter; Y92.093 Driveway of other non-institutional residence as the place of occurrence of the external cause; S60.511A Abrasion of right hand, initial encounter; R26.9 Unspecified abnormalities of gait and mobility; G47.33 Obstructive sleep apnea (adult) (pediatric); G90.9 Disorder of the autonomic nervous system, unspecified; I48.0 Paroxysmal atrial fibrillation; I11.0 Hypertensive heart disease with heart failure; H90.3 Sensorineural hearing loss, bilateral; N40.1 Benign prostatic hyperplasia with lower urinary tract symptoms; Z95.810 Presence of automatic (implantable) cardiac defibrillator; I71.20 Thoracic aortic aneurysm, without rupture, unspecified; E78.2 Mixed hyperlipidemia; F32.4 Major depressive disorder, single episode, in partial remission; G89.18 Other acute postprocedural pain
CPT/HCPCS: 01210; 36415; 51701; 51702; 51798; 64450; 72192; 73080; 73110; 73502; 73551; 73564; 76000; 76857; 76942; 80048; 81003; 81015; 82565; 82803; 83605; 83735; 84100; 84132; 84295; 84439; 84443; 84520; 85025; 85027; 85610; 86140; 87086; 87493; 93005; 97110; 97116; 97162; 97165; 97535; 99100; 99283; 99284; 99285; A4340; A9270; C1713; J0665; J0690; J1100; J1170; J1885; J2250; J2371; J2795; J3490; J7030; J7120

== ENCOUNTER 2023-04-12 14:30 | Outpatient (RCR) | payer OTHER, SELFPAY | END 2023-06-11 17:46 | disposition home or self-care (01) | PROVIDERS: PCP Family Medicine; Visit Provider Family Medicine | DX: R53.1 Weakness (principal); R29.6 Repeated falls; R26.89 Other abnormalities of gait and mobility; Z87.81 Personal history of (healed) traumatic fracture; Z98.890 Other specified postprocedural states; R26.81 Unsteadiness on feet; Z51.89 Encounter for other specified aftercare | CPT/HCPCS: 97110; 97112; 97116; 97162; 97530 ==

== ENCOUNTER 2023-08-30 14:05 | Observation (INO) | payer OTHER, SELFPAY ==
[2023-08-30] VITALS (14 sets, daily range): BP systolic 91–132; BP diastolic 42–77; PULSE 70–76; RESP 16–22; TEMP 36.5–36.8; O2SAT 89–95; BMI 23.1
--- NOTE | 2023-08-30 14:56 | CRLHL7_ITS ---
For Patients: As a result of the Century Cures Act, medical imaging exams and procedure reports are released immediately into your electronic medical record. You may view this report before your referring provider. If you have questions, please contact your health care provider. Indication: Week Technique: PA and lateral views of the chest. Comparison: None. Findings: Left chest AICD with right atrial and biventricular leads. Mildly enlarged cardiomediastinal silhouette with calcified aortic knob. Mild interstitial prominence. Mild bibasilar opacities. No pleural effusions or visualized pneumothorax. Moderate multilevel degenerative changes of the visualized spine. Impression: 1. Mild bibasilar opacities are favored to represent atelectasis given low lung volumes. 2. Mild interstitial prominence may represent senescent change or mild pulmonary edema. Dictated by Willy Simmons MD @ 08/30/2023 4:06:16 PM (Electronically Signed)
[2023-08-30 15:24] LABS: Basophils Percent Auto 0.2 % (0.0-3.0); Eosinophils Percent Auto 0.5 % (0.0-7.0); Hematocrit 34.1 % (37.0-53.0); Hemoglobin* 11.1 gm/dL (13.5-17.5); Immature Granulocytes Pct Auto 0.8 %; Mean Corpuscular HGB Conc 33 gm/dL (32-36); Mean Corpuscular Hemoglobin 32 pg (26-34); Mean Corpuscular Volume 99 fL (80-100); Neutrophils Percent Auto 78.5 % (42.0-72.0); Platelet Count* 145 K/uL (140-440); RDW Coefficient of Variation % 13.2 % (11.5-15.5); Red Blood Count 3.43 m/uL (4.30-5.90); White Blood Count* 11.63 K/uL (4.50-11.00)
[2023-08-30 15:32] LABS: Slide Review Reflex No
[2023-08-30 15:46] LABS: Chloride* 104 mmol/L (96-114)
[2023-08-30 15:47] LABS: Potassium* 5.6 mmol/L (3.6-5.1); Sodium* 132 mmol/L (135-149)
[2023-08-30 15:48] LABS: Albumin* 4.4 g/dL (3.3-5.0)
[2023-08-30 15:49] LABS: Est. Creatinine Clearance* 56.76; Estimated Glomerular Filt Rate 73 ml/min
[2023-08-30 15:50] LABS: Anion Gap 8 mEq/L (7-15); Blood Urea Nitrogen* 21 mg/dL (7-30); Carbon Dioxide* 20 mmol/L (20-32); Glucose* 93 mg/dL (60-115)
[2023-08-30 15:51] LABS: Alanine Aminotransferase* 19 U/L (4-50); Aspartate Amino Transferase* 44 U/L (12-35); Bilirubin Total* 1.6 mg/dL (0.1-1.5); Calcium* 8.6 mg/dL (8.4-10.6); Magnesium* 2.3 mg/dL (1.5-2.6); Total Protein* 7.8 g/dL (6.0-8.3)
[2023-08-30 16:03] LABS: PCR FLU A Negative PCR FLU A (Negative); PCR FLU B Negative PCR FLU B (Negative); SARS PCR* Negative SARS-CoV-2 (Negative)
[2023-08-30 16:06] LABS: Alkaline Phosphatase* < 20 U/L (40-150); C Reactive Protein* 19.1 mg/dL (0.5-1.0)
[2023-08-30 16:07] LABS: Troponin, Point-of-Care* 0.01 ng/ml (0.01-0.04)
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
[2023-08-30 16:35] LABS: Lactate* 0.9 mmol/L (0.5-1.9)
--- NOTE | 2023-08-30 17:23 | P.IMHP_ITS ---
Hospitalist- H&P: HPI History of Present Illness Date Seen: 08/30/23 Chief complaint: weakness - immobility Narrative: Param Tomas is a 88 year old male who presented to the ER with his son Néstor today. Néstor is at the bedside during H&P. He has a history of Alzheimer's dementia with 24/7 caregiving at home. Over the past few days, has been more confused and weak. He slid out of his chair yesterday, no fall. He also complained once of R hip pain, and has had more urinary incontinence (occasionally incontinent of urine overnight as baseline; over the past few days has needed brief 24/7). He has not had any UOP since 0700 this morning. ER Course and Findings: - atelectasis on CXR - Elevated WBC with PMN predominance - Na of 132, K of 5.6 - elevated bilirubin (1.6) with elevated direct (1.0) and AST of 44, normally - BP in ED 90s/60s, received 500mL of NS - EKG with LBBB (has this on previous EKGs), atrial paced rhythm Upon arrival to the floor, Param's BP is 130/80. He is having dinner and appears nontoxic. Review of Systems Status of ROS: Reports: 10 or more systems reviewed and unremarkable except as noted in History and below Narrative: - no abdominal pain, nausea, vomiting, or stool changes - no chest pain or dyspnea [facility] Medical History (Updated 08/30/23 @ 20:22 by Gwen Meza MD) Dementia ?F03.90 - Unspecified dementia without behavioral disturbance (ICD-10) Heart failure with reduced ejection fraction ?I50.20 - Unspecified systolic (congestive) heart failure (ICD-10) Closed subcapital fracture of right femur ?S72.011A - Unspecified intracapsular fracture of right femur, initial encounter for closed fracture (ICD-10) Durable power of civil litigation attorney in chart Fall ?W19.XXXA - Unspecified fall, initial encounter (ICD-10) Urinary retention ?R33.9 - Retention of urine, unspecified (ICD-10) Recurrent falls ?R29.6 - Repeated falls (ICD-10) Major depressive disorder in partial remission ?F32.4 - Major depressive disorder, single episode, in partial remission (ICD-10) Obstructive sleep apnea on CPAP ?G47.33 - Obstructive sleep apnea (adult) (pediatric) (ICD-10) ICD (implantable cardioverter-defibrillator) in place ?Z95.810 - Presence of automatic (implantable) cardiac defibrillator (ICD-10) Paroxysmal atrial fibrillation ?I48.0 - Paroxysmal atrial fibrillation (ICD-10) Prolonged QT interval ?R94.31 - Abnormal electrocardiogram [ECG] [EKG] (ICD-10) Thrombocytopenia ?D69.6 - Thrombocytopenia, unspecified (ICD-10) Thoracic aortic aneurysm, without rupture, unspecified ?I71.20 - Thoracic aortic aneurysm, without rupture, unspecified (ICD-10) Nonischemic dilated cardiomyopathy ?I42.0 - Dilated cardiomyopathy (ICD-10) Left bundle branch block (LBBB) ?I44.7 - Left bundle-branch block, unspecified (ICD-10) Orthostasis ?I95.1 - Orthostatic hypotension (ICD-10) Benign prostatic hyperplasia with lower urinary tract symptoms ?N40.1 - Benign prostatic hyperplasia with lower urinary tract symptoms (ICD- 10) Mixed hyperlipidemia ?E78.2 - Mixed hyperlipidemia (ICD-10) Sensorineural hearing loss (SNHL), bilateral ?H90.3 - Sensorineural hearing loss, bilateral (ICD-10) Adjustment disorder with mixed anxiety and depressed mood ?F43.23 - Adjustment disorder with mixed anxiety and depressed mood (ICD-10) 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.0 - Latent syphilis, unspecified as early or late (ICD-10) Idiopathic peripheral neuropathy ?G60.9 - Hereditary and idiopathic neuropathy, unspecified (ICD-10) Essential hypertension ?I10 - Essential (primary) hypertension (ICD-10) Functional gait abnormality ?R26.89 - Other abnormalities of gait and mobility (ICD-10) Pacemaker ?Z95.0 - Presence of cardiac pacemaker (ICD-10) Cardiac abnormality ?Q24.9 - Congenital malformation of heart, unspecified (ICD-10) Surgical History (Updated 08/30/23 @ 17:26 by Gwen Meza MD) Status post-operative repair of hip fracture ?Z98.890 - Other specified postprocedural states (ICD-10) ?Z87.81 - Personal history of (healed) traumatic fracture (ICD-10) Status post cataract surgery ?Z98.49 - Cataract extraction status, unspecified eye (ICD-10) Status post hemorrhoidectomy ?Z98.890 - Other specified postprocedural states (ICD-10) ?Z87.19 - Personal history of other diseases of the digestive system (ICD-10) History of esophagogastroduodenoscopy (EGD) ?Z98.890 - Other specified postprocedural states (ICD-10) S/P colonoscopy ?Z98.890 - Other specified postprocedural states (ICD-10) Status post appendectomy ?Z90.49 - Acquired absence of other specified parts of digestive tract (ICD- 10) Status post biventricular cardiac pacemaker insertion ?Z95.0 - Presence of cardiac pacemaker (ICD-10) Social History (Updated 08/30/23 @ 19:12 by Gwen Meza MD) Narrative: . Lives with in assisted living facility with 24/7 care at home. 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 Designates son, Roldan, as POA for health if needed, cell phone [phone]. Dr. Cárdenas is his PCP. Would like full medical treatment for medical management, but no CPR/intubation. What is your current living situation?: I presently have a place to live Problems where you live: no known problems Problems where you live details: n/a In the past 12 months, utilities in danger of being shut off: no In past 12 months, lack of transportation kept you from medical appts, meetings, work, or getting things needed for daily living: no In the past 12 mos, have been you worried that your food would run out before you had money to buy more?: never true In the past 12 mos, the food you bought just didn't last and you didn't have money to buy more?: never true Highest level of school completed/degree received: Master's degree Smoking Status: Former smoker Do you use any of these nicotine containing products: None Second hand tobacco smoke exposure: No How often do you have a drink containing alcohol: never AUDIT-C Alcohol total score: 0 Non-prescribed substance use: denies use Caffeine: Yes (4 cups of coffee/day) How often does anyone, including family, friends and others, physically hurt you : never How often does anyone, including family, friends and others, insult or talk down to you: never How often does anyone, including family, friends and others, threaten you with harm: never How often does anyone, including family, friends and others, scream or curse at you: never service: No Meds Home Medications and Allergies Home Medications ?Medication ?Instructions ?Recorded ?Confirmed ?Type amiodarone 200 mg tablet 200 mg PO HS 10/27/21 08/30/23 History eplerenone 25 mg tablet 12.5 mg PO DAILY 10/27/21 08/30/23 History multivitamin (Daily Multi-Vitamin 1 tab PO DAILY 10/27/21 08/30/23 History tablet) pravastatin 80 mg tablet 80 mg PO HS 10/27/21 08/30/23 History Lactobacillus acidophilus 10 10,000 mmu cells PO DAILY 09/25/22 08/30/23 History billion cell capsule (Probacap) calcium carbonate (Calcium 600) 600 mg PO DAILY 09/25/22 08/30/23 History cholecalciferol (vitamin D3) 125 5,000 unit PO DAILY 09/25/22 08/30/23 History mcg (5,000 unit) tablet (Vitamin D3) cyanocobalamin (vitamin B-12) 1,000 mcg PO DAILY 09/25/22 08/30/23 History 1,000 mcg capsule metoprolol succinate 25 mg 25 mg PO HS 09/25/22 08/30/23 History tablet,extended release 24 hr polyethylene glycol 3350 17 17 g PO DAILY PRN 09/25/22 08/30/23 History gram/dose oral powder (Miralax) psyllium husk 3.4 gram/5.4 gram 1 tbsp PO BID PRN 09/25/22 08/30/23 History oral powder (Metamucil) rivastigmine tartrate 3 mg capsule 6 mg PO BID 09/25/22 08/30/23 History sacubitril 24 mg-valsartan 26 mg 1 tab PO BID 09/25/22 08/30/23 History tablet (Entresto) vit C 250 mg-vit E 90 mg-zinc 40 1 tab PO DAILY 09/25/22 08/30/23 History mg-copper 1 cx-avtzzs-ncxmeh capsule (PreserVision AREDS-2) sertraline 50 mg tablet 75 mg PO DAILY 11/07/22 08/30/23 History tamsulosin 0.4 mg capsule 0.4 mg PO Q24H 11/07/22 08/30/23 History acetaminophen 500 mg tablet 1,000 mg PO BID PRN 12/20/22 08/30/23 History (Tylenol Extra Strength) levothyroxine 75 mcg tablet 75 mcg PO DAILY 08/30/23 08/30/23 History quetiapine 25 mg tablet 12.5 - 25 mg PO HS 08/30/23 08/30/23 History Allergies Allergy/AdvReac Type Severity Reaction Status Date / Time pollen extracts Allergy Unknown Unverified 12/20/22 10:41 bupropion [From Wellbutrin] Allergy Verified 12/20/22 10:41 tamsulosin AdvReac Mild Verified 08/30/23 20:16 Exam Narrative: Exam Narrative: GEN: Alert and eating dinner comfortably in bed. Pleasantly answering questions, although not always appropriate with his answers HEENT: Normal external ears, wearing hearing aides. EOMIs bilaterally, no scleral icterus CV: RRR, no concerning murmurs but heart sounds distant R: LCTA bilaterally without concerning wheezing, air movement adequate Ab: Soft, no ttp, negative Banks's sign, no masses Ext: wwp, trace LE edema Skin: No concerning skin lesions or rashes on exposed skin Neuro: No focal deficits on limited Neurological exam Psych: MCI evident, no agitation Const: Vital Signs, click to edit/add: Vital Signs - 24 hr 08/30/23 14:27 08/30/23 15:18 08/30/23 15:30 Temperature 97.7 F Pulse Rate 70 73 Pulse Rate [Pulse Oximeter] 73 Respiratory Rate 22 18 Blood Pressure Blood Pressure [Le ft Upper Arm] 91/63 Pulse Oximetry 91 90 90 08/30/23 15:31 08/30/23 15:48 08/30/23 16:00 Temperature Pulse Rate 72 76 70 Pulse Rate [Pulse Oximeter] Respiratory Rate Blood Pressure 98/69 Blood Pressure [Le ft Upper Arm] Pulse Oximetry 90 89 90 08/30/23 16:02 08/30/23 16:33 08/30/23 17:02 Temperature Pulse Rate 70 Pulse Rate [Pulse Oximeter] Respiratory Rate Blood Pressure 93/66 106/42 L 95/77 Blood Pressure [Le ft Upper Arm] Pulse Oximetry 95 Hospitalist - H&P: Result Labs Labs: Short CBC 08/30/23 Range/Units 13:15 WBC 11.63 H (4.50-11.00) K/uL Hgb 11.1 L (13.5-17.5) gm/dL Hct 34.1 L (37.0-53.0) % Plt Count 145 (140-440) K/uL BMP 08/30/23 13:15 Sodium 132 L Potassium 5.6 H Chloride 104 Carbon Dioxide 20 BUN 21 Creatinine 1.0 Glucose 93 Calcium 8.6 Liver Function 08/30/23 Range/Units 13:15 Total Bilirubin 1.6 H (0.1-1.5) mg/dL Direct Bilirubin 1.0 H (0.0-0.5) mg/dL AST 44 H (12-35) U/L ALT 19 (4-50) U/L Alkaline Phosphatase < 20 L (40-150) U/L Albumin 4.4 (3.3-5.0) g/dL Assessment and Plan Assessment and plan (1) Weakness: Problem comment: - ddx: UTI or other infectious process, metabolic encephalopathy/disturbance, progression of dementia - awaiting urine sample, empirically treating with Ceftriaxone given clinical picture - therapies ordered, home with 17/09 care Status: Acute (2) Leukocytosis: Problem comment: - presumably 2/2 infectious process (UTI vs atelectasis) - repeat CXR on 08/30, UA pending, empiric Ceftriaxone (08/30/23) Status: Acute (3) Acute hyperkalemia: Problem comment: - presumably iatrogenic, no EKG change or symptoms - holding Eplerenone, given one dose of 20mg oral Lasix on 08/30/23 - follow electrolytes, restart Eplerenone when stable Status: Acute (4) Acute hyponatremia: Problem comment: - mild at 132, will follow and not initiate a fluid restriction at this time Status: Acute (5) Serum total bilirubin elevated: Problem comment: - significance unclear. No abdominal pain - follow LFTs Status: Acute (6) Hypotension: Problem comment: - most likely iatrogenic, also has had decreased po intake over the past few days - no evidence of sepsis at this time, BP has improved upon arrival to the floor - adrenal insufficiency considered given hypotension + electrolyte disturbance; no recent steroids and improvement with IVFs, deferring steroids on admission - holding parameters on medications, follow Status: Acute (7) Heart failure with reduced ejection fraction: Problem comment: - TTE 08/22/2022 shows normal LV size with globally reduced ejection fraction of 30-35% - follows with Cardiology as an outpatient, medically managed on BB, Entresto, Eplerenone Status: Acute (8) Paroxysmal atrial fibrillation: Problem comment: - on Amiodarone, not anticoagulated Status: Acute (9) Dementia: Problem comment: - presumably Alzheimer's per chart review - continue HS Quetiapine, BID Rivastigmine Status: Acute Plan - per above - son Néstor updated at bedside, questions answered
[2023-08-30] MEDS: 0.9 % SODIUM CHLORIDE 500 ML 500 ML IV (19:51)
[2023-08-30] MEDS: MELATONIN 3 MG TABLET PO (20:12)
[2023-08-30] MEDS: SENNOSIDES/DOCUSATE TABLET 2 TAB PO (20:13)
[2023-08-30] MEDS: FUROSEMIDE 40 MG TABLET 20 MG PO (20:13)
[2023-08-30] MEDS: AMIODARONE 200 MG TABLET PO (20:13)
[2023-08-30] MEDS: METOPROLOL SUCCINATE (XL) 25 MG TAB PO (20:13)
[2023-08-30] MEDS: RIVASTIGMINE TARTRATE 1.5 MG CAPSULE 6 MG PO (20:14)
[2023-08-30] MEDS: SACUBITRIL 24 mg/VALSARTAN 26 mg TABLET 1 TAB PO (20:14)
[2023-08-30] MEDS: QUETIAPINE 25 MG TABLET PO (20:14)
[2023-08-30] MEDS: cefTRIAXone 1 GM in 0.9 % SODIUM CHLORIDE Mini-bag 100 ML IVPB (21:45)
[2023-08-31] VITALS (9 sets, daily range): BP systolic 93–132; BP diastolic 60–82; PULSE 70–82; RESP 16–18; TEMP 36.4–36.9; O2SAT 89–94
[2023-08-31] MEDS: QUETIAPINE 25 MG TABLET PO ×2 (00:23→17:46)
--- NOTE | 2023-08-31 06:38 | PC.NURSE ---
End of shift [id number]: Alert to self. Continuous reorientation. VSS uses CPAP at night. Total incontinence. Turn and repo. Pt agitated this morning with cares.Attempted to reorientate. Pt fell back to sleep. Bed alarm in place.
--- NOTE | 2023-08-31 08:00 | CRLHL7_ITS ---
For Patients: As a result of the Century Cures Act, medical imaging exams and procedure reports are released immediately into your electronic medical record. You may view this report before your referring provider. If you have questions, please contact your health care provider. Indication: Follow-up atelectasis Comparison: Two-view chest August 30, 2023 Technique: Single AP view chest Findings: There is hyperinflation and chronic interstitial change. There are increasing interstitial and airspace opacities of the mjev-siypomo-xegu-right lower lobes which may represent worsening atelectasis versus infiltrates. There is no pneumothorax. The cardiac silhouette is mildly prominent with a biventricular ICD. The bony thorax is grossly intact. Impression: Increasing interstitial and airspace opacities within the ggza-xsdnvjk-bhrw-right lower lobes likely representing worsening atelectasis versus infiltrates. Dictated by Matthew aDly MD @ 08/31/2023 11:37:10 AM (Electronically Signed)
[2023-08-31] MEDS: SENNOSIDES/DOCUSATE TABLET 2 TAB PO ×2 (10:36→20:15)
[2023-08-31] MEDS: LACTOBACILLUS ACIDOPHILUS 1 TABLET 1 TAB PO (10:37)
[2023-08-31] MEDS: LEVOTHYROXINE 75 MCG TABLET PO (10:37)
[2023-08-31] MEDS: OCUVITE TABLET 1 TAB PO (10:38)
[2023-08-31] MEDS: SERTRALINE 50 MG TABLET 75 MG PO (10:38)
[2023-08-31] MEDS: CALCIUM CARBONATE 500 MG TABLET PO (10:38)
[2023-08-31] MEDS: CYANOCOBALAMIN (VITAMIN B-12) 500 MCG TABLET 1000 MCG PO (10:39)
[2023-08-31] MEDS: RIVASTIGMINE TARTRATE 1.5 MG CAPSULE 6 MG PO ×2 (10:40→20:15)
[2023-08-31] MEDS: SACUBITRIL 24 mg/VALSARTAN 26 mg TABLET 1 TAB PO (10:41)
[2023-08-31] MEDS: MULTIVITAMIN/MINERALS 1 TABLET 1 TAB PO (10:43)
[2023-08-31] MEDS: SODIUM CHLORIDE 0.9 % (FLUSH) 10 ML SYRINGE 5 ML IVF ×2 (10:43→21:21)
[2023-08-31 11:07] LABS: Basophils Percent Auto 0.3 % (0.0-3.0); Eosinophils Percent Auto 0.3 % (0.0-7.0); Hematocrit 34.2 % (37.0-53.0); Hemoglobin* 11.3 gm/dL (13.5-17.5); Immature Granulocytes Pct Auto 0.2 %; Lymphocytes Percent Auto 7.9 % (20-44); Mean Corpuscular HGB Conc 33 gm/dL (32-36); Mean Corpuscular Hemoglobin 33 pg (26-34); Mean Corpuscular Volume 99 fL (80-100); Monocytes Percent Auto 8.4 % (0.0-11.0); Neutrophils Percent Auto 82.9 % (42.0-72.0); Platelet Count* 152 K/uL (140-440); RDW Coefficient of Variation % 13.2 % (11.5-15.5); Red Blood Count 3.47 m/uL (4.30-5.90); White Blood Count* 11.67 K/uL (4.50-11.00)
[2023-08-31] MEDS: ACETAMINOPHEN 500 MG TABLET 1000 MG PO ×2 (11:08→17:46)
[2023-08-31 11:10] LABS: Sodium* 138 mmol/L (135-149)
[2023-08-31 11:11] LABS: Anion Gap 10 mEq/L (7-15); Carbon Dioxide* 21 mmol/L (20-32); Chloride* 107 mmol/L (96-114); Glucose* 99 mg/dL (60-115)
[2023-08-31 11:14] LABS: Slide Review Reflex No
[2023-08-31 13:12] LABS: Est. Creatinine Clearance* 57.12; Estimated Glomerular Filt Rate 73 ml/min
[2023-08-31 13:13] LABS: Alkaline Phosphatase* 42 U/L (40-150); Aspartate Amino Transferase* 23 U/L (12-35); Bilirubin Direct* 0.4 mg/dL (0.0-0.5); Bilirubin Total* 0.8 mg/dL (0.1-1.5); Blood Urea Nitrogen* 20 mg/dL (7-30); Calcium* 8.9 mg/dL (8.4-10.6); Total Protein* 7.2 g/dL (6.0-8.3)
[2023-08-31 13:14] LABS: Alanine Aminotransferase* 15 U/L (4-50)
--- NOTE | 2023-08-31 13:30 | P.IMPN_ITS ---
Progress Note: A&P Assessment and plan (1) Weakness: Problem details: - ddx: UTI was suspected initially, however urine culture shows no growth, pneumonia, other infectious process, metabolic encephalopathy/disturbance, progression of dementia - chest x-ray today does show worsening bilateral atelectasis versus infiltrates. I am changing his antibiotic to Zosyn to cover for this. - therapies ordered, home with 17/09 care Status: Acute (2) Pneumonia: Problem details: - Possible pneumonia vs. atelectasis. Expanded antibiotic coverage for this. Avoiding azithromycin due to potential for QT prolongation since patient is already on amiodarone and quetiapine. I have changed him to Zosyn. Will change of over to Augmentin when he is ready for home going. Status: Acute (3) Hypotension: Problem details: - most likely iatrogenic, also has had decreased po intake over the past few days - no evidence of sepsis at this time, BP has improved upon arrival to the floor - adrenal insufficiency considered given hypotension + electrolyte disturbance; no recent steroids and improvement with IVFs, deferring steroids on admission - holding parameters on medications, follow Status: Acute (4) Acute hyperkalemia: Problem details: - presumably iatrogenic, no EKG change or symptoms - holding Eplerenone, given one dose of 20mg oral Lasix on 08/30/23 - orthostatic hypotension today, continue to hold Eplerenone, give small fluid bolus since patient has history of heart failure with reduced ejection fraction. Status: Resolved (5) Serum total bilirubin elevated: Problem details: - significance unclear. No abdominal pain Resolved Status: Resolved (6) Heart failure with reduced ejection fraction: Problem details: - TTE 08/22/2022 shows normal LV size with globally reduced ejection fraction of 30-35% - follows with Cardiology as an outpatient, medically managed on BB, Entresto, Eplerenone - stable, give careful IV fluids when needed Status: Chronic (7) Paroxysmal atrial fibrillation: Problem details: - on Amiodarone, not anticoagulated Status: Chronic (8) Dementia: Problem details: - presumably Alzheimer's per chart review - continue HS Quetiapine - son notes that they give this at 5:30 a.m. at home so that it is already working by the time evening rolls around, the also give p.r.n. quetiapine, BID Rivastigmine Status: Chronic (9) Hypothyroidism: Problem details: - on Synthroid; last TSH 5.93 with normal T4 07/2023 Status: Acute Subjective Time Seen by Provider: 09:44 Date Seen: 08/31/23 Interval history: Param's son, Jonathan, was in the room with him this morning. Néstor tells me that Parma has been weaker and more confused over the past few days. He has not had any coughs or colds. Néstor also tells me that in the last few weeks, Param has been listing to the left. He has no focal numbness or weakness that Néstor is aware of. Néstor also tells me that Param has 24 hour care at home and they standby assist him every time he moves. Rodriguez thinks they would be able to do transfers and ambulation with 1 assist, but if it took 2 people assist then Param would need rehab. Néstor is hoping that Param could get in-home rehab because they have been unsuccessful getting him to appointment for rehab here in town. Exam Narrative: Exam Narrative: General: No acute distress. Awake, alert, oriented to self. No pallor. No jaundice. Oropharynx: Clear. Mucous membranes moist. Cardiovascular: Regular rate and rhythm. Respiratory: Clear to auscultation bilaterally. No wheezes or crackles. Abdomen: Bowel sounds present. Soft, nondistended, nontender. Neuro: There are no focal deficits. Romberg is negative. Cranial nerves 2-12 are intact. No nystagmus. No facial asymmetry. Tongue is midline. Strength is 5/5 in all 4 extremities. Const: Vital Signs, click to edit/add: Vital Signs - 24 hr 08/30/23 14:27 08/30/23 15:18 08/30/23 15:30 Temperature 97.7 F Pulse Rate 70 73 Pulse Rate [Pulse Oximeter] 73 Respiratory Rate 22 18 Blood Pressure Blood Pressure [Le ft Arm] Blood Pressure [Le ft Upper Arm] 91/63 Pulse Oximetry 91 90 90 Oxygen Delivery Nh thod 08/30/23 15:31 08/30/23 15:48 08/30/23 16:00 Temperature Pulse Rate 72 76 70 Pulse Rate [Pulse Oximeter] Respiratory Rate Blood Pressure 98/69 Blood Pressure [Le ft Arm] Blood Pressure [Le ft Upper Arm] Pulse Oximetry 90 89 90 Oxygen Delivery Nh thod 08/30/23 16:02 08/30/23 16:33 08/30/23 17:02 Temperature Pulse Rate 70 Pulse Rate [Pulse Oximeter] Respiratory Rate Blood Pressure 93/66 106/42 L 95/77 Blood Pressure [Le ft Arm] Blood Pressure [Le ft Upper Arm] Pulse Oximetry 95 Oxygen Delivery Me thod 08/30/23 20:00 08/30/23 20:47 08/30/23 23:08 Temperature 98.3 F 98.3 F Pulse Rate 72 Pulse Rate [Pulse Oximeter] 72 72 Respiratory Rate 18 18 Blood Pressure Blood Pressure [Le ft Arm] 129/73 129/73 Blood Pressure [Le ft Upper Arm] Pulse Oximetry 92 92 Oxygen Delivery Me thod Room Air Room Air 08/30/23 23:22 08/30/23 23:24 08/31/23 03:42 Temperature 98.2 F Pulse Rate Pulse Rate [Pulse Oximeter] 72 Respiratory Rate 16 16 18 Blood Pressure Blood Pressure [Le ft Arm] 132/76 Blood Pressure [Le ft Upper Arm] Pulse Oximetry 90 90 Oxygen Delivery Me thod Room Air CPAP Room Air CPAP CPAP 08/31/23 08:49 08/31/23 08:49 Temperature 97.6 F Pulse Rate Pulse Rate [Pulse Oximeter] 74 Respiratory Rate 18 18 Blood Pressure Blood Pressure [Le ft Arm] 132/82 Blood Pressure [Le ft Upper Arm] Pulse Oximetry 91 91 Oxygen Delivery Me thod Room Air Room Air Labs Labs: Laboratory Results - last 24 hr 08/30/23 08/30/23 08/30/23 13:11 13:15 15:51 WBC 11.63 H RBC 3.43 L Hgb 11.1 L Hct 34.1 L MCV 99 MCH 32 MCHC 33 RDW Coeff of Claudia 13.2 Plt Count 145 Neut % (Auto) 78.5 H Lymph % (Auto) 10.0 L [place] % (Auto) 10.0 Eos % (Auto) 0.5 Baso % (Auto) 0.2 Neut # (Auto) 9.10 H Lymph # (Auto) 1.20 [place] # (Auto) 1.20 H Eos # (Auto) 0.10 Baso # (Auto) 0.00 Abs Immat Gran (auto) 0.10 Imm/Tot Granulo (auto) 0.8 Sodium 132 L Potassium 5.6 H Chloride 104 Carbon Dioxide 20 Anion Gap 8 BUN 21 Creatinine 1.0 Estimated Creat Clear 56.76 Estimated GFR 73 Glucose 93 Lactate 0.9 Calcium 8.6 Magnesium 2.3 Total Bilirubin 1.6 H Direct Bilirubin 1.0 H AST 44 H ALT 19 Alkaline Phosphatase < 20 L C-Reactive Protein 19.1 H Total Protein 7.8 Albumin 4.4 SARS-CoV-2 (PCR) Negative SARS-CoV-2 Influenza Type A (PCR) Negative PCR FLU A Influenza Type B (PCR) Negative PCR FLU B POC Troponin I 0.01 08/31/23 10:55 WBC 11.67 H RBC 3.47 L Hgb 11.3 L Hct 34.2 L MCV 99 MCH 33 MCHC 33 RDW Coeff of Claudia 13.2 Plt Count 152 Neut % (Auto) 82.9 H Lymph % (Auto) 7.9 L [place] % (Auto) 8.4 Eos % (Auto) 0.3 Baso % (Auto) 0.3 Neut # (Auto) 9.70 H Lymph # (Auto) 0.90 [place] # (Auto) 1.00 H Eos # (Auto) 0.00 Baso # (Auto) 0.00 Abs Immat Gran (auto) 0.00 Imm/Tot Granulo (auto) 0.2 Sodium 138 Potassium 4.0 Chloride 107 Carbon Dioxide 21 Anion Gap 10 BUN 20 Creatinine 1.0 Estimated Creat Clear 57.12 Estimated GFR 73 Glucose 99 Lactate Calcium 8.9 Magnesium Total Bilirubin 0.8 Direct Bilirubin 0.4 AST 23 ALT 15 Alkaline Phosphatase 42 C-Reactive Protein Total Protein 7.2 Albumin 4.0 SARS-CoV-2 (PCR) Influenza Type A (PCR) Influenza Type B (PCR) POC Troponin I Ordering Physician: Gwen Meza M.D. Date of Service: 08/31/23 Procedure(s): XR chest 1V portable Accession Number(s): [id number] cc: Gwen Meza M.D.; Abebe Crádenas M.D.~ For Patients: As a result of the Century Cures Act, medical imaging exams and procedure reports are released immediately into your electronic medical record. You may view this report before your referring provider. If you have questions, please contact your health care provider. Indication: Follow-up atelectasis Comparison: Two-view chest August 30, 2023 Technique: Single AP view chest Findings: There is hyperinflation and chronic interstitial change. There are increasing interstitial and airspace opacities of the xchm-ffiimwh-biqh-right lower lobes which may represent worsening atelectasis versus infiltrates. There is no pneumothorax. The cardiac silhouette is mildly prominent with a biventricular ICD. The bony thorax is grossly intact. Impression: Increasing interstitial and airspace opacities within the rsjm-yckihyg-ocpy-right lower lobes likely representing worsening atelectasis versus infiltrates. Dictated by Matthew Daly MD @ 08/31/2023 11:37:10 AM (Electronically Signed)
[2023-08-31 13:44] LABS: C Reactive Protein* 25.9 mg/dL (0.5-1.0)
[2023-08-31] MEDS: PIPERACILLIN/TAZOBACTAM 3.375 GM in 0.9 % SODIUM CHLORIDE Mini-bag 100 ML IVPB ×3 (15:58→21:21)
[2023-08-31] MEDS: 0.9 % SODIUM CHLORIDE 500 ML 500 ML IV (16:16)
[2023-08-31] MEDS: MELATONIN 3 MG TABLET PO (17:46)
--- NOTE | 2023-08-31 18:05 | PC.NURSE ---
Patient VSS. Alert and oriented to self. Patient slept until 1000 due to not sleeping well through the night. Tolerated a regular diet with a fair appetite. Pleasant and more lucid today. A2 with gait belt, walker and standing. Voiding in briefs.
[2023-08-31] MEDS: AMIODARONE 200 MG TABLET PO (20:15)
[2023-08-31 21:38] LABS: NT Pro B Type NatriureticPept* 2230 pg/mL
[2023-09-01] VITALS (11 sets, daily range): BP systolic 94–139; BP diastolic 64–79; PULSE 71–96; RESP 16–22; TEMP 36.1–37.1; O2SAT 90–95
[2023-09-01] MEDS: PIPERACILLIN/TAZOBACTAM 3.375 GM in 0.9 % SODIUM CHLORIDE Mini-bag 100 ML IVPB ×4 (03:05→21:27)
--- NOTE | 2023-09-01 06:30 | PC.NURSE ---
End of shift [id number]: Alert to self. Continuous reorientation. when awake pt is joking and telling stories to mortgage underwriter and other staff. VSS uses CPAP at night. Pt had x2 large wet briefs overnight and x1 incont stool and x1 cont stool. Bed alarm in place.
[2023-09-01 07:11] LABS: Basophils Absolute Auto 0.02 K/uL (0.00-0.30); Basophils Percent Auto 0.2 % (0.0-3.0); Eosinophils Absolute Auto 0.13 K/uL (0.00-0.50); Eosinophils Percent Auto 1.4 % (0.0-7.0); Hematocrit 37.5 % (37.0-53.0); Hemoglobin* 12.3 gm/dL (13.5-17.5); Immature Granulocytes Abs Auto 0.09 K/uL (0.00-0.30); Lymphocytes Percent Auto 10.3 % (20-44); Mean Corpuscular HGB Conc 33 gm/dL (32-36); Mean Corpuscular Hemoglobin 32 pg (26-34); Mean Corpuscular Volume 98 fL (80-100); Monocytes Percent Auto 10.9 % (0.0-11.0); Neutrophils Percent Auto 76.2 % (42.0-72.0); Platelet Count* 130 K/uL (140-440); RDW Coefficient of Variation % 13.2 % (11.5-15.5); Red Blood Count 3.82 m/uL (4.30-5.90); White Blood Count* 9.46 K/uL (4.50-11.00)
[2023-09-01 07:16] LABS: Slide Review Reflex No
[2023-09-01] MEDS: LEVOTHYROXINE 75 MCG TABLET PO (07:44)
[2023-09-01 07:55] LABS: Chloride* 105 mmol/L (96-114)
[2023-09-01 07:56] LABS: Albumin* 3.9 g/dL (3.3-5.0); Potassium* 3.8 mmol/L (3.6-5.1); Sodium* 136 mmol/L (135-149)
[2023-09-01 07:58] LABS: Est. Creatinine Clearance* 57.12; Estimated Glomerular Filt Rate 73 ml/min
[2023-09-01 07:59] LABS: Alanine Aminotransferase* 17 U/L (4-50); Alkaline Phosphatase* 43 U/L (40-150); Anion Gap 9 mEq/L (7-15); Aspartate Amino Transferase* 26 U/L (12-35); Bilirubin Total* 0.7 mg/dL (0.1-1.5); Blood Urea Nitrogen* 19 mg/dL (7-30); Carbon Dioxide* 22 mmol/L (20-32); Glucose* 94 mg/dL (60-115); Total Protein* 7.2 g/dL (6.0-8.3)
[2023-09-01 08:00] LABS: Calcium* 8.9 mg/dL (8.4-10.6)
[2023-09-01 08:44] LABS: C Reactive Protein* 27.6 mg/dL (0.5-1.0)
[2023-09-01] MEDS: LACTOBACILLUS ACIDOPHILUS 1 TABLET 1 TAB PO (09:52)
[2023-09-01] MEDS: MULTIVITAMIN/MINERALS 1 TABLET 1 TAB PO (09:52)
[2023-09-01] MEDS: CYANOCOBALAMIN (VITAMIN B-12) 500 MCG TABLET 1000 MCG PO (09:53)
[2023-09-01] MEDS: CALCIUM CARBONATE 500 MG TABLET PO (09:54)
[2023-09-01] MEDS: OCUVITE TABLET 1 TAB PO (09:55)
[2023-09-01] MEDS: RIVASTIGMINE TARTRATE 1.5 MG CAPSULE 6 MG PO ×2 (09:55→21:08)
[2023-09-01] MEDS: SACUBITRIL 24 mg/VALSARTAN 26 mg TABLET 1 TAB PO ×2 (09:55→21:08)
[2023-09-01] MEDS: SERTRALINE 50 MG TABLET 75 MG PO (10:43)
[2023-09-01] MEDS: SODIUM CHLORIDE 0.9 % (FLUSH) 10 ML SYRINGE 5 ML IVF ×2 (10:44→21:08)
--- NOTE | 2023-09-01 11:12 | CRLHL7_ITS ---
For Patients: As a result of the Century Cures Act, medical imaging exams and procedure reports are released immediately into your electronic medical record. You may view this report before your referring provider. If you have questions, please contact your health care provider. INDICATION: Ataxia TECHNIQUE: Noncontrast axial CT of the head. Coronal and sagittal reformats. Bone and soft tissue algorithms. COMPARISON: No relevant comparison studies available at this institution. FINDINGS: Generalized cerebral volume loss, most pronounced throughout the bilateral frontal lobes. No acute intracranial hemorrhage or abnormal extra-axial fluid collection, midline shift or herniation. Preserved cmgraw-white matter differentiation. Unremarkable white matter attenuation. Empty sella configuration. Calcific intracranial atherosclerotic plaquing. Intact calvarium. Clear visualized paranasal sinuses and mastoid air cells. Bilateral lens implants. IMPRESSION: 1. No CT evidence of acute intracranial abnormality. 2. Moderate, bilateral frontal lobe predominant cerebral volume loss. Please note that all CT scans at this facility use dose modulation, iterative reconstruction, and/or weight-based dosing when appropriate to reduce radiation dose to as low as reasonably achievable. Dictated by Hannah Silva MD @ 09/01/2023 1:12:46 PM (Electronically Signed)
[2023-09-01] MEDS: MELATONIN 3 MG TABLET PO (17:03)
[2023-09-01] MEDS: QUETIAPINE 25 MG TABLET PO (17:03)
--- NOTE | 2023-09-01 17:26 | PC.NURSE ---
Patient VSS. Alert and oriented to self. Patient is able to ambulate to the bathroom with A1, gait belt and walker. Tolerated a regular diet well. Ate about 50% of breakfast and lunch. CT scan of brain done today with no abnormal findings.
--- NOTE | 2023-09-01 17:33 | PM.IMPN1 ---
Progress Note: A&P Assessment and plan (1) Weakness: Problem details: - ddx: UTI was suspected initially, however urine culture shows no growth, pneumonia, other infectious process, metabolic encephalopathy/disturbance, progression of dementia - chest x-ray today does show worsening bilateral atelectasis versus infiltrates. I am changing his antibiotic to Zosyn to cover for this. - therapies ordered, home with 17/09 care - improving. Anticipate home tomorrow with son and caregivers. If his son is unable to take him home tomorrow then we will need to seek assisted living or long-term facility. Status: Acute (2) Pneumonia: Problem details: - Possible pneumonia vs. atelectasis. Expanded antibiotic coverage for this. Avoiding azithromycin due to potential for QT prolongation since patient is already on amiodarone and quetiapine. I have changed him to Zosyn. Improving. Will change of over to Augmentin when he is ready for home going. Status: Acute (3) Hypotension: Problem details: - most likely iatrogenic, also has had decreased po intake over the past few days - no evidence of sepsis at this time, BP has improved upon arrival to the floor - adrenal insufficiency considered given hypotension + electrolyte disturbance; no recent steroids and improvement with IVFs, deferring steroids on admission - holding parameters on medications, follow - I note going back that he has had history of blood pressures in the 90s. He has no symptoms with this. I think this is likely his baseline. Status: Resolved (4) Acute hyperkalemia: Problem details: - presumably iatrogenic, no EKG change or symptoms - holding Eplerenone, given one dose of 20mg oral Lasix on 08/30/23 - orthostatic hypotension resolved with a small fluid bolus, continue to hold Eplerenone due to lower blood pressures Status: Resolved (5) Heart failure with reduced ejection fraction: Problem details: - TTE 08/22/2022 shows normal LV size with globally reduced ejection fraction of 30-35% - follows with Cardiology as an outpatient, medically managed on BB, Entresto, Eplerenone - stable, give careful IV fluids when needed Status: Chronic (6) Paroxysmal atrial fibrillation: Problem details: - on Amiodarone, not anticoagulated Status: Chronic (7) Dementia: Problem details: - presumably Alzheimer's per chart review - continue HS Quetiapine - son notes that they give this at 5:30 a.m. at home so that it is already working by the time evening rolls around, the also give p.r.n. quetiapine, BID Rivastigmine Status: Chronic (8) Hypothyroidism: Problem details: - on Synthroid; last TSH 5.93 with normal T4 07/2023 Status: Acute (9) Ataxia: Problem details: I think this is likely secondary to metabolic encephalopathy. Patient does have risk factor for stroke of atrial fibrillation that is not treated with anticoagulation due to risk of fall. Will obtain CT head since ataxia has been going on for several days and time date of onset is not known. Will discuss with son whether not do MRI of CT head is negative. Status: Acute Subjective Time Seen by Provider: 08:33 Date Seen: 09/01/23 Interval history: Paarm is much better today. His son is hesitant to take him home today because he notes Param's speech is still weak but otherwise has returned to normal and he is still leaning to the left a bit, although it is getting better. Developed notes that that has been going on for at least a few days. We discussed that may be due to metabolic encephalopathy from pneumonia verses stroke. He does have a history of atrial fibrillation for which he has not been on anticoagulation due to the risk of fall. Would like me to investigate a little further although it is unclear what we would change if we found stroke. Exam Narrative: Exam Narrative: General: No acute distress. Awake, alert, oriented to self. Smiling and jovial. Sitting in the bedside chair. No pallor. No jaundice. Oropharynx: Clear. Mucous membranes moist. Cardiovascular: Regular rate and rhythm. Respiratory: Clear to auscultation bilaterally. No wheezes or crackles. Abdomen: Bowel sounds present. Soft, nondistended, nontender. Neuro: There are no focal deficits. Romberg is negative. Cranial nerves 2-12 are intact. No nystagmus. No facial asymmetry. Tongue is midline. Strength is 5/5 in all 4 extremities. Const: Vital Signs, click to edit/add: Vital Signs - 24 hr 08/31/23 19:48 08/31/23 23:04 08/31/23 23:04 Temperature 98.0 F 97.6 F Pulse Rate 70 Pulse Rate [Pulse Oximeter] 70 71 Respiratory Rate 18 16 Blood Pressure [Le ft Arm] 93/60 109/75 Pulse Oximetry 90 91 Oxygen Delivery Me thod Room Air CPAP 08/31/23 23:06 09/01/23 02:20 09/01/23 07:00 Temperature 97.0 F L 98.2 F Pulse Rate Pulse Rate [Pulse Oximeter] 84 96 Respiratory Rate 16 20 22 Blood Pressure [Le ft Arm] 137/77 139/76 Pulse Oximetry 91 94 93 Oxygen Delivery Me thod CPAP Room Air Room Air 09/01/23 07:00 09/01/23 07:00 09/01/23 09:41 Temperature Pulse Rate 95 Pulse Rate [Pulse Oximeter] 96 Respiratory Rate 22 22 Blood Pressure [Le ft Arm] Pulse Oximetry 93 Oxygen Delivery Me thod Room Air 09/01/23 11:00 09/01/23 15:00 09/01/23 15:00 Temperature 97.7 F Pulse Rate Pulse Rate [Pulse Oximeter] 80 73 Respiratory Rate 18 20 20 Blood Pressure [Le ft Arm] 116/64 Pulse Oximetry 95 92 Oxygen Delivery Me thod Room Air Room Air 09/01/23 15:20 09/01/23 15:27 Temperature 97.3 F L Pulse Rate 77 Pulse Rate [Pulse Oximeter] 73 Respiratory Rate 20 Blood Pressure [Le ft Arm] 94/70 Pulse Oximetry 92 Oxygen Delivery Me thod Room Air Labs Labs: Laboratory Results - last 24 hr 08/30/23 09/01/23 09/01/23 13:15 05:43 07:35 WBC 9.46 RBC 3.82 L Hgb 12.3 L Hct 37.5 MCV 98 MCH 32 MCHC 33 RDW Coeff of Claudia 13.2 Plt Count 130 L Neut % (Auto) 76.2 H Lymph % (Auto) 10.3 L [place] % (Auto) 10.9 Eos % (Auto) 1.4 Baso % (Auto) 0.2 Neut # (Auto) 7.20 H Lymph # (Auto) 1.00 [place] # (Auto) 1.00 H Eos # (Auto) 0.13 Baso # (Auto) 0.02 Abs Immat Gran (auto) 0.09 Imm/Tot Granulo (auto) 1.0 Sodium 136 Potassium 3.8 Chloride 105 Carbon Dioxide 22 Anion Gap 9 BUN 19 Creatinine 1.0 Estimated Creat Clear 57.12 Estimated GFR 73 Glucose 94 Calcium 8.9 Total Bilirubin 0.7 AST 26 ALT 17 Alkaline Phosphatase 43 C-Reactive Protein 27.6 H NT-Pro-B Natriuret Pep 2230 Total Protein 7.2 Albumin 3.9
[2023-09-01] MEDS: SENNOSIDES/DOCUSATE TABLET 2 TAB PO (21:07)
[2023-09-01] MEDS: AMIODARONE 200 MG TABLET PO (21:07)
[2023-09-02] VITALS (10 sets, daily range): BP systolic 100–122; BP diastolic 59–81; PULSE 62–85; RESP 14–20; TEMP 36.4–37.1; O2SAT 92–95
--- NOTE | 2023-09-02 00:36 | PC.NURSE ---
At 2350 pt's bed alarm went off. When JUNIOR Hernandez and Jeannette Fiore arrived in room pt was lying on on the ground on his left side. Pt was alert and orientated to self. No obvious injuries. Neuros negative. Pt denies any pain. Ceiling lift used to get pt back to bed. Denies headache and n/v. Telecommunication Operator looked at pt skin and no apparent injuries noted. BP 126/79 and HR 81. MD updated, no new orders.
[2023-09-02 05:36] LABS: Appearance Urine Clear (Clear); Bilirubin Urine Negative (Negative); Blood Urine Negative (Negative); Color Urine Yellow (Yellow); Glucose Urine Negative (Negative); Ketones Urine Negative (Negative); Leukocyte Esterase Urine Negative (Negative); Nitrite Urine Negative (Negative); Protein Urine Trace (Negative); Specific Gravity Urine 1.015 (1.000-1.030); Urobilinogen Urine 0.2 (0.2-1.0)
[2023-09-02 05:51] LABS: RBC Urine 0-2 (0-2); Squamous Epithelial Cell Urine Few (None-Few); WBC Urine 0-2 (0-5)
--- NOTE | 2023-09-02 06:11 | PC.NURSE ---
End of shift [id number]: Alert to self. Continuous reorientation. urine sample collected otherwise mostly incontinent. pt denies pain. VSS. Using CPAP overnight. see previous note for incident info. Left message for son. no call back. Bed alarm in place.
[2023-09-02] MEDS: LEVOTHYROXINE 75 MCG TABLET PO (07:42)
[2023-09-02] MEDS: SERTRALINE 50 MG TABLET 75 MG PO (09:23)
[2023-09-02] MEDS: AMOXICILLIN/CLAVULANATE 875 mg/125 mg TABLET PO ×2 (09:23→17:50)
[2023-09-02] MEDS: RIVASTIGMINE TARTRATE 1.5 MG CAPSULE 6 MG PO ×2 (09:23→21:29)
[2023-09-02] MEDS: SACUBITRIL 24 mg/VALSARTAN 26 mg TABLET 1 TAB PO ×2 (09:24→21:29)
[2023-09-02] MEDS: OCUVITE TABLET 1 TAB PO (09:24)
[2023-09-02] MEDS: LACTOBACILLUS ACIDOPHILUS 1 TABLET 1 TAB PO (09:24)
[2023-09-02] MEDS: CALCIUM CARBONATE 500 MG TABLET PO (09:25)
[2023-09-02] MEDS: MULTIVITAMIN/MINERALS 1 TABLET 1 TAB PO (09:25)
[2023-09-02] MEDS: SENNOSIDES/DOCUSATE TABLET 2 TAB PO (09:25)
[2023-09-02] MEDS: CYANOCOBALAMIN (VITAMIN B-12) 500 MCG TABLET 1000 MCG PO (09:25)
--- NOTE | 2023-09-02 14:15 | PC.SOCIAL ---
Addendum entered by JONATHON Robins 09/02/23 16:28: Received an e-mail from Sondra Berrios in admissions at [facility]. Sondra informs that [facility] is declining patient for admission due to patient being so close to baseline. Per Sondra, patient does not appear to have much of a therapy need and it is unlikely that [employer] will prior auth a rehab stay at SNF. Provided update to MD and charge nurse. Phone call to patient's son, Roldan and provided update. Original Note: Discharge planning- Met with patient and patient's son, Jonathan, to discuss discharge plans. Patient's son would like patient to go to SNF for rehab before returning home. Discussed SNF options which are [facility]. [facility] 3. SNF's in [place]. Informed patient's son that [facility] has not accepted patient's insurance ([employer]) in the past due to not having a contract with [employer], but this worker will check to see if anything has changed. Contacted the following SNF's for placement. 1. [facility]- Phone call to Minoo العلي in admissions to see if [facility] accepts [employer], [facility] does not accept [employer]. 2. [facility]- E-mail to Sondra Berrios in admissions to check bed availability. [facility] will have a bed, secure e-mailed referral to Sondra Berrios. 3. [facility]- Phone call to Kori in admissions at [phone]. Left voicemail inquiring on bed availability. Faxed referral for review to [phone]. 4. [facility] in [place]- Phone call to Mar in admissions at [phone]. They have openings. Faxed referral to [phone]. Social Work will continue to follow up as needed.
--- NOTE | 2023-09-02 15:28 | P.IMPN_ITS ---
Progress Note: A&P Assessment and plan (1) Weakness: Problem details: - ddx: UTI was suspected initially, however urine culture shows no growth, pneumonia, other infectious process, metabolic encephalopathy/disturbance, progression of dementia - chest x-ray today does show worsening bilateral atelectasis versus infiltrates. I am changing his antibiotic to Zosyn to cover for this. - therapies ordered, home with 24/7 care - he appears improved and near baseline. His son would like us to look for rehab for him. I have asked our SW to help with this. Status: Acute (2) Pneumonia: Problem details: - Possible pneumonia vs. atelectasis. Expanded antibiotic coverage for this. Avoiding azithromycin due to potential for QT prolongation since patient is already on amiodarone and quetiapine. I have changed him to Zosyn. Improving. Changed to augmentin last night. Status: Acute (3) Dementia: Problem details: - presumably Alzheimer's per chart review - continue HS Quetiapine at low dose. Appreciate Dr. Lewis's recommendations. Start prn depakote in the evenings. Status: Chronic (4) Heart failure with reduced ejection fraction: Problem details: - TTE 08/22/2022 shows normal LV size with globally reduced ejection fraction of 30-35% - follows with Cardiology as an outpatient, medically managed on BB, Entresto, Eplerenone - stable, give careful IV fluids when needed Status: Chronic (5) Paroxysmal atrial fibrillation: Problem details: - on Amiodarone, not anticoagulated Status: Chronic (6) Hypothyroidism: Problem details: - on Synthroid; last TSH 5.93 with normal T4 07/2023 Status: Acute Time Spent With Patient Total time spent: Today I spent 45 minutes rounding on the patient. Greater than 50% included discussing care with the patient's son, team, reviewing data, updating and managing the care plan. Subjective Time Seen by Provider: 09:50 Date Seen: 09/02/23 Interval history: Param fell out of bed overnight. He did not sustain any injuries. His son, Chris gill, is hesitant to take him home. Néstor is concerned that Param is not at his baseline. Néstor tells me Param's speech is different, but not really able to explain what is different. We reviewed that CT head was negative. We discussed possibly doing and MRI for stroke, but that would have to be done at a different facility due to pacemaker. We also discussed afib, risk for stroke and that he has previously been deemed not a candidate for anticoagulation and is not on any anticoagulation. I asked tele neuro see the patient. Dr. Lewis saw the patient and I discussed his recommendations (including that he did not think this was stroke and recommended no further imaging) with the patient's son. Néstor would like Param to get rehab before taking him home. I spoke with our SW, Adriana, about this. Exam Narrative: Exam Narrative: General: No acute distress. Awake, alert, oriented to self. Smiling and jovial. Sitting up straight in the bedside chair. No pallor. No jaundice. Oropharynx: Clear. Mucous membranes moist. Cardiovascular: Regular rate and rhythm. Respiratory: Clear to auscultation bilaterally. No wheezes or crackles. Abdomen: Bowel sounds present. Soft, nondistended, nontender. Neuro: No facial droop or ataxia today. Const: Vital Signs, click to edit/add: Vital Signs - 24 hr 09/01/23 19:25 09/01/23 22:41 09/01/23 23:00 Temperature 98.8 F Pulse Rate 71 Pulse Rate [Pulse Oximeter] 85 76 Respiratory Rate 16 18 Blood Pressure [Le ft Arm] 112/73 135/70 Blood Pressure [Ri ght Arm] Pulse Oximetry 92 90 Oxygen Delivery Me thod Room Air Room Air 09/01/23 23:50 09/02/23 00:43 09/02/23 03:23 Temperature Pulse Rate Pulse Rate [Pulse Oximeter] 81 70 Respiratory Rate 16 16 20 Blood Pressure [Le ft Arm] 126/79 Blood Pressure [Ri ght Arm] Pulse Oximetry 94 94 Oxygen Delivery Me thod Room Air Room Air CPAP 09/02/23 05:20 09/02/23 07:00 09/02/23 07:00 Temperature Pulse Rate Pulse Rate [Pulse Oximeter] 72 76 Respiratory Rate 16 14 14 Blood Pressure [Le ft Arm] 100/81 Blood Pressure [Ri ght Arm] Pulse Oximetry 93 94 Oxygen Delivery Me thod Room Air Room Air 09/02/23 07:47 09/02/23 11:00 Temperature 97.5 F L 98.3 F Pulse Rate Pulse Rate [Pulse Oximeter] 76 75 Respiratory Rate 14 18 Blood Pressure [Le ft Arm] Blood Pressure [Ri ght Arm] 116/70 122/59 L Pulse Oximetry 93 93 Oxygen Delivery Me thod Room Air Room Air Labs Labs: Laboratory Results - last 24 hr 09/02/23 05:27 Urine Color Yellow Urine Appearance Clear Urine pH 6.0 Ur Specific [place] 1.015 Urine Protein Trace A Urine Glucose (UA) Negative Urine Ketones Negative Urine Blood Negative Urine Nitrite Negative Urine Bilirubin Negative Urine Urobilinogen 0.2 Ur Leukocyte Esterase Negative Urine RBC 0-2 Urine WBC 0-2 Ur Squamous Epith Cells Few Urine Bacteria None
[2023-09-02] MEDS: DIVALPROEX SODIUM ER TAB 250 MG PO (16:01)
--- NOTE | 2023-09-02 17:21 | PC.NURSE ---
End of shift-- Very pleasant and cooperative patient. Oriented to person only as per baseline. Drowsy. VSS and pt is afebrile. SPO2 maintained >90% on RA. He denied any pain. LS CTA. He denied nausea and tolerated a regular diet without difficulty. He was up to chair and BR with assist of 2, belt and walker. Pt is strong, but unsteady. Tele-neuro visit at bedside today. Recommendations from Neuro included minimizing use of Seroquel, utilizing Depakote PRN and not disturbing the patient during the night for VS. Hospitalist updated. Incontinent of urine. Son was at bedside most of the day and appears loving and supportive. Report to oncoming shift.
[2023-09-02] MEDS: MELATONIN 3 MG TABLET PO (17:50)
[2023-09-02] MEDS: QUETIAPINE 25 MG TABLET 12.5 MG PO (17:50)
[2023-09-02] MEDS: AMIODARONE 200 MG TABLET PO (21:29)
[2023-09-02] MEDS: SODIUM CHLORIDE 0.9 % (FLUSH) 10 ML SYRINGE 5 ML IVF (21:31)
[2023-09-03 03:00] VITALS: RESP 20
[2023-09-03 06:00] VITALS: RESP 20
[2023-09-03] MEDS: MULTIVITAMIN/MINERALS 1 TABLET 1 TAB PO (10:03)
[2023-09-03] MEDS: AMOXICILLIN/CLAVULANATE 875 mg/125 mg TABLET PO (10:03)
[2023-09-03] MEDS: LEVOTHYROXINE 75 MCG TABLET PO (10:04)
[2023-09-03] MEDS: SERTRALINE 50 MG TABLET 75 MG PO (10:04)
[2023-09-03] MEDS: LACTOBACILLUS ACIDOPHILUS 1 TABLET 1 TAB PO (10:04)
[2023-09-03] MEDS: SENNOSIDES/DOCUSATE TABLET 2 TAB PO (10:04)
[2023-09-03] MEDS: CYANOCOBALAMIN (VITAMIN B-12) 500 MCG TABLET 1000 MCG PO (10:04)
[2023-09-03] MEDS: OCUVITE TABLET 1 TAB PO (10:04)
[2023-09-03] MEDS: CALCIUM CARBONATE 500 MG TABLET PO (10:05)
[2023-09-03] MEDS: RIVASTIGMINE TARTRATE 1.5 MG CAPSULE 6 MG PO (10:05)
[2023-09-03] MEDS: SODIUM CHLORIDE 0.9 % (FLUSH) 10 ML SYRINGE 5 ML IVF (10:06)
[2023-09-03] MEDS: SACUBITRIL 24 mg/VALSARTAN 26 mg TABLET 1 TAB PO (10:06)
[2023-09-03 10:27] VITALS: BP 123/72; PULSE 69; RESP 20; TEMP 36.3; O2SAT 94
--- NOTE | 2023-09-03 11:48 | P.DS_ITS ---
DS: Providers Provider Time Seen by Provider: 09:40 Date Seen: 09/03/23 Date of admission: 08/30/23 17:30 Primary care physician: Abebe Cárdenas MD Admitting Clinician: Queenie Landis PA-C Consults: 08/30/23 19:05 Consult to Physical Therapy [CONS] Routine Comment: Reason(s) for PT Consult:: Evaluate and Treat Any Restrictions?:: No Restrictions 08/30/23 19:07 Consult to Occupational Therapy [CONS] Routine Comment: Reason(s) for OT Consult:: Evaluate and Treat Any Restrictions?:: No Restrictions Attending Physician on discharge: Nory Portillo MD Date of Discharge: 09/03/23 DS: Diagnosis Discharge Diagnosis (1) Weakness: Status: Acute Problem details: - ddx: UTI was suspected initially, however urine culture shows no growth, pneumonia, other infectious process, metabolic encephalopathy/disturbance, progression of dementia - chest x-ray today does show worsening bilateral atelectasis versus infiltrates. I am changing his antibiotic to Zosyn to cover for this. - therapies ordered, home with 17/09 care - he appears improved and near baseline. His son would like us to look for rehab for him. I have asked our SW to help with this. (2) Ataxia: Status: Resolved (3) Pneumonia: Status: Acute Problem details: - Possible pneumonia vs. atelectasis. Expanded antibiotic coverage for this. Avoiding azithromycin due to potential for QT prolongation since patient is already on amiodarone and quetiapine. I have changed him to Zosyn. Improving. Changed to augmentin last night. (4) Hypotension: Status: Resolved Problem details: - most likely iatrogenic, also has had decreased po intake over the past few days - no evidence of sepsis at this time, BP has improved upon arrival to the floor - adrenal insufficiency considered given hypotension + electrolyte disturbance; no recent steroids and improvement with IVFs, deferring steroids on admission - holding parameters on medications, follow - I note going back that he has had history of blood pressures in the 90s. He has no symptoms with this. I think this is likely his baseline. (5) Acute hyperkalemia: Status: Resolved Problem details: - presumably iatrogenic, no EKG change or symptoms - holding Eplerenone, given one dose of 20mg oral Lasix on 08/30/23 - orthostatic hypotension resolved with a small fluid bolus, continue to hold Eplerenone due to lower blood pressures (6) Paroxysmal atrial fibrillation: Status: Chronic Problem details: - on Amiodarone, not anticoagulated (7) Dementia: Status: Chronic Problem details: - presumably Alzheimer's per chart review - continue HS Quetiapine at low dose. Appreciate Dr. Lewis's recommendations. Start prn depakote in the evenings. Avoid using prn quetiapine as much as possible. (8) Acute hyponatremia: Status: Resolved Problem details: - sodium 136 on discharge DS: Summary Hospital Course Hospital Course: Per H&P: Param Tomas is a 88 year old male who presented to the ER with his son Néstor today. Néstor is at the bedside during H&P. He has a history of Alzheimer's dementia with 24/7 caregiving at home. Over the past few days, has been more confused and weak. He slid out of his chair yesterday, no fall. He also complained once of R hip pain, and has had more urinary incontinence (occasionally incontinent of urine overnight as baseline; over the past few days has needed brief 24/7). He has not had any UOP since 0700 this morning. ER Course and Findings: - atelectasis on CXR - Elevated WBC with PMN predominance - Na of 132, K of 5.6 - elevated bilirubin (1.6) with elevated direct (1.0) and AST of 44, normally - BP in ED 90s/60s, received 500mL of NS - EKG with LBBB (has this on previous EKGs), atrial paced rhythm Upon arrival to the floor, Param's BP is 130/80. He is having dinner and appears nontoxic. The next hospital day he was tired and listing to the left. UC negative. CXR concerning for possible pneumonia, so antibiotics adjusted for that. His son stated ataxia had been going on a few weeks. CT head was negative. Neurology was consulted; no further imaging indicated. Param improved and returned to his baseline. See above for details. Son agreeable to take Param home today. Time Spent with Patient Time attestation: Total time spent providing and/or coordinating discharge services: Exam Narrative: Exam Narrative: General: No acute distress. Awake, alert, oriented to self. Smiling and jovia l. Sitting up straight in the bedside chair. No pallor. No jaundice. Oropharynx: Clear. Mucous membranes moist. Cardiovascular: Regular rate and rhythm. Respiratory: Clear to auscultation bilaterally. No wheezes or crackles. Abdomen: Bowel sounds present. Soft, nondistended, nontender. Neuro: No facial droop or ataxia. Const: Vital Signs, click to edit/add: Vital Signs - 24 hr 09/02/23 15:00 09/02/23 15:00 09/02/23 15:00 Temperature 98.2 F Pulse Rate [Pulse Oximeter] 62 62 Respiratory Rate 18 18 18 Blood Pressure [Ri ght Arm] 113/72 Pulse Oximetry 95 95 Oxygen Delivery Me thod Room Air Room Air 09/02/23 19:00 09/02/23 23:00 09/02/23 23:00 Temperature 98.8 F Pulse Rate [Pulse Oximeter] 85 Respiratory Rate 16 16 20 Blood Pressure [Ri ght Arm] 121/64 Pulse Oximetry 92 92 Oxygen Delivery Me thod Room Air CPAP 09/02/23 23:30 09/03/23 03:00 09/03/23 06:00 Temperature Pulse Rate [Pulse Oximeter] Respiratory Rate 20 20 20 Blood Pressure [Ri ght Arm] Pulse Oximetry Oxygen Delivery Me thod 09/03/23 10:27 09/03/23 10:27 Temperature 97.3 F L Pulse Rate [Pulse Oximeter] 69 Respiratory Rate 20 20 Blood Pressure [Ri ght Arm] 123/72 Pulse Oximetry 94 94 Oxygen Delivery Me thod Room Air Room Air DS: Data Data Completed and Pending Completed studies during hospitalization: Ordering Physician: Milady Raymond M.D. Date of Service: 08/30/23 Procedure(s): XR chest 2V Accession Number(s): [id number] cc: Abebe Cárdenas M.D.; Milady Raymond M.D.~ For Patients: As a result of the 21st Century Cures Act, medical imaging exams and procedure reports are released immediately into your electronic medical record. You may view this report before your referring provider. If you have questions, please contact your health care provider. Indication: Week Technique: PA and lateral views of the chest. Comparison: None. Findings: Left chest AICD with right atrial and biventricular leads. Mildly enlarged cardiomediastinal silhouette with calcified aortic knob. Mild interstitial prominence. Mild bibasilar opacities. No pleural effusions or visualized pneumothorax. Moderate multilevel degenerative changes of the visualized spine. Impression: 1. Mild bibasilar opacities are favored to represent atelectasis given low lung volumes. 2. Mild interstitial prominence may represent senescent change or mild pulmonary edema. Dictated by Willy Simmons MD @ 08/30/2023 4:06:16 PM (Electronically Signed) Ordering Physician: Gwen Meza M.D. Date of Service: 08/31/23 Procedure(s): XR chest 1V portable Accession Number(s): [id number] cc: Gwen Meza M.D.; Abebe Cárdenas M.D.~ For Patients: As a result of the Cures Act, medical imaging exams and procedure reports are released immediately into your electronic medical record. You may view this report before your referring provider. If you have questions, please contact your health care provider. Indication: Follow-up atelectasis Comparison: Two-view chest August 30, 2023 Technique: Single AP view chest Findings: There is hyperinflation and chronic interstitial change. There are increasing interstitial and airspace opacities of the muey-dfultbu-umqo-right lower lobes which may represent worsening atelectasis versus infiltrates. There is no pneumothorax. The cardiac silhouette is mildly prominent with a biventricular ICD. The bony thorax is grossly intact. Impression: Increasing interstitial and airspace opacities within the bscz-tzxkipu-hjbh-right lower lobes likely representing worsening atelectasis versus infiltrates. Dictated by Matthew Daly MD @ 08/31/2023 11:37:10 AM (Electronically Signed) Ordering Physician: Nory Portillo M.D. Date of Service: 09/01/23 Procedure(s): CT head/brain wo con Accession Number(s): [id number] cc: Abebe Cárdenas M.D.; Nory Portillo M.D.~ For Patients: As a result of the Cures Act, medical imaging exams and procedure reports are released immediately into your electronic medical record. You may view this report before your referring provider. If you have questions, please contact your health care provider. INDICATION: Ataxia TECHNIQUE: Noncontrast axial CT of the head. Coronal and sagittal reformats. Bone and soft tissue algorithms. COMPARISON: No relevant comparison studies available at this institution. FINDINGS: Generalized cerebral volume loss, most pronounced throughout the bilateral frontal lobes. No acute intracranial hemorrhage or abnormal extra-axial fluid collection, midline shift or herniation. Preserved mcgraw-white matter differentiation. Unremarkable white matter attenuation. Empty sella configuration. Calcific intracranial atherosclerotic plaquing. Intact calvarium. Clear visualized paranasal sinuses and mastoid air cells. Bilateral lens implants. IMPRESSION: 1. No CT evidence of acute intracranial abnormality. 2. Moderate, bilateral frontal lobe predominant cerebral volume loss. Please note that all CT scans at this facility use dose modulation, iterative reconstruction, and/or weight-based dosing when appropriate to reduce radiation dose to as low as reasonably achievable. Dictated by Hannah Silva MD @ 09/01/2023 1:12:46 PM (Electronically Signed) Labs on day of discharge: Preliminary micro results at discharge 09/02/23 05:27 Urine Culture - Preliminary Urine,Clean Catch NO GROWTH AFTER 24 HOURS Discharge Plan Discharge Disposition: Home, Self-Care Date of Admission: 08/30/23 17:30 Attending Provider on Discharge: Nory Portillo Primary Care Provider: Abebe Cárdenas Condition: Stable Anticipated Discharge Date/Time: 09/03/23 12:58 Discharge Medications: New divalproex 250 mg Tablet Extended Release 24 Hr 250 mg PO DAILY@1500 PRN (Reason: Agitation) Qty: 30 0RF Continued sertraline 50 mg tablet 75 mg PO DAILY acetaminophen [Tylenol Extra Strength] 500 mg tablet 1,000 mg PO BID PRN pravastatin 80 mg tablet 80 mg PO HS Hold Instructions: stopped at PCP's office 08/02/23 multivitamin [Daily Multi-Vitamin] Tablet 1 tab PO DAILY amiodarone 200 mg tablet 200 mg PO HS levothyroxine 75 mcg tablet 75 mcg PO DAILY Entresto 24-26 mg tablet 1 tab PO BID metoprolol succinate 25 mg tablet extended release 24 hr 25 mg PO HS cyanocobalamin (vitamin B-12) 1,000 mcg capsule 1,000 mcg PO DAILY cholecalciferol (vitamin D3) [Vitamin D3] 125 mcg (5,000 unit) tablet 5,000 unit PO DAILY rivastigmine tartrate 3 mg capsule 6 mg PO BID PreserVision AREDS-2 250-90-40-1 mg capsule 1 tab PO DAILY calcium carbonate [Calcium 600] 600 mg calcium (1,500 mg) tablet 600 mg PO DAILY polyethylene glycol 3350 [Miralax] 17 gram/dose powder 17 g PO DAILY PRN Metamucil 3.4 gram/5.4 gram powder 1 tbsp PO BID PRN Rx Instructions: mix into at least 8 oz of water or juice before administering Probacap 10 billion cell capsule 10,000 mmu cells PO DAILY sennosides-docusate sodium [Stool Softener-Laxative] 8.6-50 mg Tablet 2 tab PO BID Qty: 60 0RF mometasone 50 mcg/actuation spray,non-aerosol 2 spray intranasal DAILY PRN (Reason: nasal congestion) Qty: 17 0RF Rx Instructions: administer into each nostril melatonin 3 mg Tablet 3 mg PO HS Qty: 30 0RF Changed quetiapine 25 mg tablet 12.5 mg PO HS Qty: 15 0RF Rx Instructions: 1/2-1 tab po HS prn, up to BID as well for agitation or hallucinations Held eplerenone 25 mg tablet 12.5 mg PO DAILY Hold Instructions: Resume on 09/10/23. See PCP before restarting Discontinued tamsulosin 0.4 mg capsule 0.4 mg PO Q24H Discharge Orders: Discharge Order (Routine); Ordered 09/03/23 Ordered By: Nory Portillo Activity Level: Up with assist and Use Walker Discharge Diet: Regular Follow Up Appointments: Abebe Cárdenas MD [Primary Care Provider] - (1 week) Forms: [employer] Info Instructions
[2023-09-03 13:11] VITALS: BP 134/79; PULSE 73; RESP 20; TEMP 36.6; O2SAT 92
--- NOTE | 2023-09-03 14:26 | PC.SOCIAL ---
Discharge planning- Per therapy, patient is near baseline. Met with patient's son, Néstor, and discussed discharge plans. Discussed that since patient is ambulating long distances and improving it is likely that [facility] will not prior auth a SNF for rehab. Informed that per MD, patient is medically cleared for discharge. Discussed the option of patient returning home with home care in place for PT and OT. Patient's son is agreeable to take patient home today at 4:00 pm. Patient's son informs that patient has previously had home care through [facility]. Obtained home care order from MD. Phone call to [facility] care at [phone]. [facility] informed that they can accept referral for home care. Faxed referral to [phone]. Will continue to follow up with [facility] to get services in place. Provided update to MD and charge nurse.
--- NOTE | 2023-09-03 17:44 | PC.NURSE ---
Discharge - Pt alert, oriented to self and place. Able to follow direction with assistance and repetition. Standby assist with walker/gait belt, easily directed. Pt incontinent of bowel and bladder during shift. Denied pain, SOB, N/V. Tolerating RA and regular diet/fluids. Family at bedside during day. Discharge instructions given to pt and family member with questions answered by RN. Pt and family member verbalized understanding. Pt d/c to home via wheelchair with son at approximately 1641.
--- NOTE | 2023-09-04 16:51 | PC.SOCIAL ---
Made several follow up phone calls to [facility] due to referral information not going through via fax. Home care will call this worker back. Patient has had [facility] services in the past. Phone call to [facility] and they will assess. Faxed home care referral to [phone]. Social work will continue to follow up on home care services.
--- NOTE | 2023-09-05 11:43 | PC.SOCIAL ---
Received a phone call from Ana Paula Lay at [facility] at [phone]. Ana Paula provides two fax numbers to send the referral for home care ([phone] and alternative number [phone]) and provided an e-mail to secure email the referral if the fax numbers do not work. Ana Paula's e-mail is [email or web address]. Faxed referral to both numbers and the faxes did not go through. Sent a secure e-mail to Ana Paula at [facility] providing the referral packet and discharge orders. Requested that Ana Paula call social work if any other information is needed. Confirmed that [facility] will open for home care services and can be at the patient's home tomorrow (09/06/23). Phone call to patient's son to provide update. Patient's son had some questions regarding antibiotics that he did not receive prescriptions for upon discharge. Informed patient's son that he could speak with the charge nurse, transferred call to charge nurse. Will follow up as needed.
== END 2023-09-03 16:41 | disposition home or self-care (01) ==
LOC: ED 17:01 → MEDSURG 19:37
PROVIDERS: Family Medicine; Admitting Provider Physician Assistant; Emergency Provider Family Medicine; PCP Family Medicine; Visit Provider Family Medicine
DX: R53.1 Weakness (principal); E87.1 Hypo-osmolality and hyponatremia; E87.5 Hyperkalemia; R41.0 Disorientation, unspecified; F03.90 Unspecified dementia, unspecified severity, without behavioral disturbance, psychotic disturbance, mood disturbance, and anxiety; I95.1 Orthostatic hypotension; D72.829 Elevated white blood cell count, unspecified; R17 Unspecified jaundice; R32 Unspecified urinary incontinence; I11.0 Hypertensive heart disease with heart failure; I50.20 Unspecified systolic (congestive) heart failure; E27.40 Unspecified adrenocortical insufficiency; I48.0 Paroxysmal atrial fibrillation; R60.0 Localized edema; E03.9 Hypothyroidism, unspecified; I44.7 Left bundle-branch block, unspecified; G47.33 Obstructive sleep apnea (adult) (pediatric); J98.11 Atelectasis; R27.0 Ataxia, unspecified; H90.3 Sensorineural hearing loss, bilateral; Z90.49 Acquired absence of other specified parts of digestive tract; Z98.49 Cataract extraction status, unspecified eye; Z87.891 Personal history of nicotine dependence; Z87.19 Personal history of other diseases of the digestive system; Z87.81 Personal history of (healed) traumatic fracture; Z95.810 Presence of automatic (implantable) cardiac defibrillator; Z98.890 Other specified postprocedural states
CPT/HCPCS: 36415; 51798; 70450; 71045; 71046; 80048; 80053; 80076; 81001; 83605; 83735; 83880; 84484; 85025; 86140; 87086; 87631; 93005; 94761; 96361; 96365; 96366; 96367; 97110; 97116; 97162; 97165; 97530; 97535; 99215; 99284; 99285; G0378; G0427; A9153; A9270; J0696; J2543; J7030

== ENCOUNTER 2023-11-21 16:57 | Emergency (ER) | payer OTHER, SELFPAY ==
--- NOTE | 2023-11-21 | CRLHL7_ITS ---
For Patients: As a result of the Century Cures Act, medical imaging exams and procedure reports are released immediately into your electronic medical record. You may view this report before your referring provider. If you have questions, please contact your health care provider. INDICATION: Left femoral pain after fall COMPARISON: September 25, 2022 CT of the pelvis TECHNIQUE: CT of the left hip without intravenous contrast. FINDINGS: Diffuse osseous demineralization. Mild degenerative change of the sacroiliac joints and pubic symphysis. Partially imaged right proximal femoral dynamic hip screw. Vpri-yh-tbwuqygi degenerative change of the hips. No acute displaced fracture is identified. There are atherosclerotic vascular calcifications. Tiny fat containing left inguinal hernia and/or lipomatosis of the spermatic cord. Focal mild fat stranding within the subcutaneous fat of the posterolateral left hip. IMPRESSION: No acute displaced fracture is identified. Focal mild fat stranding within the subcutaneous fat of the left posterolateral hip may represent dependent edema or a contusion. Aigr-hn-skaqsfcp degenerative change of the left hip. Please note that all CT scans at this facility use dose modulation, iterative reconstruction, and/or weight-based dosing when appropriate to reduce radiation dose to as low as reasonably achievable. Dictated by Dale El MD @ 11/21/2023 7:35:01 PM (Electronically Signed)
[2023-11-21 17:17] VITALS: BP 135/77; PULSE 69; RESP 18; TEMP 37
--- NOTE | 2023-11-21 18:23 | CRLHL7_ITS ---
For Patients: As a result of the Century Cures Act, medical imaging exams and procedure reports are released immediately into your electronic medical record. You may view this report before your referring provider. If you have questions, please contact your health care provider. INDICATION: Fall, hit head. TECHNIQUE: CT head without contrast. COMPARISON: 10/27/2021. FINDINGS: Brain parenchyma, CSF spaces, and extra-axial spaces: Moderate global brain parenchymal volume loss with commensurate sulcal and ventricular enlargement. The mcgraw-white differentiation is normal. No sign of mass, hemorrhage, or midline shift. No hydrocephalus. No extra-axial fluid collection. Skull base and calvarium: The visualized paranasal sinuses demonstrate no acute or significant findings. The mastoid air cells are clear. Bilateral lens replacement. No skull fracture. IMPRESSION: No evidence of an acute intracranial abnormality. Please note that all CT scans at this facility use dose modulation, iterative reconstruction, and/or weight-based dosing when appropriate to reduce radiation dose to as low as reasonably achievable. Dictated by Catarino Santacruz MD @ 11/21/2023 8:13:54 PM (Electronically Signed)
--- NOTE | 2023-11-21 18:23 | CRLHL7_ITS ---
For Patients: As a result of the Cures Act, medical imaging exams and procedure reports are released immediately into your electronic medical record. You may view this report before your referring provider. If you have questions, please contact your health care provider. INDICATION: Fall, hit head. TECHNIQUE: CT cervical spine without contrast. COMPARISON: 10/27/2021. FINDINGS: Vertebrae: Alignment is normal. There are no fractures or suspicious bony lesions. Discs and facet joints: There are degenerative disc changes most severe at C6-7. There are multilevel degenerative changes in the facets. Extraspinal findings: Paraspinous soft tissues are unremarkable. IMPRESSION: 1. No sign of acute injury. 2. Multilevel degenerative spondylosis. Please note that all CT scans at this facility use dose modulation, iterative reconstruction, and/or weight-based dosing when appropriate to reduce radiation dose to as low as reasonably achievable. Dictated by Catarino Santacruz MD @ 11/21/2023 8:17:29 PM (Electronically Signed)
--- NOTE | 2023-11-21 18:23 | CRLHL7_ITS ---
For Patients: As a result of the Cures Act, medical imaging exams and procedure reports are released immediately into your electronic medical record. You may view this report before your referring provider. If you have questions, please contact your health care provider. INDICATION: Fall, rule out fracture. TECHNIQUE: CT chest without contrast. COMPARISON: None. FINDINGS: Lungs and pleura: Scattered fibrotic changes throughout the lungs, greatest within the posterior costophrenic angles, where there is also honeycombing. Mild centrilobular emphysema. No discrete suspicious nodule. Left apical pleural-parenchymal scarring. Left upper lobe calcified granuloma. No pleural effusions, pleural thickening, or pneumothorax. Heart and vasculature: Cardiomegaly. Coronary artery and thoracic aorta atherosclerotic calcification. Dilatation of the ascending aorta measuring 4.4 cm. Normal caliber main pulmonary artery. No pericardial effusion. Lymph nodes/mediastinum: No mediastinal, hilar, or axillary adenopathy. Calcified left hilar lymph node. Chest wall: 3 lead left chest cardiac device with the leads terminating in the right atrium, right ventricle, and coronary sinus. Upper abdomen: No acute or significant findings. Bones: Colonic mild T12 compression fracture. No acute findings. Otherwise, unremarkable for age. IMPRESSION: 1. No acute findings within the chest. No acute bony abnormality. 2. Pulmonary findings consistent with UIP pattern. 3. Dilated ascending aorta measuring 4.4 cm. 4. Other nonacute findings, as above. Please note that all CT scans at this facility use dose modulation, iterative reconstruction, and/or weight-based dosing when appropriate to reduce radiation dose to as low as reasonably achievable. Dictated by Catarino Santacruz MD @ 11/21/2023 8:23:57 PM (Electronically Signed)
--- NOTE | 2023-11-21 19:19 | ED_ITS ---
HPI - Weakness General Date Seen: 11/21/23 Chief complaint: Weakness Stated complaint: Fell twice, dizzy, cough, weak, leaning Time Seen by Provider: 11/21/23 18:14 Source: patient and family Mode of arrival: wheelchair Limitations: no limitations History of Present Illness HPI Narrative: Patient is an 88-year-old male here with his son for weakness. He has a history of dementia. His son states that over the past week to 10 days he has been having increased weakness. He states that they have constant 247 care for him and they have noticed he has been gradually getting weaker past week and is now bleeding more to his left side whenever he gets up to move around. He is always an assist to 1 but seems to be have your system 1 at this time. States same symptoms occurred when he had pneumonia in the past. He also states the patient seems more confused than normal. Patient does have baseline dementia. Patient denies any pain at this time. His son states patient has had a very raspy cough and sounds very congested. No other concerns noted Related Data Home Medications ?Medication ?Instructions ?Recorded ?Confirmed amiodarone 200 mg tablet 200 mg PO HS 10/27/21 11/21/23 eplerenone 25 mg tablet 12.5 mg PO DAILY 10/27/21 11/21/23 multivitamin (Daily Multi-Vitamin 1 tab PO DAILY 10/27/21 08/30/23 tablet) Lactobacillus acidophilus 10 10,000 mmu cells PO DAILY 09/25/22 08/30/23 billion cell capsule (Probacap) calcium carbonate (Calcium 600) 600 mg PO DAILY 09/25/22 11/21/23 cholecalciferol (vitamin D3) 125 5,000 unit PO DAILY 09/25/22 11/21/23 mcg (5,000 unit) tablet (Vitamin D3) cyanocobalamin (vitamin B-12) 1,000 mcg PO DAILY 09/25/22 11/21/23 1,000 mcg capsule metoprolol succinate 25 mg 25 mg PO HS 09/25/22 11/21/23 tablet,extended release 24 hr polyethylene glycol 3350 17 17 g PO DAILY PRN 09/25/22 08/30/23 gram/dose oral powder (Miralax) psyllium husk 3.4 gram/5.4 gram 1 tbsp PO BID PRN 09/25/22 08/30/23 oral powder (Metamucil) rivastigmine tartrate 3 mg capsule 6 mg PO BID 09/25/22 11/21/23 sacubitril 24 mg-valsartan 26 mg 1 tab PO BID 09/25/22 11/21/23 tablet (Entresto) vit C 250 mg-vit E 90 mg-zinc 40 1 tab PO DAILY 09/25/22 08/30/23 mg-copper 1 [id number] capsule (PreserVision AREDS-2) sertraline 50 mg tablet 75 mg PO DAILY 11/07/22 08/30/23 acetaminophen 500 mg tablet 1,000 mg PO BID PRN 12/20/22 08/30/23 (Tylenol Extra Strength) levothyroxine 75 mcg tablet 75 mcg PO DAILY 08/30/23 08/30/23 divalproex 125 mg tablet,delayed 125 mg PO DAILY 11/21/23 11/21/23 release levothyroxine 25 mcg tablet 25 mcg PO QAM 11/21/23 11/21/23 levothyroxine 50 mcg tablet 50 mcg PO DAILY 11/21/23 11/21/23 pravastatin 80 mg tablet 80 mg PO DAILY 11/21/23 11/21/23 sertraline 100 mg tablet 100 mg PO DAILY 11/21/23 11/21/23 Previous Rx's ?Medication ?Instructions ?Recorded sennosides 8.6 mg-docusate sodium 2 tab PO BID #60 tabs 10/01/22 50 mg tablet (Stool Softener-Laxative) melatonin 3 mg tablet 3 mg PO HS #30 tabs 10/02/22 mometasone 50 mcg/actuation nasal 2 spray intranasal DAILY PRN nasal 10/02/22 spray congestion #17 grams divalproex 250 mg tablet,delayed 250 mg PO DAILY #90 tabs 09/05/23 release Allergies Allergy/AdvReac Type Severity Reaction Status Date / Time pollen extracts Allergy Unknown Unverified 12/20/22 10:41 bupropion [From Wellbutrin] Allergy Verified 12/20/22 10:41 tamsulosin AdvReac Mild Verified 08/30/23 20:16 Review of Systems Status of ROS: Reports: unobtainable due to medical condition [facility] Medical History Hypothyroidism ?E03.9 - Hypothyroidism, unspecified (ICD-10) Dementia ?F03.90 - Unspecified dementia without behavioral disturbance (ICD-10) Heart failure with reduced ejection fraction ?I50.20 - Unspecified systolic (congestive) heart failure (ICD-10) Closed subcapital fracture of right femur ?S72.011A - Unspecified intracapsular fracture of right femur, initial encounter for closed fracture (ICD-10) Durable power of regulatory attorney in chart Fall ?W19.XXXA - Unspecified fall, initial encounter (ICD-10) Urinary retention ?R33.9 - Retention of urine, unspecified (ICD-10) Recurrent falls ?R29.6 - Repeated falls (ICD-10) Major depressive disorder in partial remission ?F32.4 - Major depressive disorder, single episode, in partial remission (ICD-10) Obstructive sleep apnea on CPAP ?G47.33 - Obstructive sleep apnea (adult) (pediatric) (ICD-10) ICD (implantable cardioverter-defibrillator) in place ?Z95.810 - Presence of automatic (implantable) cardiac defibrillator (ICD-10) Paroxysmal atrial fibrillation ?I48.0 - Paroxysmal atrial fibrillation (ICD-10) Prolonged QT interval ?R94.31 - Abnormal electrocardiogram [ECG] [EKG] (ICD-10) Thrombocytopenia ?D69.6 - Thrombocytopenia, unspecified (ICD-10) Thoracic aortic aneurysm, without rupture, unspecified ?I71.20 - Thoracic aortic aneurysm, without rupture, unspecified (ICD-10) Nonischemic dilated cardiomyopathy ?I42.0 - Dilated cardiomyopathy (ICD-10) Left bundle branch block (LBBB) ?I44.7 - Left bundle-branch block, unspecified (ICD-10) Orthostasis ?I95.1 - Orthostatic hypotension (ICD-10) Benign prostatic hyperplasia with lower urinary tract symptoms ?N40.1 - Benign prostatic hyperplasia with lower urinary tract symptoms (ICD- 10) Mixed hyperlipidemia ?E78.2 - Mixed hyperlipidemia (ICD-10) Sensorineural hearing loss (SNHL), bilateral ?H90.3 - Sensorineural hearing loss, bilateral (ICD-10) Adjustment disorder with mixed anxiety and depressed mood ?F43.23 - Adjustment disorder with mixed anxiety and depressed mood (ICD-10) 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.0 - Latent syphilis, unspecified as early or late (ICD-10) Idiopathic peripheral neuropathy ?G60.9 - Hereditary and idiopathic neuropathy, unspecified (ICD-10) Essential hypertension ?I10 - Essential (primary) hypertension (ICD-10) Functional gait abnormality ?R26.89 - Other abnormalities of gait and mobility (ICD-10) Pacemaker ?Z95.0 - Presence of cardiac pacemaker (ICD-10) Cardiac abnormality ?Q24.9 - Congenital malformation of heart, unspecified (ICD-10) Surgical History Status post-operative repair of hip fracture ?Z98.890 - Other specified postprocedural states (ICD-10) ?Z87.81 - Personal history of (healed) traumatic fracture (ICD-10) Status post cataract surgery ?Z98.49 - Cataract extraction status, unspecified eye (ICD-10) Status post hemorrhoidectomy ?Z98.890 - Other specified postprocedural states (ICD-10) ?Z87.19 - Personal history of other diseases of the digestive system (ICD-10) History of esophagogastroduodenoscopy (EGD) ?Z98.890 - Other specified postprocedural states (ICD-10) S/P colonoscopy ?Z98.890 - Other specified postprocedural states (ICD-10) Status post appendectomy ?Z90.49 - Acquired absence of other specified parts of digestive tract (ICD- 10) Status post biventricular cardiac pacemaker insertion ?Z95.0 - Presence of cardiac pacemaker (ICD-10) Social History Narrative: . Lives with in assisted living facility with 24/7 care at home. Retired [employer]. Designates son, Roldan, as POA for health if needed, cell phone [phone]. Dr. Cárdenas is his PCP. Would like full medical treatment for medical manageme nt, but no CPR/intubation. What is your current living situation?: I presently have a place to live Problems where you live: no known problems Problems where you live details: None In the past 12 months, utilities in danger of being shut off: no In past 12 months, lack of transportation kept you from medical appts, meetings, work, or getting things needed for daily living: unable to answer In the past 12 mos, have been you worried that your food would run out before you had money to buy more?: unable to answer In the past 12 mos, the food you bought just didn't last and you didn't have money to buy more?: unable to answer Highest level of school completed/degree received: Master's degree Smoking Status: Former smoker Do you use any of these nicotine containing products: None Second hand tobacco smoke exposure: No How often do you have a drink containing alcohol: never AUDIT-C Alcohol total score: 0 Non-prescribed substance use: denies use Caffeine: Yes How often does anyone, including family, friends and others, physically hurt you : never How often does anyone, including family, friends and others, insult or talk down to you: never How often does anyone, including family, friends and others, threaten you with harm: never How often does anyone, including family, friends and others, scream or curse at you: never service: No Exam Narrative: Exam Narrative: Const: Well-nourished, Well-developed, in mild distress Eyes: PERRL, no conjunctival injection, and symmetrical lids HENT: Atraumatic external nose and ears. Moist mucous membranes. Neck: Symmetric, trachea midline, No thyromegaly. CVS: RRR, No murmurs or gallops. Peripheral pulses 2+ and equal in all extremities RESP: Unlabored respiratory effort. Clear to auscultation bilaterally. GI: Nontender/Nondistended, No rebound or guarding. MSK:Extremities w/o deformity, Normal Active ROM Skin: Warm, Dry. No rashes or lesions. Neuro: Normal Muscle tone, No focal neurological deficits. Psych: Awake, Alert, & Oriented x3. Appropriate mood and affect. Const: Vital Signs, click to edit/add: Vital Signs - 24 hr 11/21/23 17:17 Temperature 98.6 F Pulse Rate [Right Pulse Oximeter] 69 Respiratory Rate 18 Blood Pressure [Ri ght Upper Arm] 135/77 Oxygen Delivery Me thod Room Air Course Vital Signs Vital signs: Initial Vital Signs Temperature 98.6 F 11/21/23 17:17 Temperature Source Temporal Artery Scan 11/21/23 17:17 Pulse Rate 69 11/21/23 17:17 Respiratory Rate 18 11/21/23 17:17 Blood Pressure 135/77 11/21/23 17:17 Blood Pressure Mean 96 11/21/23 17:17 Blood Pressure Position Sitting 11/21/23 17:17 Oxygen Delivery Method Room Air 11/21/23 17:17 Vital Signs Temperature 98.6 F 11/21/23 17:17 Pulse Rate 69 11/21/23 17:17 Respiratory Rate 18 11/21/23 17:17 Blood Pressure 135/77 11/21/23 17:17 Oxygen Delivery Method Room Air 11/21/23 17:17 Temperature 98.6 F 11/21/23 17:17 Pulse Rate 69 11/21/23 17:17 Respiratory Rate 18 11/21/23 17:17 Blood Pressure 135/77 11/21/23 17:17 Oxygen Delivery Method Room Air 11/21/23 17:17 Medications Administered Medications: Discontinued Medications Generic Name Dose Route Start Last Admin Trade Name Freq PRN Reason Stop Dose Admin Lactated Ringer's 1,000 mls @ 1,000 mls/hr 11/21/23 18:23 11/21/23 20:43 Lactated Ringers 1000 Ml IV 11/21/23 19:22 Infused .Q1H ONE Infusion MDM - Weakness MDM Narrative Medical decision making narrative: Patient is an 88-year-old male presenting to emergency department for cough, weakness, altered mental status. Based on the history it seems most likely he is developing another pneumonia. Will do a CT scan the chest better evaluation of this. He is not tachycardic or hypoxic at this time so I do not believe he needs a CTA to look for PE. Will do an EKG and troponins for possible signs of ACS. Will also do a COVID and flu. CBC, CMP, magnesium, urinalysis all ordered. He does not meet SIRS criteria will get a L of lactated Ringer's. CT scans of the head, cervical spine, hip order to look for fractures from his falls or other abnormalities. Chest CT order to look for renal lung issues. Lab work all returned showing no concerning abnormalities. COVID/flu/RSV is negative. Troponin within normal limits an EKG shows no concerning findings. He is otherwise doing well at this time. CT scans of the head and cervical spine along with hip showed no acute abnormalities. Does appear to be some bruising where his pain is. 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 The still possibility there was pneumonia that we just do not see yet and he was diagnosed with pneumonia last someone at the symptoms so I but we will put him on antibiotics. I talked to the family and they prefer discharge versus admission at this time. They have 247 care for him and seems very involved and I am comfortable with this plan. Augmentin prescribed through [facility] Lab Data Labs: Lab Results 11/21/23 11/21/23 11/21/23 Range/Units 18:23 19:08 19:35 WBC 9.00 (4.50-11.00) K/uL RBC 3.53 L (4.30-5.90) m/uL Hgb 11.1 L (13.5-17.5) gm/dL Hct 34.4 L (37.0-53.0) % MCV 98 (80-100) fL MCH 31 (26-34) pg MCHC 32 (32-36) gm/dL RDW Coeff of Claudia 13.6 (11.5-15.5) % Plt Count 167 (140-440) K/uL Neut % (Auto) 67.8 (42.0-72.0) % Lymph % (Auto) 19.3 L (20-44) % Bracken % (Auto) 11.0 (0.0-11.0) % Eos % (Auto) 1.6 (0.0-7.0) % Baso % (Auto) 0.2 (0.0-3.0) % Neut # (Auto) 6.10 (1.7-7.0) K/uL Lymph # (Auto) 1.70 (0.90-2.90) K/uL Bracken # (Auto) 1.00 H (0.00-0.90) K/UL Eos # (Auto) 0.14 (0.00-0.50) K/uL Baso # (Auto) 0.02 (0.00-0.30) K/uL Abs Immat Gran (auto) 0.01 (0.00-0.30) K/uL Imm/Tot Granulo (auto) 0.1 % Sodium 132 L (135-149) mmol/L Potassium 4.6 (3.6-5.1) mmol/L Chloride 103 (96-114) mmol/L Carbon Dioxide 24 (20-32) mmol/L Anion Gap 5 L (7-15) mEq/L BUN 22 (7-30) mg/dL Creatinine 0.9 (0.5-1.5) mg/dL Estimated GFR 83 ml/min Glucose 91 (60-115) mg/dL Calcium 9.1 (8.4-10.6) mg/dL Magnesium 2.3 (1.5-2.6) mg/dL Total Bilirubin 0.3 (0.1-1.5) mg/dL AST 28 (12-35) U/L ALT 14 (4-50) U/L Alkaline Phosphatase 45 (40-150) U/L Total Protein 7.3 (6.0-8.3) g/dL Albumin 4.0 (3.3-5.0) g/dL SARS-CoV-2 (PCR) Negative SARS-CoV-2 (Negative) Influenza Type A (PCR) Negative PCR FLU A (Negative) Influenza Type B (PCR) Negative PCR FLU B (Negative) POC Troponin I 0.01 (0.01-0.04) ng/ml Imaging Data CT scan head: Attestation: I have reviewed the pertinent imaging results. Radiologist's impression: No evidence of an acute intracranial abnormality. Please note that all CT scans at this facility use dose modulation, iterative reconstruction, and/or weight-based dosing when appropriate to reduce radiation dose to as low as reasonably achievable. Dictated by Catarino Santacruz MD @ 11/21/2023 8:13:[address] scan cervical spine: Attestation: I have reviewed the pertinent imaging results. Radiologist's impression: 1. No sign of acute injury. 2. Multilevel degenerative spondylosis. Please note that all CT scans at this facility use dose modulation, iterative reconstruction, and/or weight-based dosing when appropriate to reduce radiation dose to as low as reasonably achievable. Dictated by Catarino Santacruz MD @ 11/21/2023 8:17:[address] scan hip: Attestation: I have reviewed the pertinent imaging results. Radiologist's impression: No acute displaced fracture is identified. Focal mild fat stranding within the subcutaneous fat of the left posterolateral hip may represent dependent edema or a contusion. [id number] degenerative change of the left hip. Please note that all CT scans at this facility use dose modulation, iterative reconstruction, and/or weight-based dosing when appropriate to reduce radiation dose to as low as reasonably achievable. Dictated by Dale El MD @ 11/21/2023 7:35:[address] scan chest: Attestation: I have reviewed the pertinent imaging results. Radiologist's impression: 1. No acute findings within the chest. No acute bony abnormality. 2. Pulmonary findings consistent with UIP pattern. 3. Dilated ascending aorta measuring 4.4 cm. 4. Other nonacute findings, as above. Please note that all CT scans at this facility use dose modulation, iterative reconstruction, and/or weight-based dosing when appropriate to reduce radiation dose to as low as reasonably achievable. Dictated by Catarino Santacruz MD @ 11/21/2023 8:23:57 PM ECG Data Attestation: I personally reviewed and interpreted this ECG as follows: Prior ECG tracings: available for review Interpretation: Atrial paced rhythm with a rate of 72 beats per minute, left axis deviation, no ST or T-wave abnormalities. Appears similar previous EKG on file Discharge Plan Discharge Clinical Impression: Usual interstitial pneumonitis Pneumonia Qualifiers: Pneumonia type: due to unspecified organism Laterality: unspecified laterality Lung location: unspecified part of lung Qualified Code(s): J18.9 - Pneumonia, unspecified organism Patient Disposition: Home w/ Parent or Adult Condition: Stable Instructions: Pneumonia (ED) Additional Instructions: I recommend following up with your primary care provider about the usual interstitial pneumonia diagnosis. I cannot say for certain the he has infectious pneumonia but I will treat him with antibiotics. His primary care provider may want him to follow up with a lung specialist. If he notice he has worsening symptoms such as difficulty breathing, hypoxia, continued decline in his weakness or any other concerning finding return for re-evaluation. Prescriptions: No Action sertraline 50 mg tablet 75 mg PO DAILY acetaminophen [Tylenol Extra Strength] 500 mg tablet 1,000 mg PO BID PRN multivitamin [Daily Multi-Vitamin] Tablet 1 tab PO DAILY eplerenone 25 mg tablet 12.5 mg PO DAILY Hold Instructions: Resume on 09/10/23. See PCP before restarting amiodarone 200 mg tablet 200 mg PO HS levothyroxine 75 mcg tablet 75 mcg PO DAILY divalproex 250 mg tablet,delayed release (DR/EC) 250 mg PO DAILY Qty: 90 2RF Rx Instructions: daily at 1500 Entresto 24-26 mg tablet 1 tab PO BID metoprolol succinate 25 mg tablet extended release 24 hr 25 mg PO HS cyanocobalamin (vitamin B-12) 1,000 mcg capsule 1,000 mcg PO DAILY cholecalciferol (vitamin D3) [Vitamin D3] 125 mcg (5,000 unit) tablet 5,000 unit PO DAILY rivastigmine tartrate 3 mg capsule 6 mg PO BID PreserVision AREDS-2 250-90-40-1 mg capsule 1 tab PO DAILY calcium carbonate [Calcium 600] 600 mg calcium (1,500 mg) tablet 600 mg PO DAILY polyethylene glycol 3350 [Miralax] 17 gram/dose powder 17 g PO DAILY PRN Metamucil 3.4 gram/5.4 gram powder 1 tbsp PO BID PRN Rx Instructions: mix into at least 8 oz of water or juice before administering Probacap 10 billion cell capsule 10,000 mmu cells PO DAILY sennosides-docusate sodium [Stool Softener-Laxative] 8.6-50 mg Tablet 2 tab PO BID Qty: 60 0RF mometasone 50 mcg/actuation spray,non-aerosol 2 spray intranasal DAILY PRN (Reason: nasal congestion) Qty: 17 0RF Rx Instructions: administer into each nostril melatonin 3 mg Tablet 3 mg PO HS Qty: 30 0RF sertraline 100 mg tablet 100 mg PO DAILY levothyroxine 25 mcg tablet 25 mcg PO QAM pravastatin 80 mg tablet 80 mg PO DAILY levothyroxine 50 mcg tablet 50 mcg PO DAILY divalproex 125 mg tablet,delayed release (DR/EC) 125 mg PO DAILY Follow Up/Referrals: Abebe Cárdenas MD [Primary Care Provider] - Stand Alone Forms: [facility] Info Instructions
[2023-11-21] MEDS: LACTATED RINGERS 1000 ML 1,000 ML IV (19:48)
--- NOTE | 2023-11-21 19:48 | ED.NURSE ---
Patient is very sensitive to touch and temperature and has dementia so keeping monitoring devices on him is causing agitation and discomfort. EKG was performed but other monitors removed for patient comfort. MD BRICENO'd administration of home medications. Melatonin and Depakote were administered at 1945.
[2023-11-21 19:54] LABS: Troponin, Point-of-Care* 0.01 ng/ml (0.01-0.04)
[2023-11-21 20:06] LABS: Basophils Absolute Auto 0.02 K/uL (0.00-0.30); Basophils Percent Auto 0.2 % (0.0-3.0); Eosinophils Absolute Auto 0.14 K/uL (0.00-0.50); Eosinophils Percent Auto 1.6 % (0.0-7.0); Hematocrit 34.4 % (37.0-53.0); Hemoglobin* 11.1 gm/dL (13.5-17.5); Immature Granulocytes Abs Auto 0.01 K/uL (0.00-0.30); Immature Granulocytes Pct Auto 0.1 %; Lymphocytes Percent Auto 19.3 % (20-44); Mean Corpuscular HGB Conc 32 gm/dL (32-36); Mean Corpuscular Hemoglobin 31 pg (26-34); Mean Corpuscular Volume 98 fL (80-100); Neutrophils Percent Auto 67.8 % (42.0-72.0); Platelet Count* 167 K/uL (140-440); RDW Coefficient of Variation % 13.6 % (11.5-15.5); Red Blood Count 3.53 m/uL (4.30-5.90)
[2023-11-21 20:09] LABS: Slide Review Reflex No
[2023-11-21 20:17] LABS: Chloride* 103 mmol/L (96-114); Potassium* 4.6 mmol/L (3.6-5.1); Sodium* 132 mmol/L (135-149)
[2023-11-21 20:19] LABS: Creatinine* 0.9 mg/dL (0.5-1.5); Estimated Glomerular Filt Rate 83 ml/min
[2023-11-21 20:20] LABS: Alanine Aminotransferase* 14 U/L (4-50); Alkaline Phosphatase* 45 U/L (40-150); Anion Gap 5 mEq/L (7-15); Aspartate Amino Transferase* 28 U/L (12-35); Bilirubin Total* 0.3 mg/dL (0.1-1.5); Blood Urea Nitrogen* 22 mg/dL (7-30); Calcium* 9.1 mg/dL (8.4-10.6); Carbon Dioxide* 24 mmol/L (20-32); Glucose* 91 mg/dL (60-115); Total Protein* 7.3 g/dL (6.0-8.3)
[2023-11-21 20:21] LABS: Magnesium* 2.3 mg/dL (1.5-2.6)
[2023-11-21 20:43] LABS: PCR FLU A Negative PCR FLU A (Negative); PCR FLU B Negative PCR FLU B (Negative); SARS PCR* Negative SARS-CoV-2 (Negative)
== END 2023-11-21 21:22 | disposition home or self-care (01) ==
PROVIDERS: Emergency Provider Student in an Organized Health Care Education/Training Program; PCP Family Medicine
DX: J84.114 Acute interstitial pneumonitis (principal); J18.9 Pneumonia, unspecified organism
CPT/HCPCS: 36415; 70450; 71250; 72125; 73700; 80053; 81001; 83735; 84484; 85025; 87631; 93005; 99283; 99284; 99285; J7120

== ENCOUNTER 2024-01-19 23:08 | Outpatient (CLI) | payer OTHER, SELFPAY | END 2024-01-19 23:09 | disposition home or self-care (01) | LOC: AMB 01-22 00:13 | PROVIDERS: PCP Family Medicine; Visit Provider Emergency Medicine | DX: F03.90 Unspecified dementia, unspecified severity, without behavioral disturbance, psychotic disturbance, mood disturbance, and anxiety (principal) | CPT/HCPCS: A0998 ==

== ENCOUNTER 2024-01-20 19:52 | Outpatient (CLI) | payer OTHER, SELFPAY | END 2024-01-20 19:53 | disposition home or self-care (01) | LOC: AMB 02-01 07:53 | PROVIDERS: PCP Family Medicine; Visit Provider Family Medicine | DX: S01.01XA Laceration without foreign body of scalp, initial encounter (principal); W18.30XA Fall on same level, unspecified, initial encounter; Y92.9 Unspecified place or not applicable | CPT/HCPCS: A0425; A0427 ==

== ENCOUNTER 2024-01-20 20:22 | Emergency (ER) | payer OTHER, SELFPAY ==
[2024-01-20 20:27] VITALS: BP 121/86; PULSE 79; RESP 16; TEMP 36.6; O2SAT 99
--- NOTE | 2024-01-20 20:40 | CRLHL7_ITS ---
For Patients: As a result of the Century Cures Act, medical imaging exams and procedure reports are released immediately into your electronic medical record. You may view this report before your referring provider. If you have questions, please contact your health care provider. Indication: Fall. Technique: Noncontrast CT of the cervical spine with multiplanar reconstruction utilizing bone and soft tissue algorithms. Comparison: CT cervical spine dated 11/21/2023. Findings: No acute fracture or traumatic subluxation. No lytic or blastic lesion. Straightening of the normal cervical lordosis. Vertebral body heights are maintained. The prevertebral soft tissues are unremarkable. No high-grade spinal stenosis is identified. There is multilevel neural foraminal narrowing associated with uncovertebral and facet joint arthrosis Impression: 1. No acute fracture or traumatic subluxation. 2. Moderate cervical spondylosis with multilevel neural foraminal narrowing. Please note that all CT scans at this facility use dose modulation, iterative reconstruction, and/or weight-based dosing when appropriate to reduce radiation dose to as low as reasonably achievable. Dictated by Dmitri Mendoza MD @ 01/20/2024 9:52:31 PM (Electronically Signed)
--- NOTE | 2024-01-20 20:40 | CRLHL7_ITS ---
For Patients: As a result of the Century Cures Act, medical imaging exams and procedure reports are released immediately into your electronic medical record. You may view this report before your referring provider. If you have questions, please contact your health care provider. INDICATION: Fall, hit left side of head. TECHNIQUE: Noncontrast CT of the head with multiplanar reconstruction utilizing bone and soft tissue algorithms. COMPARISON: CT head dated 11/21/2023. FINDINGS: No acute intracranial hemorrhage. Streak artifact at the right cerebral convexity. The mcgraw-white matter interface is preserved. Similar moderate diffuse parenchymal volume loss. No ventricular obstruction. No abnormal extra-axial fluid collection. No calvarial fracture. Bilateral pseudophakia. The imaged paranasal sinuses and mastoid air cells are clear. IMPRESSION: No acute intracranial abnormality. Please note that all CT scans at this facility use dose modulation, iterative reconstruction, and/or weight-based dosing when appropriate to reduce radiation dose to as low as reasonably achievable. Dictated by Dmitri Mendoza MD @ 01/20/2024 9:44:16 PM (Electronically Signed)
--- NOTE | 2024-01-20 20:43 | ED.FALL ---
HPI - Fall General Date Seen: 01/20/24 Chief Complaint: Fall/Minor Trauma Stated Complaint: Fall Time Seen by Provider: 01/20/24 20:23 Source: family Mode of arrival: EMS History of Present Illness HPI Narrative: Patient is a 88-year-old male history of dementia presenting to emergency department after a fall. He was in the bathroom with his daughter when she stepped out when he was brushing his teeth. He was sitting in a chair at that point but is bleed he tried to get up to walk to the sink. EMS was then called to help the patient into the stretcher to bring him to the emergency department. Patient is known for frequent falls and fell yesterday also. EMS was called that time To help him up also. His son states he seems to be acting normally. No other concerns noted. Patient is unable to give me much history due to his dementia. Is Denying any pain right now. Related Data Home Medications ?Medication ?Instructions ?Recorded ?Confirmed eplerenone 25 mg tablet 12.5 mg PO DAILY 10/27/21 01/20/24 multivitamin (Daily Multi-Vitamin 1 tab PO DAILY 10/27/21 08/30/23 tablet) metoprolol succinate 25 mg 25 mg PO HS 09/25/22 01/20/24 tablet,extended release 24 hr polyethylene glycol 3350 17 17 g PO DAILY PRN 09/25/22 01/20/24 gram/dose oral powder (Miralax) psyllium husk 3.4 gram/5.4 gram 1 tbsp PO BID PRN 09/25/22 08/30/23 oral powder (Metamucil) rivastigmine tartrate 3 mg capsule 6 mg PO BID 09/25/22 11/21/23 sacubitril 24 mg-valsartan 26 mg 1 tab PO BID 09/25/22 01/20/24 tablet (Entresto) vit C 250 mg-vit E 90 mg-zinc 40 1 tab PO DAILY 09/25/22 01/20/24 mg-copper 1 [id number] capsule (PreserVision AREDS-2) sertraline 50 mg tablet 100 mg PO DAILY 11/07/22 01/20/24 acetaminophen 500 mg tablet 1,000 mg PO BID PRN 12/20/22 01/20/24 (Tylenol Extra Strength) levothyroxine 75 mcg tablet 75 mcg PO DAILY 08/30/23 01/20/24 divalproex 250 mg tablet,extended 250 mg PO DAILY PRN 01/20/24 01/20/24 release 24 hr Previous Rx's ?Medication ?Instructions ?Recorded sennosides 8.6 mg-docusate sodium 2 tab PO BID #60 tabs 10/01/22 50 mg tablet (Stool Softener-Laxative) melatonin 3 mg tablet 3 mg PO HS #30 tabs 10/02/22 mometasone 50 mcg/actuation nasal 2 spray intranasal DAILY PRN nasal 10/02/22 spray congestion #17 grams Allergies Allergy/AdvReac Type Severity Reaction Status Date / Time pollen extracts Allergy Unknown Unverified 12/20/22 10:41 bupropion (From Wellbutrin) Allergy Verified 12/20/22 10:41 ciprofloxacin Allergy Verified 01/20/24 20:32 tamsulosin AdvReac Mild Verified 08/30/23 20:16 Review of Systems Status of ROS: Reports: 10 or more systems reviewed and unremarkable except as noted in History and below [facility] Medical History Hypothyroidism ?E03.9 - Hypothyroidism, unspecified (ICD-10) Dementia ?F03.90 - Unspecified dementia without behavioral disturbance (ICD-10) Heart failure with reduced ejection fraction ?I50.20 - Unspecified systolic (congestive) heart failure (ICD-10) Closed subcapital fracture of right femur ?S72.011A - Unspecified intracapsular fracture of right femur, initial encounter for closed fracture (ICD-10) Durable power of trust and estates attorney in chart Fall ?W19.XXXA - Unspecified fall, initial encounter (ICD-10) Urinary retention ?R33.9 - Retention of urine, unspecified (ICD-10) Recurrent falls ?R29.6 - Repeated falls (ICD-10) Major depressive disorder in partial remission ?F32.4 - Major depressive disorder, single episode, in partial remission (ICD-10) Obstructive sleep apnea on CPAP ?G47.33 - Obstructive sleep apnea (adult) (pediatric) (ICD-10) ICD (implantable cardioverter-defibrillator) in place ?Z95.810 - Presence of automatic (implantable) cardiac defibrillator (ICD-10) Paroxysmal atrial fibrillation ?I48.0 - Paroxysmal atrial fibrillation (ICD-10) Prolonged QT interval ?R94.31 - Abnormal electrocardiogram [ECG] [EKG] (ICD-10) Thrombocytopenia ?D69.6 - Thrombocytopenia, unspecified (ICD-10) Thoracic aortic aneurysm, without rupture, unspecified ?I71.20 - Thoracic aortic aneurysm, without rupture, unspecified (ICD-10) Nonischemic dilated cardiomyopathy ?I42.0 - Dilated cardiomyopathy (ICD-10) Left bundle branch block (LBBB) ?I44.7 - Left bundle-branch block, unspecified (ICD-10) Orthostasis ?I95.1 - Orthostatic hypotension (ICD-10) Benign prostatic hyperplasia with lower urinary tract symptoms ?N40.1 - Benign prostatic hyperplasia with lower urinary tract symptoms (ICD-10) Mixed hyperlipidemia ?E78.2 - Mixed hyperlipidemia (ICD-10) Sensorineural hearing loss (SNHL), bilateral ?H90.3 - Sensorineural hearing loss, bilateral (ICD-10) Adjustment disorder with mixed anxiety and depressed mood ?F43.23 - Adjustment disorder with mixed anxiety and depressed mood (ICD-10) 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.0 - Latent syphilis, unspecified as early or late (ICD-10) Idiopathic peripheral neuropathy ?G60.9 - Hereditary and idiopathic neuropathy, unspecified (ICD-10) Essential hypertension ?I10 - Essential (primary) hypertension (ICD-10) Functional gait abnormality ?R26.89 - Other abnormalities of gait and mobility (ICD-10) Pacemaker ?Z95.0 - Presence of cardiac pacemaker (ICD-10) Cardiac abnormality ?Q24.9 - Congenital malformation of heart, unspecified (ICD-10) Surgical History Status post-operative repair of hip fracture ?Z98.890 - Other specified postprocedural states (ICD-10) ?Z87.81 - Personal history of (healed) traumatic fracture (ICD-10) Status post cataract surgery ?Z98.49 - Cataract extraction status, unspecified eye (ICD-10) Status post hemorrhoidectomy ?Z98.890 - Other specified postprocedural states (ICD-10) ?Z87.19 - Personal history of other diseases of the digestive system (ICD-10) History of esophagogastroduodenoscopy (EGD) ?Z98.890 - Other specified postprocedural states (ICD-10) S/P colonoscopy ?Z98.890 - Other specified postprocedural states (ICD-10) Status post appendectomy ?Z90.49 - Acquired absence of other specified parts of digestive tract (ICD-10) Status post biventricular cardiac pacemaker insertion ?Z95.0 - Presence of cardiac pacemaker (ICD-10) Social History Narrative: . Lives with in assisted living facility with 24/ care at home. Retired [employer] [place] [employer]. Designates son, Roldan, as POA for health if needed, cell phone [phone]. Dr. Cárdenas is his PCP. Would like full medical treatment for medical management, but no CPR/intubation. What is your current living situation?: I presently have a place to live Problems where you live: no known problems Problems where you live details: None In the past 12 months, utilities in danger of being shut off: no In the past 12 mos, have been you worried that your food would run out before you had money to buy more?: unable to answer In the past 12 mos, the food you bought just didn't last and you didn't have money to buy more?: unable to answer Highest level of school completed/degree received: Master's degree Smoking Status: Former smoker Do you use any of these nicotine containing products: None Second hand tobacco smoke exposure: No How often do you have a drink containing alcohol: never AUDIT-C Alcohol total score: 0 Non-prescribed substance use: denies use Caffeine: Yes How often does anyone, including family, friends and others, physically hurt you: never How often does anyone, including family, friends and others, insult or talk down to you: never How often does anyone, including family, friends and others, threaten you with harm: never How often does anyone, including family, friends and others, scream or curse at you: never service: No Exam Narrative: Exam Narrative: Const: Well-nourished, Well-developed, in mild distress Eyes: PERRL, no conjunctival injection, and symmetrical lids HENT: Atraumatic external nose and ears. Moist mucous membranes. Laceration noted to Neck: Symmetric, trachea midline, No thyromegaly. no midline cervical tenderness CVS: RRR, No murmurs or gallops. Peripheral pulses 2+ and equal in all extremities RESP: Unlabored respiratory effort. Clear to auscultation bilaterally. GI: Nontender/Nondistended, No rebound or guarding. MSK:Extremities w/o deformity, Normal Active ROM Skin: Warm, Dry. No rashes or lesions. Neuro: Normal Muscle tone, No focal neurological deficits. Psych: Awake, Alert, & Oriented to self Const: Vital Signs, click to edit/add: Vital Signs - 24 hr 01/20/24 20:27 01/20/24 22:25 Temperature 98 F Pulse Rate [Pulse Oximeter] 79 72 Respiratory Rate 16 16 Blood Pressure [Ri ght Upper Arm] 121/86 127/82 Pulse Oximetry 99 98 Oxygen Delivery Me thod Room Air Room Air Course Vital Signs Vital signs: Initial Vital Signs Temperature 98 F 01/20/24 20:27 Temperature Source Temporal Artery Scan 01/20/24 20:27 Pulse Rate 79 01/20/24 20:27 Respiratory Rate 16 01/20/24 20:27 Blood Pressure 121/86 01/20/24 20:27 Blood Pressure Mean 97 01/20/24 20:27 Blood Pressure Position Supine 01/20/24 20:27 Pulse Oximetry 99 01/20/24 20:27 Oxygen Delivery Method Room Air 01/20/24 20:27 Vital Signs Temperature 98 F 01/20/24 20:27 Pulse Rate 79 01/20/24 20:27 Respiratory Rate 16 01/20/24 20:27 Blood Pressure 121/86 01/20/24 20:27 Pulse Oximetry 99 01/20/24 20:27 Oxygen Delivery Method Room Air 01/20/24 20:27 Temperature 98 F 01/20/24 20:27 Pulse Rate 72 01/20/24 22:25 Respiratory Rate 16 01/20/24 22:25 Blood Pressure 127/82 01/20/24 22:25 Pulse Oximetry 98 01/20/24 22:25 Oxygen Delivery Method Room Air 01/20/24 22:25 MDM - Fall MDM Narrative Medical decision making narrative: patient is an 88-year-old male presenting to the emergency department after a fall. There is bleeding to the left side of his head that has since stopped. Is in no other distress. Since I cannot definitively say with the fall was from I will do some basic lab works and an EKG. Will do CT scan of his head and cervical spine. CT scans reviewed by myself and the radiologist showed no acute concerning abnormalities. Removed the neck brace and he has full range of motion of his neck. Cervical spine cleared. He does have a 1.5 cm laceration back of his head. This was closed with jeff. Lab work returned showing no concerning abnormalities. EKG shows no concerning findings. He was unable to give a urine sample with considering the patient is doing well I am comfortable discharging dull urine sample. We were going to attempt to have the patient ambulate to make sure he is safe for discharge family states they have multiple device at home to help him get around and are not concerned about his ambulation states. Patient will be discharged Lab Data Labs: Lab Results 01/20/24 Range/Units 20:00 WBC 8.57 (4.50-11.00) K/uL RBC 3.82 L (4.30-5.90) m/uL Hgb 12.4 L (13.5-17.5) gm/dL Hct 37.4 (37.0-53.0) % MCV 98 (80-100) fL MCH 33 (26-34) pg MCHC 33 (32-36) gm/dL RDW Coeff of Claudia 13.5 (11.5-15.5) % Plt Count Not Reportable Neut % (Auto) 68.6 (42.0-72.0) % Lymph % (Auto) 19.7 L (20-44) % [place] % (Auto) 10.0 (0.0-11.0) % Eos % (Auto) 1.3 (0.0-7.0) % Baso % (Auto) 0.2 (0.0-3.0) % Neut # (Auto) 5.87 (1.7-7.0) K/uL Lymph # (Auto) 1.70 (0.90-2.90) K/uL [place] # (Auto) 0.90 (0.00-0.90) K/UL Eos # (Auto) 0.11 (0.00-0.50) K/uL Baso # (Auto) 0.02 (0.00-0.30) K/uL Abs Immat Gran (auto) 0.02 (0.00-0.30) K/uL Imm/Tot Granulo (auto) 0.2 % Sodium 135 (135-149) mmol/L Potassium 4.7 (3.6-5.1) mmol/L Chloride 104 (96-114) mmol/L Carbon Dioxide 24 (20-32) mmol/L Anion Gap 7 (7-15) mEq/L BUN 27 (7-30) mg/dL Creatinine 0.9 (0.5-1.5) mg/dL Estimated GFR 83 ml/min Glucose 81 (60-115) mg/dL Calcium 9.2 (8.4-10.6) mg/dL Troponin I < 0.01 L (0.01-0.04) ng/mL SARS-CoV-2 (PCR) Negative SARS-CoV-2 (Negative) Influenza Type A (PCR) Negative PCR FLU A (Negative) Influenza Type B (PCR) Negative PCR FLU B (Negative) Imaging Data CT scan head: Attestation: I have reviewed the pertinent imaging results. Radiologist's impression: No acute intracranial abnormality. Please note that all CT scans at this facility use dose modulation, iterative reconstruction, and/or weight-based dosing when appropriate to reduce radiation dose to as low as reasonably achievable. Dictated by Dmitri Mendoza MD @ 01/20/2024 9:44:[address] scan cervical spine: Radiologist's impression: 1. No acute fracture or traumatic subluxation. 2. Moderate cervical spondylosis with multilevel neural foraminal narrowing. Please note that all CT scans at this facility use dose modulation, iterative reconstruction, and/or weight-based dosing when appropriate to reduce radiation dose to as low as reasonably achievable. Dictated by Dmitri Mendoza MD @ 01/20/2024 9:52:31 PM ECG Data Attestation: I personally reviewed and interpreted this ECG as follows: Prior ECG tracings: available for review Interpretation: Atrial paced rhythm with a rate of 71 beats per minute, left axis deviation, no ST or T-wave abnormalities. Appears similar to previous EKGs on file Discharge Plan Discharge Clinical Impression: Closed head injury Qualifiers: Encounter type: initial encounter Qualified Code(s): S09.90XA - Unspecified injury of head, initial encounter Laceration of scalp Qualifiers: Encounter type: initial encounter Qualified Code(s): S01.01XA - Laceration without foreign body of scalp, initial encounter Prescriptions: No Action sertraline 50 mg tablet 100 mg PO DAILY acetaminophen [Tylenol Extra Strength] 500 mg tablet 1,000 mg PO BID PRN multivitamin [Daily Multi-Vitamin] Tablet 1 tab PO DAILY eplerenone 25 mg tablet 12.5 mg PO DAILY levothyroxine 75 mcg tablet 75 mcg PO DAILY Entresto 24-26 mg tablet 1 tab PO BID metoprolol succinate 25 mg tablet extended release 24 hr 25 mg PO HS rivastigmine tartrate 3 mg capsule 6 mg PO BID PreserVision AREDS-2 250-90-40-1 mg capsule 1 tab PO DAILY polyethylene glycol 3350 [Miralax] 17 gram/dose powder 17 g PO DAILY PRN Metamucil 3.4 gram/5.4 gram powder 1 tbsp PO BID PRN Rx Instructions: mix into at least 8 oz of water or juice before administering sennosides-docusate sodium [Stool Softener-Laxative] 8.6-50 mg Tablet 2 tab PO BID Qty: 60 0RF mometasone 50 mcg/actuation spray,non-aerosol 2 spray intranasal DAILY PRN (Reason: nasal congestion) Qty: 17 0RF Rx Instructions: administer into each nostril melatonin 3 mg Tablet 3 mg PO HS Qty: 30 0RF divalproex 250 mg tablet extended release 24 hr 250 mg PO DAILY PRN Follow Up/Referrals: Abebe Cárdenas MD [Primary Care Provider] - Procedures Laceration Scalp: Site: scalp Size (cm): 1.5 Description: linear and clean Depth: simple, single layer Local Anesthetic: lidocaine 1% Amount of anesthesia used (mL): 2 Pre-repair: wound explored, irrigated extensively and deep structures intact Skin layer closed with: other (Jeff, 4)
[2024-01-20 22:08] LABS: Basophils Absolute Auto 0.02 K/uL (0.00-0.30); Basophils Percent Auto 0.2 % (0.0-3.0); Eosinophils Absolute Auto 0.11 K/uL (0.00-0.50); Eosinophils Percent Auto 1.3 % (0.0-7.0); Hematocrit 37.4 % (37.0-53.0); Hemoglobin* 12.4 gm/dL (13.5-17.5); Immature Granulocytes Abs Auto 0.02 K/uL (0.00-0.30); Immature Granulocytes Pct Auto 0.2 %; Lymphocytes Percent Auto 19.7 % (20-44); Mean Corpuscular HGB Conc 33 gm/dL (32-36); Mean Corpuscular Hemoglobin 33 pg (26-34); Mean Corpuscular Volume 98 fL (80-100); Neutrophils Absolute Auto 5.87 K/uL (1.7-7.0); Neutrophils Percent Auto 68.6 % (42.0-72.0); RDW Coefficient of Variation % 13.5 % (11.5-15.5); Red Blood Count 3.82 m/uL (4.30-5.90); White Blood Count* 8.57 K/uL (4.50-11.00)
[2024-01-20 22:16] LABS: Chloride* 104 mmol/L (96-114); Potassium* 4.7 mmol/L (3.6-5.1); Sodium* 135 mmol/L (135-149)
[2024-01-20 22:19] LABS: Anion Gap 7 mEq/L (7-15); Blood Urea Nitrogen* 27 mg/dL (7-30); Carbon Dioxide* 24 mmol/L (20-32); Creatinine* 0.9 mg/dL (0.5-1.5); Estimated Glomerular Filt Rate 83 ml/min
[2024-01-20 22:20] LABS: Calcium* 9.2 mg/dL (8.4-10.6); Glucose* 81 mg/dL (60-115)
[2024-01-20 22:25] VITALS: BP 127/82; PULSE 72; RESP 16; O2SAT 98
[2024-01-20 22:33] LABS: Slide Review Reflex No
[2024-01-20 22:36] LABS: Troponin I* < 0.01 ng/mL (0.01-0.04)
[2024-01-20 22:47] LABS: PCR FLU A Negative PCR FLU A (Negative); PCR FLU B Negative PCR FLU B (Negative); SARS PCR* Negative SARS-CoV-2 (Negative)
== END 2024-01-20 23:21 | disposition home or self-care (01) ==
LOC: ED 23:10
PROVIDERS: Emergency Provider Student in an Organized Health Care Education/Training Program; PCP Family Medicine
DX: S01.01XA Laceration without foreign body of scalp, initial encounter (principal); S09.90XA Unspecified injury of head, initial encounter; W01.0XXA Fall on same level from slipping, tripping and stumbling without subsequent striking against object, initial encounter; Y93.9 Activity, unspecified; Y92.002 Bathroom of unspecified non-institutional (private) residence as the place of occurrence of the external cause
CPT/HCPCS: 12001; 36415; 70450; 72125; 80048; 81001; 84484; 85025; 87631; 93005; 99284; 99285

== ENCOUNTER 2024-03-12 17:31 | Outpatient (CLI) | payer OTHER, SELFPAY | END 2024-03-12 17:32 | disposition home or self-care (01) | LOC: AMB 03-26 23:32 | PROVIDERS: PCP Family Medicine; Visit Provider Emergency Medicine Emergency Medical Services | DX: R53.1 Weakness (principal) ==